=== PATIENT | male | born 1975 | race Caucasian/White ===

== ENCOUNTER → 2016-09-10 | Outpatient (CLI) | payer MEDICAID ==
[~2016-09-10] MED LIST: /PANT40TA PO; AMLO5TAB2 PO; BACL10TA PO; BUSP15TA47 PO; NORCOTAB PO; PAXI20TA3 PO; TRAZ10TA PO; VICOBULK PO; ativan PO
--- NOTE | 2016-09-21 00:32 | ECWPNPC ---
PATIENT NAME: LUL ORTIZ : 1975 GENDER: MALE VISIT DATE: 09/10/2016 DISCHARGE DATE: 09/10/16 1556 VISIT LOCKED DATE TIME: PHYSICIAN: BETAHNY HUTCHISON RESOURCE: BETHANY HUTCHISON REASON FOR APPOINTMENT 1. BACK HISTORY OF PRESENT ILLNESS HISTORY OF PRESENT ILLNESS: 41 YEAR OLD MALE PATIENT WITH HISTORY OF CHRONIC BACK PAIN. PATIENT DESCRIBES THE PAIN ACHING, STABBING, THROBBING, SORE, SHOOTING, AND HAVING IT ALL THE TIME WITH A PAIN SCORE OF 6/10 ON TODAY'S VISIT. PATIENT REPORTS THAT HE WAS HOSPITALIZED ON 2016 DUE TO UTI AND PRESSURE WOUNDS. PATIENT REPORTS THAT TAKING TRAMADOL HELPS HIM SLEEP AT NIGHT. MELOXICAM GIVES UPSETS HIS STOMACH. PATIENT REPORTS THAT LIDOCAINE CREAM WORKS PRETTY GOOD FOR THE APPLIED AREA. PATIENT STATES THAT FIORICET WORKS GOOD AT KEEPING HIS MIGRAINES DOWN. PATIENT REPORTS THAT HE IS STILL RECOVERING FROM PRESSURE ULCERS AND THAT HE HAS TO WAIT BEFORE GETTING ANY MORE INJECTIONS AT THIS TIME. PATIENT INQUIRED WHAT HE CAN TAKE FOR THE PAIN SINCE HE CAN NOT HAVE INJECTIONS AT THIS TIME. PATIENT DENIES UNEXPLAINABLE WEIGHT LOSS, FEVER, CHILLS, NEW CHANGES ON HIS URINARY OR BOWEL CONTROL. FALL RISK SCREENING: SCREENING :NO FALLS IN THE PAST YEAR CURRENT MEDICATIONS TAKING AMLODIPINE BESYLATE 10 MG TABLET ORALLY ONCE DAILY, NOTES: 03/05/16 AT 0415 TAKING LISINOPRIL 10 MG TABLET ORALLY ONCE DAILY, NOTES: 03/05/16414 TAKING PROTONIX 40 MG TABLET DELAYED RELEASE ORALLY TWICE DAILY, NOTES: 03/05/16414 TAKING SPIRIVA HANDIHALER 18 MCG CAPSULE INHALATION ONCE DAILY, NOTES: 03/05/16414 TAKING LIDOCAINE 5 % OINTMENT 1 APPLICATION TO AFFECTED AREA NEEDED EXTERNALLY THREE TIMES A DAY TO PAINFUL AREAS OF BACK AND SHOULDERS USE SMALL AMOUNT, NOTES: 03/04/162229 TAKING VENTOLIN HFA 108 (90 BASE) MCG/ACT AEROSOL SOLUTION 2 PUFFS NEEDED INHALATION EVERY 4 HRS TAKING FIORICET APAP 325-50-40 CAPSULE 1 CAPSULE NEEDED ORALLY AT ONSET OF MIGRAINE MDD=1 TAKING TRAZODONE HCL 100 MG TABLET 1 TABLET AT BEDTIME ORALLY ONCE A DAY TAKING FOLIC ACID 1 MG TABLET 1 TABLET ORALLY ONCE A DAY NOT-TAKING MELOXICAM 15 MG TABLET ORALLY ONCE DAILY, NOTES: 03/05/165 NOT-TAKING METHOCARBAMOL 500 MG TABLET ORALLY ONCE DAILY, NOTES: 03/05/16414 NOT-TAKING LIDOCAINE 4 % CREAM DIRECTED EXTERNALLY APPLY TO NECK, THORACIC SCAR AND LOW BACK PAINFUL AREAS Q 6 HRS PRN PAIN DISCONTINUED ZOLPIDEM TARTRATE 10 MG TABLET 1 TABLET AT BEDTIME NEEDED ORALLY ONCE A DAY, NOTES: 03/03/16 MEDICATION LIST REVIEWED AND RECONCILED WITH THE PATIENT PAST MEDICAL HISTORY HYPERTENSION ASTHMA GERD KIDNEY INFECTIONS BACK PAIN ARTHRITIS NECK PAIN DEPRESSION SPINABIFIDA NEUROGENIC BLADDER ALLERGIES ASPIRIN EC: RASH: ALLERGY LATEX: RASH: ALLERGY BANANAS: NAUSEA/VOMITING: SIDE EFFECTS CIPRO: NAUSEA/VOMITING: SIDE EFFECTS SURGICAL HISTORY RIGHT KNEE SURGERY RIGHT AND LEFT ANKLE SURGERY BACK SURGERY-METAL RODS PLACED RIGHT AND LEFT HIP SURGERY-METAL IMPLANT IN LEFT TOE SURGERY BILATERAL FEET EPIC SPECIALIST SHUNT PLACEMENT COLOSTOMY 2011 FAMILY HISTORY NO FAMILY HISTORY DOCUMENTED. SOCIAL HISTORY GENERAL: TOBACCO USE ARE YOU A:NONSMOKER LEARNING BARRIERS / SPECIAL NEEDS ORIENTED TO PLAN OF CARE: PATIENT, PAIN MANAGEMENT PATIENT, ORIENTED TO PLAN OF CARE: PATIENT, PAIN MANAGEMENT PATIENT. NEW PATIENT PAIN DIARY TODAY'S VISITNOTES FROM 0-10, WHAT LEVEL IS YOUR PAIN TODAY?0 PAIN CLINIC PFS, CLERGY, PUBLIC HEALTH REFERRALS PFS REFERRAL NEEDED?NO CLERGY REFERRAL NEEDED?NO PUBLIC HEALTH REFERRAL NEEDED?NO WAS THE PROVIDER NOTIFIED OF ANY PERTINENT INFO?NO PFS REFERRAL NEEDED?NO CLERGY REFERRAL NEEDED?NO PUBLIC HEALTH REFERRAL NEEDED?NO WAS THE PROVIDER NOTIFIED OF ANY PERTINENT INFO?NO HOSPITALIZATION/MAJOR DIAGNOSTIC PROCEDURE RELATED TO ORTHOPEDIC SURGERY URINARY TRACT INFECTION 2015 UTI 07/2016 REVIEW OF SYSTEMS CONSTITUTIONAL: ANY CHANGE IN YOUR MEDICAL CONDITION? YES HOSPITALIZED 07/[address] [facility]. PT STATES DEVELOPED SACRAL PRESSURE ULCERS. . CHILLS NO . FEVER NO . INFECTION: DO YOU HAVE NEW INFECTIONS? NO . DO YOU HAVE HISTORY OF MRSA? NO . MUSCULOSKELETAL: ANY NEW PATTERNS OF PAIN OR NUMBNESS? NO . GASTROENTEROLOGY: ANY NEW CHANGE IN BOWEL CONTROL? NO . GENITOURINARY: ANY NEW CHANGE IN BLADDER CONTROL? NO . IS THERE A CHANCE YOU COULD BE ? NO . HEMATOLOGY/LYMPH: DO YOU TAKE ANY BLOOD THINNERS? (FOR EXAMPLE- COUMADIN, PLAVIX, AGGRENOX, PLATEL, PRADAXA, OR XARELTO) NO . WHEN WAS YOUR LAST DOSE? DATE: TIME: . NEUROLOGY: HAVE YOU FALLEN IN THE PAST 6 MONTHS? NO . ANY NEW EXTREMITY NUMBNESS OR WEAKNESS? NO . CARDIOLOGY: DO YOU HAVE A PACEMAKER OR DEFIBRILLATOR? NO . RESPIRATORY: HAVE YOU BEEN SICK IN THE PAST WEEK? NO . FEVER NO . FLU LIKE SYMPTOMS? NO . COUGH NO . INTEGUMENTARY: DO YOU HAVE ANY RASHES OR OPEN SORES? YES &QUOT; PRESSURE WOUNDS&QUOT; . ALLERGIC/IMMUNO: ARE YOU ALLERGIC TO SHELLFISH OR IV DYE? NO . ANY NEW ALLERGIES? NO . PSYCHIATRIC: DO YOU HAVE THOUGHTS OF HURTING YOURSELF OR SOMEONE ELSE? NO . ARE YOU ABUSED, NEGLECTED, OR IN AN UNSAFE ENVIRONMENT? NO . ENDOCRINOLOGY: ARE YOU DIABETIC? NO . OTHER: DO YOU NEED ANY PRESCRIPTIONS? YES FIORICET/LIDOCAINE CREAM . IF YES, PLEASE LIST: ____ . ANY NEW PROBLEMS WITH YOUR MEDICATIONS? NO . WHEN DID YOU LAST EAT? ____ . WHEN DID YOU LAST DRINK? ____ . WHAT DID YOU LAST DRINK? ____ . NAME OF PERSON DRIVING YOU HOME? ____ . DO YOU HAVE ANY OTHER QUESTIONS OR CONCERNS NO . REVIEWED BY: PROVIDER: BETHANY HUTCHISON MD . VITAL SIGNS WT 105 LBS, HT 60 IN, BMI 20.50 INDEX, BP 135/95 MM HG, HR 84 /MIN, RR 16 /MIN, TEMP 96.9 F, OXYGEN SAT % 100, NA INITIALS TL 1455, REVIEWED BY: MLF. EXAMINATION : PATIENT IS ALERT O X 3 AND COOPERATIVE. THERE IS TENDERNESS IN THE RIGHT AND LEFT SHOULDER AND THORACIC PARASPINAL MUSCLE GROUP, WITH BANDS OF TISSUES, RESTRICTION OF MOVEMENT, AND PRESENCE OF TRIGGER POINTS. ASSESSMENTS MYALGIA - M79.1 (PRIMARY) POST LAMINECTOMY SYNDROME - M96.1 SPASTICITY - R25.2 PARAPLEGIA - G82.20 TREATMENT MYALGIA REFILL LIDOCAINE OINTMENT, 5 %, 1 APPLICATION TO AFFECTED AREA NEEDED, EXTERNALLY, THREE TIMES A DAY TO PAINFUL AREAS OF BACK AND SHOULDERS USE SMALL AMOUNT, 30 DAY(S), 3 TUBE, REFILLS 1, NOTES: 03/04/16 2230 REFILL FIORICET APAP CAPSULE, 325-50-40, 1 CAPSULE NEEDED, ORALLY, AT ONSET OF MIGRAINE MDD=1, 30 DAY(S), 15, REFILLS 1 NOTES: WE DISCUSSED SEVERAL ISSUES ABOUT MR. ORTIZ PAIN MANAGEMENT CASE. AT THIS TIME DUE TO THE PRESSURE ULCERS I DISCUSSED WITH THE PATIENT THAT WE WILL NEED TO HOLD OFF ANY PROCEDURES, PATIENT AGREES. TODAY I WILL REFILL PATIENTS LIDOCAINE CREAM AND FIORICET. PATIENT TO FOLLOW UP WITH ME IN 6 WEEKS. INSTRUCTIONS WERE GIVEN, QUESTIONS WERE ANSWERED, PATIENT REPORTS UNDERSTANDING AND AGREES WITH THE PLAN. I, KANDIS CAMPBELL, DOCUMENTED THE ABOVE INFORMATION ACTING A SCRIBE FOR DR. HUTCHISON. I HAVE REVIEWED THE ABOVE DOCUMENT, WRITTEN BY KANDIS CAMPBELL SCRIBE AND I VERIFY THAT IT IS ACCURATE. PROCEDURE CODES FA211 ESTABILISHED PATIENT [facility] FACILITY CHARGE G8730 PAIN ASSESS POS TOOL F/U PLAN DOC G8427 DOC MEDS VERIFIED W/PT OR RE DISPOSITION & COMMUNICATION ELECTRONICALLY SIGNED BY BETHANY HUTCHISON MD ON 09/20/2016 AT 07:32 PM EDT DISCLAIMER : THIS IS A VISIT SUMMARY EXTRACTED FROM THE [email or web address] CHART. IT IS NOT A COPY OF THE [employer] PROGRESS NOTE. MTDD
== END ==
LOC: M PAIN 15:00
PROVIDERS: ATTEND Anesthesiology
DX: Z09 Encounter for follow-up examination after completed treatment for conditions other than malignant neoplasm (principal); G89.29 Other chronic pain; M79.1 Myalgia; M96.1 Postlaminectomy syndrome, not elsewhere classified; R25.2 Cramp and spasm; G82.20 Paraplegia, unspecified; I10 Essential (primary) hypertension; J45.909 Unspecified asthma, uncomplicated; K21.9 Gastro-esophageal reflux disease without esophagitis; M19.90 Unspecified osteoarthritis, unspecified site; F32.9 Major depressive disorder, single episode, unspecified; Q05.9 Spina bifida, unspecified; N31.9 Neuromuscular dysfunction of bladder, unspecified; Z88.6 Allergy status to analgesic agent; Z91.040 Latex allergy status; Z91.018 Allergy to other foods; Z88.8 Allergy status to other drugs, medicaments and biological substances; Z79.899 Other long term (current) drug therapy

== ENCOUNTER → 2017-05-06 | Outpatient (CLI) | payer MEDICAID ==
--- NOTE | 2017-05-23 | ECWPNPC ---
PATIENT NAME: ULL ORTIZ : 1975 GENDER: MALE VISIT DATE: 05/06/2017 DISCHARGE DATE: 05/06/17 1507 VISIT LOCKED DATE TIME: PHYSICIAN: BETHANY HUTCHISON RESOURCE: BETHANY HUTCHISON REASON FOR APPOINTMENT 1. LEFT SHOULDER PAIN HISTORY OF PRESENT ILLNESS NEW PATIENT CONSULT: WHEN DID YOUR PAIN FIRST START? . BRIEFLY DESCRIBE HOW YOUR PAIN STARTED? . HOW DOES YOUR PAIN CHANGE WITH TIME? . DOES YOUR PAIN AWAKEN YOU FROM SLEEP? . HOW MANY HOURS OF SLEEP DO YOU NORMALLY GET? . ANY DIAGNOSTIC TESTING? . FACILITY WHERE TESTS WERE DONE? ____. PAIN TREATMENT TREATMENT YES CANCER HAVE YOU EVER HAD ANY TYPE OF CANCER?NO NO. 41 YEAR OLD MALE PATIENT WITH HISTORY OF CHRONIC LEFT SHOULDER PAIN. PATIENT DESCRIBES THE PAIN ACHING, THROBBING, AND TENDER WITH A PAIN SCORE OF 7/10. PATIENT REPORTS THE PAIN STARTED ROUGHLY 6 MONTHS AGO WITH NO TRAUMA. PATIENT STATES THAT IT IS DIFFICULT TO MOVE HIS LEFT ARM DUE TO THE PAIN. PATIENT IS RECEIVING VICODIN FROM HIS PRIMARY CARE PHYSICIAN FOR THIS PAIN. PATIENT DENIES UNEXPLAINABLE WEIGHT LOSS, FEVER, CHILLS, NEW CHANGES ON HIS URINARY OR BOWEL CONTROL. PAIN SCREENING: PATIENT HAS A COMPLAINT OF ACUTE OR CHRONIC PAIN :YES FALL RISK SCREENING: SCREENING :NO FALLS IN THE PAST YEAR POOLE INVENTORY: QUESTIONNAIRE ASSESSEDTBD SCORE VALUE CALCULATED TBD CURRENT MEDICATIONS TAKING LIDOCAINE 5 % OINTMENT 1 APPLICATION TO AFFECTED AREA NEEDED EXTERNALLY THREE TIMES A DAY TO PAINFUL AREAS OF BACK AND SHOULDERS USE SMALL AMOUNT TAKING FIORICET APAP 325-50-40 CAPSULE 1 CAPSULE NEEDED ORALLY AT ONSET OF MIGRAINE MDD=1 TAKING AMLODIPINE BESYLATE 10 MG TABLET ORALLY ONCE DAILY, NOTES: 03/05/16 AT 0415 TAKING LISINOPRIL 10 MG TABLET ORALLY ONCE DAILY, NOTES: 03/05/16414 TAKING PROTONIX 40 MG TABLET DELAYED RELEASE ORALLY TWICE DAILY, NOTES: 03/05/16414 TAKING SPIRIVA HANDIHALER 18 MCG CAPSULE INHALATION ONCE DAILY, NOTES: 03/05/16414 TAKING VENTOLIN HFA 108 (90 BASE) MCG/ACT AEROSOL SOLUTION 2 PUFFS NEEDED INHALATION EVERY 4 HRS TAKING TRAZODONE HCL 100 MG TABLET 1 TABLET AT BEDTIME ORALLY ONCE A DAY TAKING FOLIC ACID 1 MG TABLET 1 TABLET ORALLY ONCE A DAY TAKING VICODIN 5-300 MG TABLET 1 TABLET NEEDED ORALLY EVERY NOT-TAKING MELOXICAM 15 MG TABLET ORALLY ONCE DAILY, NOTES: 03/05/16414 NOT-TAKING METHOCARBAMOL 500 MG TABLET ORALLY ONCE DAILY, NOTES: 03/05/16414 NOT-TAKING LIDOCAINE 4 % CREAM DIRECTED EXTERNALLY APPLY TO NECK, THORACIC SCAR AND LOW BACK PAINFUL AREAS Q 6 HRS PRN PAIN MEDICATION LIST REVIEWED AND RECONCILED WITH THE PATIENT PAST MEDICAL HISTORY HYPERTENSION ASTHMA GERD KIDNEY INFECTIONS BACK PAIN ARTHRITIS NECK PAIN DEPRESSION SPINABIFIDA NEUROGENIC BLADDER ALLERGIES ASPIRIN EC: RASH: ALLERGY LATEX: RASH: ALLERGY BANANAS: NAUSEA/VOMITING: SIDE EFFECTS CIPRO: NAUSEA/VOMITING: SIDE EFFECTS SURGICAL HISTORY RIGHT KNEE SURGERY RIGHT AND LEFT ANKLE SURGERY BACK SURGERY-METAL RODS PLACED RIGHT AND LEFT HIP SURGERY-METAL IMPLANT IN LEFT TOE SURGERY BILATERAL FEET FULL STACK ENGINEER SHUNT PLACEMENT COLOSTOMY 2011 FAMILY HISTORY FATHER: ALIVE MOTHER: ALIVE, DIAGNOSED WITH HYPERTENSION SIBLINGS: ALIVE NO CHILDREN. 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 DIET: REGULAR DIET. EXERCISE: NO REGULAR EXERCISE. MARITAL STATUS: . OTHERS AT HOME: CAT AT HOME. PETS: YES CAT. YAZIDI [id number] SABIANIST PENTECOSTALISM LANGUAGE LANGUAGES SPOKEN:[place] EDUCATION LEVEL OF EDUCATION:[employer] LEARNING BARRIERS / SPECIAL NEEDS BARRIERS TO LEARNING?YES LEARNING PREFERENCES?YES :DEMONSTRATION/VERBAL INSTRUCTION SPECIAL DEVICES?YES :WHEELCHAIR PARKING METER INSTALLER NEEDED?YES FOR READING AND WRITING ANY PAPERWORK IMMUNIZATION PROGRAM YES CAT. MEDICATION ABUSE YES PT STATES SEVERAL YEARS AGO (6) HE ABUSED PAIN MEDICAIONS PAIN CLINIC PFS, CLERGY, PUBLIC HEALTH REFERRALS PFS REFERRAL NEEDED?NO CLERGY REFERRAL NEEDED?NO PUBLIC HEALTH REFERRAL NEEDED?NO WAS THE PROVIDER NOTIFIED OF ANY PERTINENT INFO?NO HAS THE PATIENT BEEN EDUCATED REGARDING HIS/HER PLAN OF CARE?YES HAS THE PATIENT BEEN EDUCATED REGARDING PAIN, THE RISK FOR PAIN, THE IMPORTANCE OF EFFECTIVE PAIN MANAGEMENT, AND THE PAIN ASSESSMENT PROCESS?YES PATIENT: ____. ADVANCE DIRECTIVES HEALTH CARE PROXY?NO WOULD YOU LIKE MORE INFORMATION?YES GAVE PT PAPERWORK DO YOU HAVE A DNR?NO WOULD YOU LIKE MORE INFORMATION?NO RETIRED: NO, PT DISABLED. HOSPITALIZATION/MAJOR DIAGNOSTIC PROCEDURE RELATED TO ORTHOPEDIC SURGERY URINARY TRACT INFECTION 2015 UTI 07/2016 REVIEW OF SYSTEMS REVIEWED BY: PROVIDER: BETHANY HUTCHISON MD . CONSTITUTIONAL: ANY CHANGE IN YOUR MEDICAL CONDITION? NO . CHILLS NO . FEVER NO . INFECTION: DO YOU HAVE NEW INFECTIONS? NO . DO YOU HAVE HISTORY OF MRSA? NO . MUSCULOSKELETAL: ANY NEW PATTERNS OF PAIN OR NUMBNESS? YES LEFT SHOULDER . SYTEMIC LUPUS NO . GASTROENTEROLOGY: ANY NEW CHANGE IN BOWEL CONTROL? NO . BARRETTS ESOPHAGUS NO . CIRRHOSIS NO . HEPATITIS NO . LIVER FAILURE NO . ACID REFLUX NO . UNEXPLAINED WEIGHT LOSS NO . GENITOURINARY: ANY NEW CHANGE IN BLADDER CONTROL? PT SELF CATHS AND HAS BEEN FOR ALONG TIME . IS THERE A CHANCE YOU COULD BE ? NO . HEMATOLOGY/LYMPH: DO YOU TAKE ANY BLOOD THINNERS? (FOR EXAMPLE- COUMADIN, PLAVIX, AGGRENOX, PLATEL, PRADAXA, OR XARELTO) NO . WHEN WAS YOUR LAST DOSE? DATE: TIME: . LOW PLATELET COUNT NO . SICKLE CELL DISEASE NO . VON WILLIEBRANDS NO . FACTOR V LEIDEN NO . THALLASEMIA NO . ANEMIA NO . EASY BRUISING NO . NEUROLOGY: HAVE YOU FALLEN IN THE PAST 6 MONTHS? NO . ANY NEW EXTREMITY NUMBNESS OR WEAKNESS? NO . HEAD INJURY NO . DEMENTIA NO . CEREBRAL PALSY NO . MULTIPLE SCLEROSIS NO . DIZZINESS NO . HEADACHE NO . STROKES NO . VERTIGO NO . CARDIOLOGY: DO YOU HAVE A PACEMAKER OR DEFIBRILLATOR? NO . ANGINA NO . HEART ATTACK NO . HEART SURGERY NO . CONGESTIVE HEART FAILURE/FLUID OVERLOAD NO . CHEST PAIN NO . HIGH BLOOD PRESSURE NO . IRREGULAR HEART BEAT NO . RESPIRATORY: HAVE YOU BEEN SICK IN THE PAST WEEK? NO . FEVER NO . FLU LIKE SYMPTOMS? NO . CPAP NO . BYPAP NO . ASTHMA NO . EMPHYSEMA NO . CHRONIC LUNG DISEASES ASTHMA AND IS ON RESPIRATORY MEDS, YES . SHORTNESS OF BREATH ON EXERTION NO . DO YOU USE ANY TYPE OF TOBACCO (SMOKE, SMOKELESS, CHEW)? NO . COUGH NO . SNORING NO . INTEGUMENTARY: DO YOU HAVE ANY RASHES OR OPEN SORES? NO . ALLERGIC/IMMUNO: ARE YOU ALLERGIC TO SHELLFISH OR IV DYE? NO . ANY NEW ALLERGIES? NO . PSYCHIATRIC: DO YOU HAVE THOUGHTS OF HURTING YOURSELF OR SOMEONE ELSE? NO . ARE YOU ABUSED, NEGLECTED, OR IN AN UNSAFE ENVIRONMENT? NO . ENDOCRINOLOGY: ARE YOU DIABETIC? NO . THYROID DISORDER NO . OTHER: DO YOU NEED ANY PRESCRIPTIONS? NO . IF YES, PLEASE LIST: ____ . ANY NEW PROBLEMS WITH YOUR MEDICATIONS? NO . WHEN DID YOU LAST EAT? ____ . WHEN DID YOU LAST DRINK? ____ . WHAT DID YOU LAST DRINK? ____ . NAME OF PERSON DRIVING YOU HOME? ____ . DO YOU HAVE ANY OTHER QUESTIONS OR CONCERNS NO . VITAL SIGNS WT 111.9 LBS, HT 60 IN, BMI 21.85 INDEX, BP 163/97 MM HG, HR 94 /MIN, RR 18 /MIN, TEMP 97.0 F, OXYGEN SAT % 100%, NA INITIALS TL 1310, REVIEWED BY: KG. EXAMINATION : PATIENT IS ALERT O X 3 AND COOPERATIVE. TENDERNESS IN THE LEFT SHOULDER AREA. MRI OF THE LEFT SHOULDER AREA ON THE 02/18/17 SHOWS MINOR TENDINOSIS OF THE DISTAL SUPRASPINATUS TENDON. ASSESSMENTS MYALGIA - M79.1 (PRIMARY) PAIN IN LEFT SHOULDER - M25.512 OTHER CHRONIC PAIN - G89.29 TREATMENT MYALGIA NOTES: WE DISCUSSED SEVERAL ISSUES WITH MR. ORTIZ'S PAIN MANAGEMENT CASE. AT THIS TIME I WOULD LIKE THE PATIENT TO START VOLATREN GEL ON THE LEFT SHOULDER TO SEE IF IT WILL AID IN RELIEF FROM PAIN AND INFLAMMATION. PATIENT WAS ADVISED TO STOP THE MEDICATION IF HE HAS ANY ADVERSE SIDE EFFECTS FROM THE MEDICATION. DUE TO THE BANDS OF TISSUE AND RESTRICTION OF MOVEMENT WE DISCUSSED MOVING FORWARD WITH TRIGGER POINT INJECTIONS. WE DISCUSSED THE RISKS, BENENFITS, AND ALTNERATIVES OF THE INJECTION AND THE PATIENT WOULD LIKE TO PROCEED. INSTRUCTIONS WERE GIVEN, QUESTIONS WERE ANSWERED, PATIENT REPORTS UNDERSTANDING AND AGREES WITH THE PLAN. I, LAURENCE SANDOVAL, DOCUMENTED THE ABOVE INFORMATION ACTING A SCRIBE FOR DR. HUTCHISON. I HAVE REVIEWED THE ABOVE DOCUMENT, WRITTEN BY LAURENCE MENJIVAR AND I VERIFY THAT IT IS ACCURATE. OTHERS START VOLTAREN GEL, 1 %, DIRECTED, TRANSDERMAL AT LEFT SHOULDER, THREE TIMES DAILY NEEDED, 30 DAY(S), 1, REFILLS 2 PROCEDURE CODES FA211 ESTABILISHED PATIENT [facility] FACILITY CHARGE G8427 DOC MEDS VERIFIED W/PT OR RE G8730 PAIN ASSESS POS TOOL F/U PLAN DOC DISPOSITION & COMMUNICATION FOLLOW UP TPI AFTER APPROVAL ELECTRONICALLY SIGNED BY BETHANY HUTCHISON MD ON 05/22/2017 AT 10:07 PM EST DISCLAIMER : THIS IS A VISIT SUMMARY EXTRACTED FROM THE [employer] CHART. IT IS NOT A COPY OF THE [employer] PROGRESS NOTE. MTDD
== END ==
LOC: M PAIN 13:30
PROVIDERS: ATTEND Anesthesiology
DX: M79.1 Myalgia (principal); M25.512 Pain in left shoulder; G89.29 Other chronic pain; I10 Essential (primary) hypertension; F17.210 Nicotine dependence, cigarettes, uncomplicated; Z79.891 Long term (current) use of opiate analgesic; Z79.899 Other long term (current) drug therapy; Z88.6 Allergy status to analgesic agent; Z88.1 Allergy status to other antibiotic agents; Z91.040 Latex allergy status; Z91.018 Allergy to other foods

== ENCOUNTER → 2017-05-17 | Outpatient (CLI) | payer MEDICAID ==
[~2017-05-17] MED LIST changes: +BUPIVACAINE HCL 0.25% 10 ML VIAL As Ordered ONE; +BUPIVACAINE HCL 0.25% 30 ML VIAL As Ordered ONE; +TRIAMCINOLONE ACETONIDE SUSP 40 MG/ML VIAL (J3301) As Ordered ONE
--- NOTE | 2017-05-22 23:41 | ECWPNPC ---
PATIENT NAME: LUL ORTIZ : 1975 GENDER: MALE VISIT DATE: 05/17/2017 DISCHARGE DATE: 05/17/17 1606 VISIT LOCKED DATE TIME: PHYSICIAN: BETHANY HUTCHISON RESOURCE: BETHANY HUTCHISON REASON FOR APPOINTMENT 1. TPI-PATIENT NEEDS ASSISTANCE WITH READING AND WRITING PLEASE HISTORY OF PRESENT ILLNESS HISTORY OF PRESENT ILLNESS: PAIN THE PATIENT DESCRIBES THE PAIN... FALL RISK SCREENING: SCREENING :NO FALLS IN THE PAST YEAR CURRENT MEDICATIONS TAKING LIDOCAINE 5 % OINTMENT 1 APPLICATION TO AFFECTED AREA NEEDED EXTERNALLY THREE TIMES A DAY TO PAINFUL AREAS OF BACK AND SHOULDERS USE SMALL AMOUNT, NOTES: 05/16 1900 TAKING FIORICET APAP 325-50-40 CAPSULE 1 CAPSULE NEEDED ORALLY AT ONSET OF MIGRAINE MDD=1, NOTES: 05/15 TAKING AMLODIPINE BESYLATE 10 MG TABLET ORALLY ONCE DAILY, NOTES: 05/17 800 TAKING LISINOPRIL 10 MG TABLET ORALLY ONCE DAILY, NOTES: 05/17 800 TAKING PROTONIX 40 MG TABLET DELAYED RELEASE ORALLY TWICE DAILY, NOTES: 05/17 800 TAKING SPIRIVA HANDIHALER 18 MCG CAPSULE INHALATION ONCE DAILY, NOTES: 05/17 800 TAKING FOLIC ACID 1 MG TABLET 1 TABLET ORALLY ONCE A DAY, NOTES: 05/17 800 TAKING VENTOLIN HFA 108 (90 BASE) MCG/ACT AEROSOL SOLUTION 2 PUFFS NEEDED INHALATION EVERY 4 HRS, NOTES: NONE RECENT TAKING TRAZODONE HCL 100 MG TABLET 1 TABLET AT BEDTIME ORALLY ONCE A DAY, NOTES: 05/16 2200 TAKING VOLTAREN 1 % GEL DIRECTED TRANSDERMAL AT LEFT SHOULDER THREE TIMES DAILY NEEDED, NOTES: HASN'T GOTTEN FILLED YET DUE TO PRE-APPROVAL DISCONTINUED VICODIN 5-300 MG TABLET 1 TABLET NEEDED ORALLY EVERY DISCONTINUED MELOXICAM 15 MG TABLET ORALLY ONCE DAILY, NOTES: 03/05/16414 DISCONTINUED METHOCARBAMOL 500 MG TABLET ORALLY ONCE DAILY, NOTES: 03/05/16414 DISCONTINUED LIDOCAINE 4 % CREAM DIRECTED EXTERNALLY APPLY TO NECK, THORACIC SCAR AND LOW BACK PAINFUL AREAS Q 6 HRS PRN PAIN MEDICATION LIST REVIEWED AND RECONCILED WITH THE PATIENT PAST MEDICAL HISTORY HYPERTENSION ASTHMA GERD KIDNEY INFECTIONS BACK PAIN ARTHRITIS NECK PAIN DEPRESSION SPINABIFIDA NEUROGENIC BLADDER ALLERGIES ASPIRIN EC: RASH: ALLERGY LATEX: RASH: ALLERGY BANANAS: NAUSEA/VOMITING: SIDE EFFECTS CIPRO: NAUSEA/VOMITING: SIDE EFFECTS SOCIAL HISTORY GENERAL: TOBACCO USE ARE YOU A:CURRENT SMOKER ARE YOU INTERESTED IN QUITTING?NOT READY TO QUIT COUNSELED THE PATIENT ON SMOKING EFFECTS, EDUCATION [id number]/07/2017 HOW MANY CIGARETTES A DAY DO YOU SMOKE?11-20 HOW SOON AFTER YOU WAKE UP DO YOU SMOKE YOUR FIRST CIGARETTE?WITHIN 5 MIN HOW OFTEN DO YOU SMOKE CIGARETTES?EVERY DAY PATIENT COUNSELED ON THE DANGERS OF TOBACCO USE AND URGED TO QUIT:05/17/2017 ALCOHOL SCREENING POINTS0 INTERPRETATIONNEGATIVE RECREATIONAL DRUG USE DRUG USE?NO CAFFEINE CAFFEINE USE?YES 3 CUPS A DAY AND CAFFEINE SODA OCCUPATION: SABLED DOES NOT WORK. DIET: REGULAR DIET. EXERCISE: NO REGULAR EXERCISE. MARITAL STATUS: . OTHERS AT HOME: CAT AT HOME. PETS: YES CAT. TAOISM [id number] SABIANISM CHRISTIANITY LANGUAGE LANGUAGES SPOKEN:SWEDISH EDUCATION LEVEL OF EDUCATION:[employer] LEARNING BARRIERS / SPECIAL NEEDS BARRIERS TO LEARNING?YES COMMENTSDOCUMENTED IN NOTES SECTION> PT. CAN NOT READ HEARING IMPAIRED?NO VISION IMPAIRED?YES :CORRECTIVE LENSES READINESS TO LEARN?YES LEARNING PREFERENCES?YES :DEMONSTRATION/VERBAL INSTRUCTION LEARNING CAPABILITIES PRESENT?YES EMOTIONAL BARRIERS?NO SPECIAL DEVICES?YES :WHEELCHAIR GOLF BALL MOLDER NEEDED?YES FOR READING AND WRITING ANY PAPERWORK IMMUNIZATION PROGRAM YES CAT. MEDICATION ABUSE YES PT STATES SEVERAL YEARS AGO (6) HE ABUSED PAIN MEDICAIONS PAIN CLINIC PFS, CLERGY, PUBLIC HEALTH REFERRALS PFS REFERRAL NEEDED?NO CLERGY REFERRAL NEEDED?NO PUBLIC HEALTH REFERRAL NEEDED?NO WAS THE PROVIDER NOTIFIED OF ANY PERTINENT INFO?NO HAS THE PATIENT BEEN EDUCATED REGARDING HIS/HER PLAN OF CARE?YES HAS THE PATIENT BEEN EDUCATED REGARDING PAIN, THE RISK FOR PAIN, THE IMPORTANCE OF EFFECTIVE PAIN MANAGEMENT, AND THE PAIN ASSESSMENT PROCESS?YES REVIEWED BY: 05/17/17 6545 AD. PATIENT: ____. ADVANCE DIRECTIVES HEALTH CARE PROXY?NO WOULD YOU LIKE MORE INFORMATION?YES GAVE PT PAPERWORK DO YOU HAVE A DNR?NO WOULD YOU LIKE MORE INFORMATION?NO LIVING WILL?NO WOULD YOU LIKE MORE INFORMATION?NO POWER OF COLD PRESS OPERATOR?NO WOULD YOU LIKE MORE INFORMATION?NO RETIRED: NO, PT DISABLED. DOMESTIC VIOLENCE DO YOU FEEL SAFE IN YOUR ENVIRONMENT?YES REVIEW OF SYSTEMS REVIEWED BY: PROVIDER: . CONSTITUTIONAL: ANY CHANGE IN YOUR MEDICAL CONDITION? NO . CHILLS NO . FEVER NO . INFECTION: DO YOU HAVE NEW INFECTIONS? NO . DO YOU HAVE HISTORY OF MRSA? YES, 8 YEARS AGO IN RIGHT HIP . MUSCULOSKELETAL: ANY NEW PATTERNS OF PAIN OR NUMBNESS? NO . GASTROENTEROLOGY: ANY NEW CHANGE IN BOWEL CONTROL? NO . GENITOURINARY: ANY NEW CHANGE IN BLADDER CONTROL? NO . IS THERE A CHANCE YOU COULD BE ? NO . HEMATOLOGY/LYMPH: DO YOU TAKE ANY BLOOD THINNERS? (FOR EXAMPLE- COUMADIN, PLAVIX, AGGRENOX, PLATEL, PRADAXA, OR XARELTO) NO . WHEN WAS YOUR LAST DOSE? DATE: TIME: . NEUROLOGY: HAVE YOU FALLEN IN THE PAST 6 MONTHS? YES, 4 MONTHS AGO FELL OUT OF HIS WHEELCHAIR--INJURYING HIS LEFT SHOULDER . ANY NEW EXTREMITY NUMBNESS OR WEAKNESS? NO . CARDIOLOGY: DO YOU HAVE A PACEMAKER OR DEFIBRILLATOR? NO . RESPIRATORY: HAVE YOU BEEN SICK IN THE PAST WEEK? NO . FEVER NO . FLU LIKE SYMPTOMS? NO . COUGH NO . INTEGUMENTARY: DO YOU HAVE ANY RASHES OR OPEN SORES? NO . ALLERGIC/IMMUNO: ARE YOU ALLERGIC TO SHELLFISH OR IV DYE? NO . ANY NEW ALLERGIES? NO . PSYCHIATRIC: DO YOU HAVE THOUGHTS OF HURTING YOURSELF OR SOMEONE ELSE? NO . ARE YOU ABUSED, NEGLECTED, OR IN AN UNSAFE ENVIRONMENT? NO . ENDOCRINOLOGY: ARE YOU DIABETIC? NO . OTHER: DO YOU NEED ANY PRESCRIPTIONS? NO . IF YES, PLEASE LIST: ____ . ANY NEW PROBLEMS WITH YOUR MEDICATIONS? NO . WHEN DID YOU LAST EAT? 05/16 1700 . WHEN DID YOU LAST DRINK? 05/17 1000 . WHAT DID YOU LAST DRINK? PEPSI . NAME OF PERSON DRIVING YOU HOME? [employer] . DO YOU HAVE ANY OTHER QUESTIONS OR CONCERNS NO . VITAL SIGNS WT 111.9 LBS, HT 60 IN, BMI 21.85 INDEX, BP 167/102 L ARM, REPEAT BP 163/96 R ARM, HR 86 /MIN, RR 16 /MIN, TEMP 97.5 F, OXYGEN SAT % 100%, NA INITIALS TL 1427. ASSESSMENTS MYALGIA - M79.1 (PRIMARY) PROCEDURES PN TRIGGER POINT INJECTION WITH STEROIDS PRE PROCEDURE DIAGNOSIS 1. MYALGIA 2. PAIN AT LEFT SHOULDER AREA POST PROCEDURE DIAGNOSIS 1. MYALGIA 2. PAIN AT LEFT SHOULDER AREA PROCEDURE TRIGGER POINT INJECTION AT LEFT SHOULDER AREA SURGEON DR. BETHANY HUTCHISON FUELS SALES REPRESENTATIVE NONE ANESTHESIA LOCAL PRE PROCEDURE NOTE THE PATIENT HAS A HISTORY OF CHRONIC PAIN AT THE LEFT SHOULDER AREA. I EVALUATE THE PATIENT AND REVIEWED THE CHART. THERE IS EVIDENCE OF BANDS OF TISSUE WITH RESTRICTION OF MOVEMENT AND PRESENCE OF TRIGGER POINT AT THE AFFECTED AREA. I WENT OVER THE RISKS, ALTERNATIVES, AND BENEFITS ASSOCIATED WITH THIS PROCEDURE. THE PATIENT WOULD LIKE TO PROCEED AND GIVE CONSENT TO PERFORMED THE PROCEDURE. THE PATIENT DENIES UNEXPLAINABLE WEIGHT LOSS, FEVER, CHILLS, OR NEW CHANGES IN URINARY OR BOWEL CONTROL DESCRIPTION OF PROCEDURE THE PATIENT WAS BROUGHT TO THE PROCEDURE ROOM AND PLACED IN THE SITTING POSITION. THE AREA WAS CLEANED WITH ALCOHOL. THE PROCEDURE WAS DONE USING ASEPTIC STERILE TECHNIQUE. I CHECKED LATERALITY AND THE LEVEL WHERE THE PROCEDURE WAS GOING TO BE PERFORMED WITH THE PATIENT AND THE SUPPORTING STAFF AT THE MOMENT OF THE TIME OUT IN THE PROCEDURE ROOM. USING A 25-GAUGE NEEDLE, TRIGGER POINTS WERE INJECTED AT THE LEFT SHOULDER AREA WITH A TOTAL OF 40 ML OF BUPIVACAINE 0.25% AND KENALOG 40 MG. THERE WAS NO EVIDENCE OF BLOOD, PARESTHESIA OR CEREBROSPINAL FLUID DURING THE PROCEDURE. THE PATIENT WAS SENT TO THE RECOVERY ROOM. THE PATIENT WAS MOVING THE EXTREMITIES AND DOING WELL. THERE WAS NO COMPLICATION DURING THE PROCEDURE POST PROCEDURE NOTE THE PATIENT WILL BE SEEN IN A FOLLOW UP IN THE NEXT FEW WEEKS. INSTRUCTIONS WERE GIVEN, QUESTIONS WERE ANSWERED, AND THE PATIENT EXPRESSED UNDERSTANDING AND AGREES WITH THE PLAN. I, LAURENCE SANDOVAL, DOCUMENTED THE ABOVE INFORMATION ACTING A SCRIBE FOR DR. HUTCHISON. I HAVE REVIEWED THE ABOVE DOCUMENT, WRITTEN BY LAURENCE MENJIVAR AND I VERIFY THAT IT IS ACCURATE PROCEDURE CODES 11117 INJ TRIGGER POINT / MUSC DISPOSITION & COMMUNICATION ELECTRONICALLY SIGNED BY BETHANY HUTCHISON MD ON 05/22/2017 AT 08:43 PM EST DISCLAIMER : THIS IS A VISIT SUMMARY EXTRACTED FROM THE [employer] CHART. IT IS NOT A COPY OF THE [employer] PROGRESS NOTE. NAFISA
== END ==
LOC: M PAIN 14:15
PROVIDERS: ATTEND Anesthesiology
DX: G89.29 Other chronic pain (principal); M25.512 Pain in left shoulder; M79.1 Myalgia; G82.20 Paraplegia, unspecified; I10 Essential (primary) hypertension; K21.9 Gastro-esophageal reflux disease without esophagitis; F32.9 Major depressive disorder, single episode, unspecified; F17.210 Nicotine dependence, cigarettes, uncomplicated; Z88.6 Allergy status to analgesic agent; Z91.040 Latex allergy status; Z91.018 Allergy to other foods; Z88.8 Allergy status to other drugs, medicaments and biological substances; Z79.899 Other long term (current) drug therapy; Z87.39 Personal history of other diseases of the musculoskeletal system and connective tissue
CPT/HCPCS: 20552; J3301

== ENCOUNTER → 2017-06-07 | Outpatient (CLI) | payer MEDICAID ==
[~2017-06-07] MED LIST changes: -BUPIVACAINE HCL 0.25% 10 ML VIAL As Ordered ONE; -BUPIVACAINE HCL 0.25% 30 ML VIAL As Ordered ONE; -TRIAMCINOLONE ACETONIDE SUSP 40 MG/ML VIAL (J3301) As Ordered ONE
--- NOTE | 2017-06-22 01:29 | ECWPNPC ---
PATIENT NAME: LUL ORTIZ : 1975 GENDER: MALE VISIT DATE: 06/07/2017 DISCHARGE DATE: 06/07/17 1641 VISIT LOCKED DATE TIME: PHYSICIAN: BETHANY HUTCHISON RESOURCE: BETHANY HUTCHISON REASON FOR APPOINTMENT 1. SHOULDER PAIN HISTORY OF PRESENT ILLNESS HISTORY OF PRESENT ILLNESS: PAIN THE PATIENT DESCRIBES THE PAIN... 41 YEAR OLD MALE PATIENT WITH HISTORY OF CHRONIC LEFT SHOULDER PAIN. PATIENT DESCRIBES THE PAIN ACHING, THROBBING, STABBING, SHOOTING WITH A PAIN SCORE OF 3 TO 10/10. PATIENT REPORTS THE PAIN STARTED ROUGHLY 6 MONTHS AGO WITH NO TRAUMA. PATIENT STATES THAT IT IS DIFFICULT TO MOVE HIS LEFT ARM DUE TO THE PAIN. PATIENT IS RECEIVING VICODIN FROM HIS PRIMARY CARE PHYSICIAN FOR THIS PAIN. TPI DONE SEVERAL WEEKS AGO OVER THE SHOULDER IS STILL WORKING WELL FOR HIM. PATIENT DENIES UNEXPLAINABLE WEIGHT LOSS, FEVER, CHILLS, NEW CHANGES ON HIS URINARY OR BOWEL CONTROL. FALL RISK SCREENING: SCREENING :NO FALLS IN THE PAST YEAR CURRENT MEDICATIONS TAKING LIDOCAINE 5 % OINTMENT 1 APPLICATION TO AFFECTED AREA NEEDED EXTERNALLY THREE TIMES A DAY TO PAINFUL AREAS OF BACK AND SHOULDERS USE SMALL AMOUNT, NOTES: 05/16 1900 TAKING FIORICET APAP 325-50-40 CAPSULE 1 CAPSULE NEEDED ORALLY AT ONSET OF MIGRAINE MDD=1, NOTES: 05/15 TAKING AMLODIPINE BESYLATE 10 MG TABLET ORALLY ONCE DAILY, NOTES: 05/17 800 TAKING LISINOPRIL 10 MG TABLET ORALLY ONCE DAILY, NOTES: 05/17 800 TAKING PROTONIX 40 MG TABLET DELAYED RELEASE ORALLY TWICE DAILY, NOTES: 05/17 800 TAKING SPIRIVA HANDIHALER 18 MCG CAPSULE INHALATION ONCE DAILY, NOTES: 05/17 800 TAKING FOLIC ACID 1 MG TABLET 1 TABLET ORALLY ONCE A DAY, NOTES: 05/17 800 TAKING VENTOLIN HFA 108 (90 BASE) MCG/ACT AEROSOL SOLUTION 2 PUFFS NEEDED INHALATION EVERY 4 HRS, NOTES: NONE RECENT TAKING TRAZODONE HCL 100 MG TABLET 1 TABLET AT BEDTIME ORALLY ONCE A DAY, NOTES: 05/16 2200 TAKING VOLTAREN 1 % GEL DIRECTED TRANSDERMAL AT LEFT SHOULDER THREE TIMES DAILY NEEDED, NOTES: HASN'T GOTTEN FILLED YET DUE TO PRE-APPROVAL MEDICATION LIST REVIEWED AND RECONCILED WITH THE PATIENT PAST MEDICAL HISTORY HYPERTENSION ASTHMA GERD KIDNEY INFECTIONS BACK PAIN ARTHRITIS NECK PAIN DEPRESSION SPINABIFIDA NEUROGENIC BLADDER ALLERGIES ASPIRIN EC: RASH: ALLERGY LATEX: RASH: ALLERGY BANANAS: NAUSEA/VOMITING: SIDE EFFECTS CIPRO: NAUSEA/VOMITING: SIDE EFFECTS REVIEW OF SYSTEMS REVIEWED BY: PROVIDER: , BETHANY HUTCHISON MD . CONSTITUTIONAL: ANY CHANGE IN YOUR MEDICAL CONDITION? NO . CHILLS NO . FEVER NO . INFECTION: DO YOU HAVE NEW INFECTIONS? YES PT REPORTS KIDNEY INFECTION TWO WEEKS AGO, STARTED ON ANTIBIOTICS. . DO YOU HAVE HISTORY OF MRSA? NO . MUSCULOSKELETAL: ANY NEW PATTERNS OF PAIN OR NUMBNESS? NO . GASTROENTEROLOGY: ANY NEW CHANGE IN BOWEL CONTROL? NO . GENITOURINARY: ANY NEW CHANGE IN BLADDER CONTROL? NO . IS THERE A CHANCE YOU COULD BE ? NO . HEMATOLOGY/LYMPH: DO YOU TAKE ANY BLOOD THINNERS? (FOR EXAMPLE- COUMADIN, PLAVIX, AGGRENOX, PLATEL, PRADAXA, OR XARELTO) NO . WHEN WAS YOUR LAST DOSE? DATE: TIME: . NEUROLOGY: HAVE YOU FALLEN IN THE PAST 6 MONTHS? NO . ANY NEW EXTREMITY NUMBNESS OR WEAKNESS? NO . CARDIOLOGY: DO YOU HAVE A PACEMAKER OR DEFIBRILLATOR? NO . RESPIRATORY: HAVE YOU BEEN SICK IN THE PAST WEEK? YES - KIDNEY INFECTION . FEVER NO . FLU LIKE SYMPTOMS? NO . COUGH NO . INTEGUMENTARY: DO YOU HAVE ANY RASHES OR OPEN SORES? NO . ALLERGIC/IMMUNO: ARE YOU ALLERGIC TO SHELLFISH OR IV DYE? NO . ANY NEW ALLERGIES? NO . PSYCHIATRIC: DO YOU HAVE THOUGHTS OF HURTING YOURSELF OR SOMEONE ELSE? NO . ARE YOU ABUSED, NEGLECTED, OR IN AN UNSAFE ENVIRONMENT? NO . ENDOCRINOLOGY: ARE YOU DIABETIC? NO . OTHER: DO YOU NEED ANY PRESCRIPTIONS? NO . IF YES, PLEASE LIST: ____ . ANY NEW PROBLEMS WITH YOUR MEDICATIONS? NO . WHEN DID YOU LAST DRINK? __ . WHAT DID YOU LAST DRINK? ____ . NAME OF PERSON DRIVING YOU HOME? ____ . DO YOU HAVE ANY OTHER QUESTIONS OR CONCERNS NO . VITAL SIGNS WT 111.0 LBS, HT 60 IN, BMI 21.68 INDEX, BP 128/82 MM HG, HR 77 /MIN, RR 16 /MIN, TEMP 97.9 F, OXYGEN SAT % 100%, SAFE IN ENV? (Y/N) YES, NA INITIALS TL 1538, REVIEWED BY: LAS. EXAMINATION : PATIENT IS ALERT O X 3 AND COOPERATIVE. TENDERNESS IN THE LEFT SHOULDER AREA. MRI OF THE LEFT SHOULDER AREA ON THE 02/18/17 SHOWS MINOR TENDINOSIS OF THE DISTAL SUPRASPINATUS TENDON. ASSESSMENTS MYALGIA - M79.1 (PRIMARY) TREATMENT MYALGIA CLINICAL NOTES: WE DISCUSSED SEVERAL ISSUES WITH MR. ORTIZ'S PAIN MANAGEMENT CASE. AT THIS TIME I WOULD LIKE THE PATIENT TO START VOLATREN GEL ON THE LEFT SHOULDER TO SEE IF IT WILL AID IN RELIEF FROM PAIN AND INFLAMMATION. PATIENT HAD A TRIGGER POINT INJECTION ON 05/17/17 WITH A PAIN LEVEL OF 3 TO 4/10 AFTER THE INJECTION. PATIENT WILL FOLLOW UP IN 6 WEEKS. . I, JORDIN SAMUEL, DOCUMENTED THE ABOVE INFORMATION ACTING A SCRIBE FOR DR. HUTCHISON. I HAVE REVIEWED THE ABOVE DOCUMENT, WRITTEN BY JORDIN GOODMANIBNavid AND I VERIFY THAT IT IS ACCURATE. PROCEDURE CODES FA211 ESTABILISHED PATIENT [facility] FACILITY CHARGE G8427 DOC MEDS VERIFIED W/PT OR RE G8930 PAIN ASSESS POS TOOL F/U PLAN DOC DISPOSITION & COMMUNICATION FOLLOW UP 6 WEEKS ELECTRONICALLY SIGNED BY BETHANY HUTCHISON MD ON 06/21/2017 AT 09:15 PM EST DISCLAIMER : THIS IS A VISIT SUMMARY EXTRACTED FROM THE [employer] CHART. IT IS NOT A COPY OF THE [employer] PROGRESS NOTE. MTDD
== END ==
LOC: M PAIN 15:00
PROVIDERS: ATTEND Anesthesiology
DX: G89.29 Other chronic pain (principal); M79.1 Myalgia; M25.512 Pain in left shoulder; I10 Essential (primary) hypertension; J45.909 Unspecified asthma, uncomplicated; K21.9 Gastro-esophageal reflux disease without esophagitis; F32.9 Major depressive disorder, single episode, unspecified; N31.9 Neuromuscular dysfunction of bladder, unspecified; Q05.9 Spina bifida, unspecified; Z79.899 Other long term (current) drug therapy; Z88.6 Allergy status to analgesic agent; Z91.040 Latex allergy status; Z91.018 Allergy to other foods; Z88.1 Allergy status to other antibiotic agents

== ENCOUNTER → 2017-10-21 | Outpatient (CLI) | payer MEDICAID | LOC: M PAIN 15:15 | DX: G89.29 Other chronic pain (principal); M79.1 Myalgia; G43.709 Chronic migraine without aura, not intractable, without status migrainosus; I10 Essential (primary) hypertension; J45.909 Unspecified asthma, uncomplicated; K21.9 Gastro-esophageal reflux disease without esophagitis; N31.9 Neuromuscular dysfunction of bladder, unspecified; F17.210 Nicotine dependence, cigarettes, uncomplicated; F32.9 Major depressive disorder, single episode, unspecified; Q05.9 Spina bifida, unspecified; Z98.2 Presence of cerebrospinal fluid drainage device; Z99.3 Dependence on wheelchair; Z93.3 Colostomy status; Z79.899 Other long term (current) drug therapy; Z88.6 Allergy status to analgesic agent; Z88.1 Allergy status to other antibiotic agents; Z91.040 Latex allergy status; Z91.018 Allergy to other foods | CPT/HCPCS: G0463 ==

== ENCOUNTER → 2017-11-25 | Outpatient (CLI) | payer MEDICAID | LOC: M PAIN 14:30 | DX: G89.29 Other chronic pain (principal); M79.1 Myalgia; M54.2 Cervicalgia; I10 Essential (primary) hypertension; J45.909 Unspecified asthma, uncomplicated; K21.9 Gastro-esophageal reflux disease without esophagitis; F32.9 Major depressive disorder, single episode, unspecified; N31.9 Neuromuscular dysfunction of bladder, unspecified; Q05.9 Spina bifida, unspecified; Z98.2 Presence of cerebrospinal fluid drainage device; F17.210 Nicotine dependence, cigarettes, uncomplicated; Z79.899 Other long term (current) drug therapy; Z88.6 Allergy status to analgesic agent; Z91.040 Latex allergy status; Z91.018 Allergy to other foods; Z88.1 Allergy status to other antibiotic agents | CPT/HCPCS: G0463 ==

== ENCOUNTER → 2018-11-27 | Outpatient (REF) | payer MEDICAID ==
[~2018-11-27] MED LIST changes: -/PANT40TA PO; +PROT1TAB2 PO; +TRAZ-164 PO; -TRAZ10TA PO
== END ==
LOC: M LAB REF 17:29
PROVIDERS: ATTEND Surgery
DX: T14.8XXA Other injury of unspecified body region, initial encounter (principal)

== ENCOUNTER → 2019-05-31 | Outpatient (REF) | payer MEDICARE, MEDICAID | LOC: M LAB REF 16:11 | PROVIDERS: ATTEND Surgery | DX: L89.614 Pressure ulcer of right heel, stage 4 (principal); M86.9 Osteomyelitis, unspecified ==

== ENCOUNTER → 2019-06-25 | Outpatient (REF) | payer MEDICARE, MEDICAID | LOC: M SFHCWAGY 17:49 | PROVIDERS: ATTEND Surgery | DX: L89.614 Pressure ulcer of right heel, stage 4 (principal) ==

== ENCOUNTER 2023-11-07 17:15 | Emergency (ER) | payer MEDICARE, MEDICAID ==
[~2023-11-07 17:15] MED LIST changes: +AMIT50TA PO; +D3-5CAP PO; +FOLI1TAB11 PO; +IPRA0.00 INH; +LISI5TAB11 PO; +PANT-23 PO
[2023-11-07] MEDS: NS 1,000 ML IV ONE (17:50)
[2023-11-07 18:30] LABS: BASO # 0.1 10^3/uL (0.0-0.2); BASO % 0.3 % (0.0-1.0); EOS # 0.1 10^3/uL (0.0-0.5); EOS % 0.4 % (0.0-3.0); HEMATOCRIT 43.6 % (42.0-52.0); HEMOGLOBIN 13.6 g/dl (13.5-17.5); LYMPH # 1.8 10^3/uL (1.5-5.0); LYMPH % 7.6 % (24.0-44.0); MEAN CORPUSCULAR HEMOGLOBIN 29.6 pg (27.0-33.0); MEAN CORPUSCULAR HGB CONC 31.2 g/dl (32.0-36.5); NEUTROPHILS # 20.5 10^3/uL (1.5-8.5); NEUTROPHILS % 86.9 % (36.0-66.0); PLATELET COUNT, AUTOMATED 413 10^3/uL (150-450); RED BLOOD COUNT 4.59 10^6/uL (4.30-6.10); WHITE BLOOD COUNT 23.6 10^3/uL (4.0-10.0)
[2023-11-07] MEDS: MORPHINE 2 MG/ML 1ML VIAL IV ONE ×2 (18:35→20:53)
[2023-11-07 19:51] LABS: ALBUMIN 2.8 G/DL (3.2-5.2); ALKALINE PHOSPHATASE 88 U/L (46-116); ALT/SGPT 12 U/L (7.0-40); AST/SGOT 12 U/L (<34); BILIRUBIN,TOTAL 0.2 MG/DL (0.3-1.2); BLOOD UREA NITROGEN 12 MG/DL (9-23); CALCIUM LEVEL 8.8 MG/DL (8.5-10.1); CARBON DIOXIDE LEVEL 25 MMOL/L (20-31); CHLORIDE LEVEL 108 MMOL/L (98-107); CREATININE FOR GFR 0.37 MG/DL (0.70-1.30); GLOMERULAR FILTRATION RATE > 60.0 (>60); GLUCOSE, FASTING 98 MG/DL (60-100); LIPASE 41 U/L (12-53); MAGNESIUM LEVEL 1.6 MG/DL (1.8-2.4); POTASSIUM SERUM 3.7 MMOL/L (3.5-5.1); SODIUM LEVEL 143 MMOL/L (136-145); TOTAL PROTEIN 6.6 G/DL (5.7-8.2)
[2023-11-07] MEDS: ceFAZolin SOD 2 GM in IV 1 EA IV ONE (20:38)
[2023-11-07] MEDS ORDERED: ONDANSETRON 4MG 2ML VIAL As Ordered ONE (20:48)
[2023-11-07] MEDS: ONDANSETRON 4MG 2ML VIAL IV ONE (20:58)
[2023-11-07] MEDS: NS 1,000 ML IV SCH (20:59)
[2023-11-08] MEDS: MORPHINE 4 MG/ML 1ML VIAL IV PRN (03:06)
[2023-11-08 07:15] VITALS: BP 103/70; TEMP 98.2; O2SAT 96
== END 2023-11-08 07:20 | disposition short-term general hospital (02) ==
LOC: M ED 17:15
DX: K94.09 Other complications of colostomy (principal); K50.00 Crohn's disease of small intestine without complications; K21.9 Gastro-esophageal reflux disease without esophagitis; I10 Essential (primary) hypertension; E78.5 Hyperlipidemia, unspecified; J45.909 Unspecified asthma, uncomplicated; Q05.9 Spina bifida, unspecified; Z79.899 Other long term (current) drug therapy; Z88.1 Allergy status to other antibiotic agents; Z88.8 Allergy status to other drugs, medicaments and biological substances; Z91.040 Latex allergy status
CPT/HCPCS: 51702; 74176; 80053; 81001; 83605; 83690; 83735; 85025; 87088; 87186; 96360; 96361; 96374; 96375; 96376; 99285; J0690; J2405

== ENCOUNTER → 2023-12-09 | Outpatient (CLI) | payer MEDICARE, MEDICAID | LOC: M IRPRO 15:53 | PROVIDERS: ATTEND Internal Medicine Infectious Disease | DX: Z93.3 Colostomy status (principal) ==

== ENCOUNTER → 2023-12-12 | Outpatient (REF) | payer MEDICARE, MEDICAID ==
[2023-12-12 13:06] LABS: BASO # 0.1 10^3/uL (0.0-0.2); BASO % 0.9 % (0.0-1.0); EOS # 0.9 10^3/uL (0.0-0.5); EOS % 7.2 % (0.0-3.0); HEMATOCRIT 34.2 % (42.0-52.0); HEMOGLOBIN 10.5 g/dl (13.5-17.5); LYMPH # 2.2 10^3/uL (1.5-5.0); LYMPH % 16.5 % (24.0-44.0); MEAN CORPUSCULAR HEMOGLOBIN 29.5 pg (27.0-33.0); MEAN CORPUSCULAR HGB CONC 30.7 g/dl (32.0-36.5); MEAN CORPUSCULAR VOLUME 96.1 fl (80.0-96.0); MONO # 0.9 10^3/uL (0.0-0.8); NEUTROPHILS # 8.7 10^3/uL (1.5-8.5); NEUTROPHILS % 66.9 % (36.0-66.0); PLATELET COUNT, AUTOMATED 420 10^3/uL (150-450); RED BLOOD COUNT 3.56 10^6/uL (4.30-6.10); WHITE BLOOD COUNT 13.1 10^3/uL (4.0-10.0)
[2023-12-12 13:13] LABS: ERYTHROCYTE SEDIMENTATION RATE 119 mm/hr (0-15)
[2023-12-12 13:31] LABS: ALBUMIN 2.8 G/DL (3.2-5.2); ALKALINE PHOSPHATASE 71 U/L (46-116); ALT/SGPT 17 U/L (7.0-40); AST/SGOT 17 U/L (<34); BILIRUBIN,TOTAL 0.2 MG/DL (0.3-1.2); BLOOD UREA NITROGEN 11 MG/DL (9-23); CALCIUM LEVEL 9.8 MG/DL (8.5-10.1); CARBON DIOXIDE LEVEL 29 MMOL/L (20-31); CHLORIDE LEVEL 104 MMOL/L (98-107); CREATININE FOR GFR 0.42 MG/DL (0.70-1.30); GLOMERULAR FILTRATION RATE > 60.0 (>60); GLUCOSE, FASTING 61 MG/DL (60-100); POTASSIUM SERUM 4.1 MMOL/L (3.5-5.1); SODIUM LEVEL 138 MMOL/L (136-145); TOTAL PROTEIN 6.9 G/DL (5.7-8.2)
== END ==
LOC: M LAB REF 12:36
PROVIDERS: ATTEND Internal Medicine Infectious Disease
DX: M86.18 Other acute osteomyelitis, other site (principal)

== ENCOUNTER → 2024-01-02 | Outpatient (REF) | payer MEDICARE, MEDICAID ==
[2024-01-02 13:17] LABS: BASO # 0.1 10^3/uL (0.0-0.2); BASO % 0.9 % (0.0-1.0); EOS # 1.1 10^3/uL (0.0-0.5); EOS % 9.2 % (0.0-3.0); HEMOGLOBIN 11.9 g/dl (13.5-17.5); LYMPH # 1.7 10^3/uL (1.5-5.0); LYMPH % 14.6 % (24.0-44.0); MEAN CORPUSCULAR HEMOGLOBIN 29.3 pg (27.0-33.0); MEAN CORPUSCULAR HGB CONC 30.5 g/dl (32.0-36.5); MEAN CORPUSCULAR VOLUME 96.1 fl (80.0-96.0); MONO # 0.8 10^3/uL (0.0-0.8); MONO % 6.7 % (2.0-8.0); NEUTROPHILS # 7.8 10^3/uL (1.5-8.5); NEUTROPHILS % 67.7 % (36.0-66.0); PLATELET COUNT, AUTOMATED 421 10^3/uL (150-450); RED BLOOD COUNT 4.06 10^6/uL (4.30-6.10); WHITE BLOOD COUNT 11.5 10^3/uL (4.0-10.0)
[2024-01-02 13:25] LABS: ERYTHROCYTE SEDIMENTATION RATE > 130 mm/hr (0-15)
[2024-01-02 13:44] LABS: ALBUMIN 3.3 G/DL (3.2-5.2); ALKALINE PHOSPHATASE 96 U/L (46-116); ALT/SGPT 28 U/L (7.0-40); AST/SGOT 24 U/L (<34); BILIRUBIN,TOTAL 0.3 MG/DL (0.3-1.2); BLOOD UREA NITROGEN 16 MG/DL (9-23); CALCIUM LEVEL 9.6 MG/DL (8.5-10.1); CARBON DIOXIDE LEVEL 27 MMOL/L (20-31); CHLORIDE LEVEL 104 MMOL/L (98-107); CREATININE FOR GFR 0.44 MG/DL (0.70-1.30); GLOMERULAR FILTRATION RATE > 60.0 (>60); GLUCOSE, FASTING 70 MG/DL (60-100); POTASSIUM SERUM 4.4 MMOL/L (3.5-5.1); SODIUM LEVEL 138 MMOL/L (136-145); TOTAL PROTEIN 7.4 G/DL (5.7-8.2)
== END ==
LOC: M LAB REF 12:46
PROVIDERS: ATTEND Internal Medicine Infectious Disease
DX: M86.18 Other acute osteomyelitis, other site (principal)

== ENCOUNTER 2024-02-10 23:25 | Inpatient (IN) | payer MEDICARE, MEDICAID ==
[~2024-02-10] VITALS: Ht 152.4 cm; Wt 37.5 kg
[2024-02-11] MEDS: NS 500 ML IV ONE (00:15)
[2024-02-11] MEDS: ONDANSETRON 4MG 2ML VIAL IV ONE (00:50)
[2024-02-11] MEDS: MORPHINE 2 MG/ML 1ML VIAL IV ONE ×2 (00:54→03:54)
[2024-02-11 01:17] LABS: BASO % 0.2 % (0.0-1.0); EOS # 0.2 10^3/uL (0.0-0.5); EOS % 1.6 % (0.0-3.0); HEMATOCRIT 34.4 % (42.0-52.0); HEMOGLOBIN 11.3 g/dl (13.5-17.5); LYMPH # 1.3 10^3/uL (1.5-5.0); LYMPH % 13.3 % (24.0-44.0); MEAN CORPUSCULAR HEMOGLOBIN 29.3 pg (27.0-33.0); MEAN CORPUSCULAR HGB CONC 32.8 g/dl (32.0-36.5); MEAN CORPUSCULAR VOLUME 89.1 fl (80.0-96.0); MONO % 10.4 % (2.0-8.0); NEUTROPHILS # 7.3 10^3/uL (1.5-8.5); NEUTROPHILS % 74.2 % (36.0-66.0); PLATELET COUNT, AUTOMATED 126 10^3/uL (150-450); RED BLOOD COUNT 3.86 10^6/uL (4.30-6.10); WHITE BLOOD COUNT 9.8 10^3/uL (4.0-10.0)
[2024-02-11 01:36] LABS: ALBUMIN 3.3 G/DL (3.2-5.2); ALKALINE PHOSPHATASE 121 U/L (46-116); ALT/SGPT 21 U/L (7.0-40); AST/SGOT 11 U/L (<34); BILIRUBIN,TOTAL 0.3 MG/DL (0.3-1.2); BLOOD UREA NITROGEN 7 MG/DL (9-23); CALCIUM LEVEL 9.1 MG/DL (8.5-10.1); CARBON DIOXIDE LEVEL 23 MMOL/L (20-31); CHLORIDE LEVEL 98 MMOL/L (98-107); CREATININE FOR GFR 0.39 MG/DL (0.70-1.30); GLOMERULAR FILTRATION RATE > 60.0 (>60); GLUCOSE, FASTING 99 MG/DL (60-100); MAGNESIUM LEVEL 1.7 MG/DL (1.8-2.4); POTASSIUM SERUM 3.9 MMOL/L (3.5-5.1); SODIUM LEVEL 132 MMOL/L (136-145)
[2024-02-11] MEDS ORDERED: LORA-1041 PO (01:54)
[2024-02-11] MEDS ORDERED: NITR100C2 PO (01:54)
[2024-02-11] MEDS ORDERED: GABA-1171 PO (01:54)
[2024-02-11] MEDS ORDERED: CEFD1CAP9 PO (01:54)
[2024-02-11] MEDS ORDERED: HOME MED LIST COMPLETE! XX SCH (01:55)
[2024-02-11] MEDS ORDERED: MOM 30ML SUSPENSION UDC PO PRN (02:55)
[2024-02-11] MEDS ORDERED: MAALOX 30 ML SUSP *UDC PO PRN (02:55)
[2024-02-11] MEDS: LR 1,000 ML IV SCH (03:15)
[2024-02-11] MEDS: IPRATROPIUM 0.5MG/ALBUTEROL 2.5MG INH SOL UD 3ML (DUONEB) INH SCH (04:12)
[2024-02-11 04:38] LABS: INR 1.11; PARTIAL THROMBOPLASTIN TIME 44.1 SECONDS (24.8-34.2)
[2024-02-11] MEDS: MORPHINE 2 MG/ML 1ML VIAL IV PRN (07:37)
[2024-02-11] MEDS: DOCUSATE SODIUM 100MG CAPSULE PO SCH (07:43)
[2024-02-11] MEDS: FOLIC ACID 1MG TAB PO SCH (07:57)
[2024-02-11] MEDS: CEFDINIR 300 MG CAP (OMNICEF) PO SCH (07:57)
[2024-02-11] MEDS: LORATADINE 10 MG TAB PO SCH (07:57)
[2024-02-11] MEDS: NITROFURANTOIN (MACROBID) 100 MG CAP PO SCH (07:57)
[2024-02-11] MEDS: HEPARIN SOD (PORCINE) 5000UNITS/ML 1ML VIAL/SYRINGE SC SCH (07:58)
[2024-02-11] MEDS: ACETAMINOPHEN TAB 650MG DOSE (2X325MG) PO PRN (07:58)
[2024-02-11] MEDS: GABAPENTIN 100 MG CAP PO SCH (07:59)
[2024-02-11] MEDS: lisinopriL 5 MG TAB PO SCH (08:00)
[2024-02-11 14:35] VITALS: BP 115/82; TEMP 97.9; O2SAT 94
[2024-02-11] MEDS: ONDANSETRON 4MG 2ML VIAL IV PRN (17:10)
[2024-02-11 19:52] VITALS: BP 100/55; TEMP 97.9; O2SAT 95
[2024-02-11] MEDS: GABAPENTIN 100 MG CAP NG SCH (20:51)
[2024-02-11 23:15] VITALS: O2SAT 82
[2024-02-11] MEDS: AMITRIPTYLINE 50 MG TAB NG SCH (23:15)
[2024-02-11 23:18] VITALS: O2SAT 86
[2024-02-11 23:20] VITALS: O2SAT 94
[2024-02-12 04:10] VITALS: BP 110/69; TEMP 98.1; O2SAT 94
[2024-02-12 07:06] LABS: MEAN CORPUSCULAR HEMOGLOBIN 29.1 pg (27.0-33.0); MEAN CORPUSCULAR VOLUME 93.9 fl (80.0-96.0); RED BLOOD COUNT 3.09 10^6/uL (4.30-6.10); WHITE BLOOD COUNT 9.5 10^3/uL (4.0-10.0)
[2024-02-12 07:37] LABS: PLATELET COUNT, AUTOMATED 88 10^3/uL (150-450)
[2024-02-12 07:40] LABS: PROCALCITONIN 0.17 ng/ml
[2024-02-12 07:43] LABS: ALBUMIN 2.6 G/DL (3.2-5.2); ALKALINE PHOSPHATASE 94 U/L (46-116); ALT/SGPT 16 U/L (7.0-40); AST/SGOT 13 U/L (<34); BILIRUBIN,TOTAL 0.2 MG/DL (0.3-1.2); BLOOD UREA NITROGEN 7 MG/DL (9-23); CALCIUM LEVEL 8.5 MG/DL (8.5-10.1); CARBON DIOXIDE LEVEL 21 MMOL/L (20-31); CHLORIDE LEVEL 105 MMOL/L (98-107); CREATININE FOR GFR 0.43 MG/DL (0.70-1.30); GLOMERULAR FILTRATION RATE > 60.0 (>60); GLUCOSE, FASTING 52 MG/DL (60-100); MAGNESIUM LEVEL 1.6 MG/DL (1.8-2.4); POTASSIUM SERUM 4.2 MMOL/L (3.5-5.1); SODIUM LEVEL 139 MMOL/L (136-145); TOTAL PROTEIN 5.5 G/DL (5.7-8.2)
[2024-02-12 12:00] VITALS: BP 134/82; TEMP 99; O2SAT 99
[2024-02-12] MEDS: cefTRIAXone SOD 1 GM in D5W MINI-BAG PLUS 50 ML IV SCH (12:18)
[2024-02-12] MEDS: MAG SULF 1GM/100ML (MAG RUN) 1 GM in IV 1 EA IV SCH (13:13)
[2024-02-12 19:33] VITALS: BP 129/80; TEMP 98.1; O2SAT 99
[2024-02-13 03:32] VITALS: BP 126/84; TEMP 98.6; O2SAT 95
[2024-02-13 11:48] LABS: BASO % 0.2 % (0.0-1.0); EOS # 0.3 10^3/uL (0.0-0.5); EOS % 2.5 % (0.0-3.0); HEMATOCRIT 31.3 % (42.0-52.0); HEMOGLOBIN 9.8 g/dl (13.5-17.5); LYMPH # 1.1 10^3/uL (1.5-5.0); LYMPH % 8.7 % (24.0-44.0); MEAN CORPUSCULAR HEMOGLOBIN 29.6 pg (27.0-33.0); MEAN CORPUSCULAR HGB CONC 31.3 g/dl (32.0-36.5); MEAN CORPUSCULAR VOLUME 94.6 fl (80.0-96.0); MONO # 1.5 10^3/uL (0.0-0.8); NEUTROPHILS # 9.2 10^3/uL (1.5-8.5); NEUTROPHILS % 75.9 % (36.0-66.0); PLATELET COUNT, AUTOMATED 108 10^3/uL (150-450); RED BLOOD COUNT 3.31 10^6/uL (4.30-6.10); WHITE BLOOD COUNT 12.1 10^3/uL (4.0-10.0)
[2024-02-13 12:00] VITALS: BP 129/80; TEMP 98.6; O2SAT 92
[2024-02-13 12:09] LABS: BLOOD UREA NITROGEN < 5 MG/DL (9-23); CALCIUM LEVEL 8.2 MG/DL (8.5-10.1); CARBON DIOXIDE LEVEL 20 MMOL/L (20-31); CHLORIDE LEVEL 103 MMOL/L (98-107); CREATININE FOR GFR 0.37 MG/DL (0.70-1.30); GLOMERULAR FILTRATION RATE > 60.0 (>60); GLUCOSE, FASTING 35 MG/DL (60-100); MAGNESIUM LEVEL 1.9 MG/DL (1.8-2.4); POTASSIUM SERUM 3.9 MMOL/L (3.5-5.1); SODIUM LEVEL 137 MMOL/L (136-145)
[2024-02-13] MEDS ORDERED: DEXTROSE 50% 50ML SYRINGE As Ordered ONE (12:13)
[2024-02-13] MEDS ORDERED: GLUCOSE 4 GM CHEW PO PRN (12:15)
[2024-02-13] MEDS ORDERED: GLUCAGON INJ 1MG VIAL SC PRN (12:15)
[2024-02-13] MEDS: DEXTROSE 50% 50ML SYRINGE IV PRN (12:21)
[2024-02-13] MEDS: D5W/0.9% SODIUM CHLORIDE 1,000 ML IV SCH (12:39)
[2024-02-13] MEDS: KETOROLAC 30 MG/ML 1ML VIAL IV ONE (14:29)
[2024-02-13] MEDS: PANTOPRAZOLE 40MG VIAL IV ONE (14:29)
[2024-02-13 19:19] LABS: BLOOD UREA NITROGEN < 5 MG/DL (9-23); CALCIUM LEVEL 8.4 MG/DL (8.5-10.1); CARBON DIOXIDE LEVEL 20 MMOL/L (20-31); CHLORIDE LEVEL 107 MMOL/L (98-107); CREATININE FOR GFR 0.36 MG/DL (0.70-1.30); GLOMERULAR FILTRATION RATE > 60.0 (>60); GLUCOSE, FASTING 100 MG/DL (60-100); POTASSIUM SERUM 3.6 MMOL/L (3.5-5.1); SODIUM LEVEL 137 MMOL/L (136-145)
[2024-02-13 19:50] VITALS: BP 162/90; TEMP 98.1; O2SAT 96
[2024-02-13] MEDS: MORPHINE 4 MG/ML 1ML VIAL IV PRN (20:59)
[2024-02-14 03:36] VITALS: BP 158/90; TEMP 98.1; O2SAT 95
[2024-02-14 09:13] LABS: BASO % 0.2 % (0.0-1.0); EOS # 0.4 10^3/uL (0.0-0.5); EOS % 4.1 % (0.0-3.0); HEMATOCRIT 28.2 % (42.0-52.0); HEMOGLOBIN 9.2 g/dl (13.5-17.5); LYMPH # 1.5 10^3/uL (1.5-5.0); LYMPH % 15.4 % (24.0-44.0); MEAN CORPUSCULAR HEMOGLOBIN 29.6 pg (27.0-33.0); MEAN CORPUSCULAR HGB CONC 32.6 g/dl (32.0-36.5); MEAN CORPUSCULAR VOLUME 90.7 fl (80.0-96.0); MONO # 1.3 10^3/uL (0.0-0.8); MONO % 13.7 % (2.0-8.0); NEUTROPHILS # 6.3 10^3/uL (1.5-8.5); NEUTROPHILS % 65.8 % (36.0-66.0); PLATELET COUNT, AUTOMATED 133 10^3/uL (150-450); RED BLOOD COUNT 3.11 10^6/uL (4.30-6.10); WHITE BLOOD COUNT 9.5 10^3/uL (4.0-10.0)
[2024-02-14] MEDS: PANTOPRAZOLE 40MG VIAL IV SCH (09:36)
[2024-02-14 09:47] LABS: BLOOD UREA NITROGEN < 5 MG/DL (9-23); CARBON DIOXIDE LEVEL 24 MMOL/L (20-31); CHLORIDE LEVEL 111 MMOL/L (98-107); CREATININE FOR GFR 0.33 MG/DL (0.70-1.30); GLOMERULAR FILTRATION RATE > 60.0 (>60); GLUCOSE, FASTING 124 MG/DL (60-100); MAGNESIUM LEVEL 1.6 MG/DL (1.8-2.4); POTASSIUM SERUM 3.4 MMOL/L (3.5-5.1); SODIUM LEVEL 142 MMOL/L (136-145)
[2024-02-14] MEDS ORDERED: E-Z-PAQUE 96% w/w SUSP 176GM BTL As Ordered ONE (11:03)
[2024-02-14 12:34] VITALS: BP 156/90; TEMP 98.1; O2SAT 97
[2024-02-14] MEDS: KCL 40MEQ IN D5/0.45NS 1000ML 1,000 ML IV SCH (13:18)
[2024-02-14] MEDS: MAG SULF 1GM/100ML (MAG RUN) 1 GM in IV 1 EA IV SCH (13:18)
[2024-02-14 13:21] LABS: FREE T4 1.35 NG/DL (0.89-1.76)
[2024-02-14 13:22] LABS: THYROID STIMULATING HORMONE 1.935 uIU/ML (0.55-4.78)
[2024-02-14 20:00] VITALS: BP 119/71; TEMP 99; O2SAT 97
[2024-02-15 04:00] VITALS: BP 112/70; TEMP 98.2; O2SAT 95
[2024-02-15 06:41] LABS: BASO % 0.3 % (0.0-1.0); EOS # 0.4 10^3/uL (0.0-0.5); EOS % 4.7 % (0.0-3.0); HEMATOCRIT 29.8 % (42.0-52.0); HEMOGLOBIN 9.1 g/dl (13.5-17.5); LYMPH # 1.5 10^3/uL (1.5-5.0); MEAN CORPUSCULAR HEMOGLOBIN 28.7 pg (27.0-33.0); MEAN CORPUSCULAR HGB CONC 30.5 g/dl (32.0-36.5); MONO # 1.3 10^3/uL (0.0-0.8); MONO % 14.4 % (2.0-8.0); NEUTROPHILS # 5.6 10^3/uL (1.5-8.5); NEUTROPHILS % 62.9 % (36.0-66.0); PLATELET COUNT, AUTOMATED 149 10^3/uL (150-450); RED BLOOD COUNT 3.17 10^6/uL (4.30-6.10); WHITE BLOOD COUNT 8.9 10^3/uL (4.0-10.0)
[2024-02-15 07:08] LABS: BLOOD UREA NITROGEN < 5 MG/DL (9-23); CALCIUM LEVEL 8.5 MG/DL (8.5-10.1); CARBON DIOXIDE LEVEL 23 MMOL/L (20-31); CHLORIDE LEVEL 109 MMOL/L (98-107); CREATININE FOR GFR 0.34 MG/DL (0.70-1.30); GLOMERULAR FILTRATION RATE > 60.0 (>60); GLUCOSE, FASTING 118 MG/DL (60-100); POTASSIUM SERUM 4.7 MMOL/L (3.5-5.1); SODIUM LEVEL 140 MMOL/L (136-145)
[2024-02-15 12:17] VITALS: BP 111/71; TEMP 98.8; O2SAT 92
[2024-02-15 13:38] LABS: PHOSPHORUS LEVEL 2.3 MG/DL (2.5-4.9)
[2024-02-15] MEDS: IPRATROPIUM 0.5MG/ALBUTEROL 2.5MG INH SOL UD 3ML (DUONEB) NEB SCH (15:34)
[2024-02-15] MEDS: FAT EMULSION IV 250 ML IV ONE (17:27)
[2024-02-15] MEDS: AMINO AC/ELECTROLYTE/DEX/CALC 1,000 ML IV SCH (17:27)
[2024-02-15] MEDS: GABAPENTIN 100 MG CAP PO SCH (21:13)
[2024-02-15] MEDS: AMITRIPTYLINE 50 MG TAB PO SCH (21:13)
[2024-02-15 22:18] VITALS: BP 132/91; TEMP 98.6; O2SAT 91
[2024-02-16 05:00] VITALS: BP 129/89; TEMP 98.1; O2SAT 95
[2024-02-16 07:06] LABS: BLOOD UREA NITROGEN < 5 MG/DL (9-23); CALCIUM LEVEL 9.2 MG/DL (8.5-10.1); CARBON DIOXIDE LEVEL 24 MMOL/L (20-31); CHLORIDE LEVEL 104 MMOL/L (98-107); CREATININE FOR GFR 0.42 MG/DL (0.70-1.30); GLOMERULAR FILTRATION RATE > 60.0 (>60); GLUCOSE, FASTING 132 MG/DL (60-100); MAGNESIUM LEVEL 1.8 MG/DL (1.8-2.4); PHOSPHORUS LEVEL 4.4 MG/DL (2.5-4.9); POTASSIUM SERUM 4.5 MMOL/L (3.5-5.1); SODIUM LEVEL 136 MMOL/L (136-145)
[2024-02-16 13:04] VITALS: BP 143/96; TEMP 97.9; O2SAT 90
[2024-02-16] MEDS: MAG SULF 1GM/100ML (MAG RUN) 1 GM in IV 1 EA IV SCH (13:40)
[2024-02-16] MEDS: FAT EMULSION IV 250 ML IV ONE (18:52)
[2024-02-16 19:49] VITALS: TEMP 98.1; O2SAT 96
[2024-02-17 04:06] VITALS: BP 144/90; TEMP 98.2; O2SAT 98
[2024-02-17 05:49] LABS: BASO % 0.3 % (0.0-1.0); EOS # 0.4 10^3/uL (0.0-0.5); EOS % 3.2 % (0.0-3.0); HEMATOCRIT 29.3 % (42.0-52.0); HEMOGLOBIN 9.4 g/dl (13.5-17.5); LYMPH # 2.3 10^3/uL (1.5-5.0); LYMPH % 19.4 % (24.0-44.0); MEAN CORPUSCULAR HEMOGLOBIN 29.5 pg (27.0-33.0); MEAN CORPUSCULAR HGB CONC 32.1 g/dl (32.0-36.5); MEAN CORPUSCULAR VOLUME 91.8 fl (80.0-96.0); MONO # 1.1 10^3/uL (0.0-0.8); MONO % 9.2 % (2.0-8.0); NEUTROPHILS # 7.7 10^3/uL (1.5-8.5); NEUTROPHILS % 64.5 % (36.0-66.0); PLATELET COUNT, AUTOMATED 354 10^3/uL (150-450); RED BLOOD COUNT 3.19 10^6/uL (4.30-6.10); WHITE BLOOD COUNT 11.9 10^3/uL (4.0-10.0)
[2024-02-17 06:18] LABS: BLOOD UREA NITROGEN < 5 MG/DL (9-23); CALCIUM LEVEL 8.1 MG/DL (8.5-10.1); CARBON DIOXIDE LEVEL 28 MMOL/L (20-31); CHLORIDE LEVEL 107 MMOL/L (98-107); CREATININE FOR GFR 0.39 MG/DL (0.70-1.30); GLOMERULAR FILTRATION RATE > 60.0 (>60); GLUCOSE, FASTING 113 MG/DL (60-100); PHOSPHORUS LEVEL 4.4 MG/DL (2.5-4.9); POTASSIUM SERUM 4.5 MMOL/L (3.5-5.1); SODIUM LEVEL 139 MMOL/L (136-145)
[2024-02-17 12:37] VITALS: BP 134/89; TEMP 98.1; O2SAT 98
[2024-02-17] MEDS: FAT EMULSION IV 250 ML IV ONE (17:35)
[2024-02-17 20:00] VITALS: BP 142/84; TEMP 98.8; O2SAT 90
[2024-02-18 04:00] VITALS: BP 134/83; TEMP 98.2; O2SAT 97
[2024-02-18 10:38] LABS: ALBUMIN 2.6 G/DL (3.2-5.2); ALKALINE PHOSPHATASE 91 U/L (46-116); ALT/SGPT 13 U/L (7.0-40); AST/SGOT 10 U/L (<34); BILIRUBIN,TOTAL < 0.2 MG/DL (0.3-1.2); BLOOD UREA NITROGEN 7 MG/DL (9-23); CALCIUM LEVEL 8.9 MG/DL (8.5-10.1); CARBON DIOXIDE LEVEL 30 MMOL/L (20-31); CHLORIDE LEVEL 102 MMOL/L (98-107); CREATININE FOR GFR 0.39 MG/DL (0.70-1.30); GLOMERULAR FILTRATION RATE > 60.0 (>60); GLUCOSE, FASTING 119 MG/DL (60-100); MAGNESIUM LEVEL 1.9 MG/DL (1.8-2.4); PHOSPHORUS LEVEL 5.2 MG/DL (2.5-4.9); POTASSIUM SERUM 4.4 MMOL/L (3.5-5.1); SODIUM LEVEL 137 MMOL/L (136-145); TOTAL PROTEIN 6.4 G/DL (5.7-8.2)
[2024-02-18 12:34] VITALS: BP 125/82; TEMP 98.2; O2SAT 92
[2024-02-18] MEDS: FAT EMULSION IV 250 ML IV ONE (18:29)
[2024-02-18 20:30] VITALS: O2SAT 92
[2024-02-18 20:33] VITALS: BP 147/92; TEMP 99; O2SAT 95
[2024-02-18] MEDS: METOCLOPRAMIDE INJ 10MG/2ML VIAL IV SCH (20:46)
[2024-02-19 03:51] VITALS: BP 133/85; TEMP 97.9; O2SAT 94
[2024-02-19 06:22] VITALS: BP 133/85; TEMP 97.9; O2SAT 96
[2024-02-19 07:01] LABS: BASO # 0.1 10^3/uL (0.0-0.2); BASO % 0.6 % (0.0-1.0); EOS # 0.4 10^3/uL (0.0-0.5); EOS % 2.7 % (0.0-3.0); HEMATOCRIT 32.6 % (42.0-52.0); HEMOGLOBIN 10.1 g/dl (13.5-17.5); LYMPH # 1.7 10^3/uL (1.5-5.0); LYMPH % 11.6 % (24.0-44.0); MEAN CORPUSCULAR HEMOGLOBIN 28.9 pg (27.0-33.0); MEAN CORPUSCULAR VOLUME 93.1 fl (80.0-96.0); MONO # 1.1 10^3/uL (0.0-0.8); MONO % 7.9 % (2.0-8.0); NEUTROPHILS # 10.3 10^3/uL (1.5-8.5); NEUTROPHILS % 72.8 % (36.0-66.0); PLATELET COUNT, AUTOMATED 535 10^3/uL (150-450); WHITE BLOOD COUNT 14.2 10^3/uL (4.0-10.0)
[2024-02-19 07:21] LABS: ALBUMIN 2.6 G/DL (3.2-5.2); ALKALINE PHOSPHATASE 91 U/L (46-116); ALT/SGPT 13 U/L (7.0-40); AST/SGOT 10 U/L (<34); BILIRUBIN,TOTAL < 0.2 MG/DL (0.3-1.2); BLOOD UREA NITROGEN 8 MG/DL (9-23); CALCIUM LEVEL 9.1 MG/DL (8.5-10.1); CARBON DIOXIDE LEVEL 29 MMOL/L (20-31); CHLORIDE LEVEL 102 MMOL/L (98-107); CREATININE FOR GFR 0.41 MG/DL (0.70-1.30); GLOMERULAR FILTRATION RATE > 60.0 (>60); GLUCOSE, FASTING 106 MG/DL (60-100); MAGNESIUM LEVEL 2.1 MG/DL (1.8-2.4); PHOSPHORUS LEVEL 5.6 MG/DL (2.5-4.9); POTASSIUM SERUM 4.9 MMOL/L (3.5-5.1); SODIUM LEVEL 137 MMOL/L (136-145); TOTAL PROTEIN 6.6 G/DL (5.7-8.2)
[2024-02-19 12:02] VITALS: BP 130/82; TEMP 98.6; O2SAT 97
[2024-02-19] MEDS: LR 1,000 ML IV SCH (17:11)
[2024-02-19] MEDS: FAT EMULSION IV 250 ML IV ONE (18:00)
[2024-02-19 20:27] VITALS: BP 141/91; TEMP 98.8; O2SAT 96
[2024-02-19 20:30] VITALS: O2SAT 96
[2024-02-20] MEDS: MORPHINE 2 MG/ML 1ML VIAL IV PRN (04:13)
[2024-02-20 04:28] VITALS: BP 105/64; TEMP 98.1; O2SAT 95
[2024-02-20 06:26] LABS: BLOOD UREA NITROGEN 10 MG/DL (9-23); CALCIUM LEVEL 9.2 MG/DL (8.5-10.1); CARBON DIOXIDE LEVEL 29 MMOL/L (20-31); CHLORIDE LEVEL 104 MMOL/L (98-107); CREATININE FOR GFR 0.44 MG/DL (0.70-1.30); GLOMERULAR FILTRATION RATE > 60.0 (>60); GLUCOSE, FASTING 102 MG/DL (60-100); PHOSPHORUS LEVEL 5.2 MG/DL (2.5-4.9); POTASSIUM SERUM 5.1 MMOL/L (3.5-5.1); SODIUM LEVEL 137 MMOL/L (136-145)
[2024-02-20 06:32] LABS: BASO # 0.1 10^3/uL (0.0-0.2); BASO % 0.9 % (0.0-1.0); EOS # 0.5 10^3/uL (0.0-0.5); EOS % 4.2 % (0.0-3.0); HEMATOCRIT 32.4 % (42.0-52.0); LYMPH # 2.5 10^3/uL (1.5-5.0); LYMPH % 20.8 % (24.0-44.0); MEAN CORPUSCULAR HEMOGLOBIN 28.8 pg (27.0-33.0); MEAN CORPUSCULAR HGB CONC 30.9 g/dl (32.0-36.5); MEAN CORPUSCULAR VOLUME 93.4 fl (80.0-96.0); MONO % 8.3 % (2.0-8.0); NEUTROPHILS # 7.2 10^3/uL (1.5-8.5); NEUTROPHILS % 60.9 % (36.0-66.0); PLATELET COUNT, AUTOMATED 591 10^3/uL (150-450); RED BLOOD COUNT 3.47 10^6/uL (4.30-6.10); WHITE BLOOD COUNT 11.8 10^3/uL (4.0-10.0)
[2024-02-20] MEDS: VANICREAM MOISTURIZING SKIN CREAM 113GM TUBE TOP SCH (09:00)
[2024-02-20 12:00] VITALS: BP 109/81; TEMP 97.9; O2SAT 93
[2024-02-20] MEDS: LR 1,000 ML IV SCH (17:01)
[2024-02-20] MEDS ORDERED: FAT EMULSION IV 250 ML IV ONE (18:00)
[2024-02-20 20:11] VITALS: BP 125/85; TEMP 98.8
[2024-02-21 01:27] VITALS: O2SAT 93
[2024-02-21 04:08] VITALS: BP 105/75; TEMP 98.2; O2SAT 93
[2024-02-21 06:14] LABS: BASO # 0.1 10^3/uL (0.0-0.2); EOS # 0.6 10^3/uL (0.0-0.5); EOS % 4.5 % (0.0-3.0); HEMATOCRIT 33.5 % (42.0-52.0); HEMOGLOBIN 10.4 g/dl (13.5-17.5); LYMPH # 2.4 10^3/uL (1.5-5.0); LYMPH % 19.1 % (24.0-44.0); MEAN CORPUSCULAR HEMOGLOBIN 28.7 pg (27.0-33.0); MEAN CORPUSCULAR VOLUME 92.3 fl (80.0-96.0); MONO % 7.7 % (2.0-8.0); NEUTROPHILS # 7.8 10^3/uL (1.5-8.5); NEUTROPHILS % 63.5 % (36.0-66.0); RED BLOOD COUNT 3.63 10^6/uL (4.30-6.10); WHITE BLOOD COUNT 12.3 10^3/uL (4.0-10.0)
[2024-02-21 06:29] LABS: BLOOD UREA NITROGEN 10 MG/DL (9-23); CALCIUM LEVEL 9.5 MG/DL (8.5-10.1); CARBON DIOXIDE LEVEL 27 MMOL/L (20-31); CHLORIDE LEVEL 103 MMOL/L (98-107); CREATININE FOR GFR 0.49 MG/DL (0.70-1.30); GLOMERULAR FILTRATION RATE > 60.0 (>60); GLUCOSE, FASTING 91 MG/DL (60-100); MAGNESIUM LEVEL 1.9 MG/DL (1.8-2.4); PHOSPHORUS LEVEL 4.9 MG/DL (2.5-4.9); POTASSIUM SERUM 4.9 MMOL/L (3.5-5.1); SODIUM LEVEL 138 MMOL/L (136-145)
[2024-02-21 06:33] LABS: PLATELET COUNT, AUTOMATED 694 10^3/uL (150-450)
[2024-02-21 12:00] VITALS: BP 111/77; TEMP 98.1; O2SAT 97
[2024-02-21 20:37] VITALS: BP 102/62; TEMP 98.6; O2SAT 95
[2024-02-22 04:05] VITALS: BP 101/62; TEMP 97.9; O2SAT 92
[2024-02-22 06:06] LABS: BASO # 0.1 10^3/uL (0.0-0.2); BASO % 0.8 % (0.0-1.0); EOS # 0.4 10^3/uL (0.0-0.5); EOS % 3.5 % (0.0-3.0); HEMOGLOBIN 10.2 g/dl (13.5-17.5); LYMPH # 2.7 10^3/uL (1.5-5.0); LYMPH % 22.3 % (24.0-44.0); MEAN CORPUSCULAR HEMOGLOBIN 28.9 pg (27.0-33.0); MEAN CORPUSCULAR HGB CONC 31.9 g/dl (32.0-36.5); MEAN CORPUSCULAR VOLUME 90.7 fl (80.0-96.0); MONO # 1.2 10^3/uL (0.0-0.8); MONO % 10.3 % (2.0-8.0); NEUTROPHILS # 7.1 10^3/uL (1.5-8.5); PLATELET COUNT, AUTOMATED 642 10^3/uL (150-450); RED BLOOD COUNT 3.53 10^6/uL (4.30-6.10)
[2024-02-22 06:57] LABS: BLOOD UREA NITROGEN 10 MG/DL (9-23); CARBON DIOXIDE LEVEL 26 MMOL/L (20-31); CHLORIDE LEVEL 100 MMOL/L (98-107); CREATININE FOR GFR 0.53 MG/DL (0.70-1.30); GLOMERULAR FILTRATION RATE > 60.0 (>60); GLUCOSE, FASTING 112 MG/DL (60-100); MAGNESIUM LEVEL 1.8 MG/DL (1.8-2.4); PHOSPHORUS LEVEL 6.3 MG/DL (2.5-4.9); POTASSIUM SERUM 4.7 MMOL/L (3.5-5.1); SODIUM LEVEL 133 MMOL/L (136-145)
[2024-02-22 09:01] VITALS: BP 105/64
[2024-02-22] MEDS ORDERED: PERCOCET 5MG/325MG TAB PO PRN (11:15)
[2024-02-22] MEDS: NS 500 ML IV ONE (11:43)
[2024-02-22 12:00] VITALS: BP 104/81; TEMP 98.1; O2SAT 95
== END 2024-02-22 16:50 | disposition home health service (06) | DRG 393 ==
LOC: M ED 23:25 → EDBD 23:25 → M ED INP 02-11 02:52 → M MS5PR 02-11 14:35
PROVIDERS: ADMIT Family Medicine; ATTEND Student in an Organized Health Care Education/Training Program
DX: K43.3 Parastomal hernia with obstruction, without gangrene (principal); L89.153 Pressure ulcer of sacral region, stage 3; G82.20 Paraplegia, unspecified; I10 Essential (primary) hypertension; E78.5 Hyperlipidemia, unspecified; J45.909 Unspecified asthma, uncomplicated; Z91.040 Latex allergy status; K21.9 Gastro-esophageal reflux disease without esophagitis; N31.9 Neuromuscular dysfunction of bladder, unspecified; E83.39 Other disorders of phosphorus metabolism; E16.2 Hypoglycemia, unspecified; Q05.9 Spina bifida, unspecified; E83.42 Hypomagnesemia; F41.9 Anxiety disorder, unspecified; F32.A Depression, unspecified; F41.0 Panic disorder [episodic paroxysmal anxiety]; R00.0 Tachycardia, unspecified; G47.00 Insomnia, unspecified; Z86.718 Personal history of other venous thrombosis and embolism; Z86.14 Personal history of Methicillin resistant Staphylococcus aureus infection; Z79.899 Other long term (current) drug therapy; Z88.6 Allergy status to analgesic agent; Z88.1 Allergy status to other antibiotic agents; Z98.2 Presence of cerebrospinal fluid drainage device

== ENCOUNTER 2024-02-24 17:04 | Observation (INO) | payer MEDICARE, MEDICAID ==
[~2024-02-24] VITALS: Ht 152.4 cm; Wt 37.5 kg
[~2024-02-24 17:04] MED LIST changes: +CEFD1CAP9 PO; +GABA-1171 PO; +LORA-1041 PO; +NITR100C2 PO
[2024-02-24] MEDS: MORPHINE 4 MG/ML 1ML VIAL IV ONE ×2 (18:15→23:06)
[2024-02-24] MEDS: NS 1,000 ML IV SCH (18:15)
[2024-02-24 19:01] LABS: BASO # 0.1 10^3/uL (0.0-0.2); BASO % 0.7 % (0.0-1.0); EOS # 0.3 10^3/uL (0.0-0.5); HEMOGLOBIN 12.3 g/dl (13.5-17.5); LYMPH # 2.2 10^3/uL (1.5-5.0); LYMPH % 14.5 % (24.0-44.0); MEAN CORPUSCULAR HEMOGLOBIN 28.6 pg (27.0-33.0); MEAN CORPUSCULAR HGB CONC 31.5 g/dl (32.0-36.5); MEAN CORPUSCULAR VOLUME 90.7 fl (80.0-96.0); MONO # 0.9 10^3/uL (0.0-0.8); MONO % 5.9 % (2.0-8.0); NEUTROPHILS # 11.5 10^3/uL (1.5-8.5); NEUTROPHILS % 75.1 % (36.0-66.0); PLATELET COUNT, AUTOMATED 762 10^3/uL (150-450); WHITE BLOOD COUNT 15.3 10^3/uL (4.0-10.0)
[2024-02-24 19:17] LABS: ALBUMIN 3.3 G/DL (3.2-5.2); ALKALINE PHOSPHATASE 134 U/L (46-116); ALT/SGPT 16 U/L (7.0-40); AST/SGOT 14 U/L (<34); BILIRUBIN,DIRECT < 0.1 MG/DL (<0.4); BILIRUBIN,TOTAL < 0.2 MG/DL (0.3-1.2); BLOOD UREA NITROGEN 14 MG/DL (9-23); CALCIUM LEVEL 9.9 MG/DL (8.5-10.1); CARBON DIOXIDE LEVEL 22 MMOL/L (20-31); CHLORIDE LEVEL 105 MMOL/L (98-107); CREATININE FOR GFR 0.46 MG/DL (0.70-1.30); GLOMERULAR FILTRATION RATE > 60.0 (>60); GLUCOSE, FASTING 106 MG/DL (60-100); POTASSIUM SERUM 5.1 MMOL/L (3.5-5.1); SODIUM LEVEL 134 MMOL/L (136-145); TOTAL PROTEIN 8.2 G/DL (5.7-8.2)
[2024-02-24] MEDS ORDERED: MOM 30ML SUSPENSION UDC PO PRN (23:05)
[2024-02-24] MEDS ORDERED: ACETAMINOPHEN 500 MG TAB PO PRN (23:05)
[2024-02-24] MEDS ORDERED: MAALOX 30 ML SUSP *UDC PO PRN (23:05)
[2024-02-24] MEDS ORDERED: PANT40TA29 PO (23:11)
[2024-02-24] MEDS ORDERED: VITA1CAP25 PO (23:11)
[2024-02-24] MEDS ORDERED: VENTAER INH (23:11)
[2024-02-24] MEDS ORDERED: HOME MED LIST COMPLETE! XX SCH (23:15)
[2024-02-25] MEDS: KETOROLAC TROMETHAMINE 10 MG TAB PO SCH (06:00)
[2024-02-25] MEDS: ONDANSETRON 4MG ORAL DISINTEGRATING TAB PO PRN (06:10)
[2024-02-25 07:25] LABS: HEMATOCRIT 35.8 % (42.0-52.0); HEMOGLOBIN 11.2 g/dl (13.5-17.5); MEAN CORPUSCULAR HEMOGLOBIN 28.9 pg (27.0-33.0); MEAN CORPUSCULAR HGB CONC 31.3 g/dl (32.0-36.5); MEAN CORPUSCULAR VOLUME 92.5 fl (80.0-96.0); RED BLOOD COUNT 3.87 10^6/uL (4.30-6.10); WHITE BLOOD COUNT 12.7 10^3/uL (4.0-10.0)
[2024-02-25 07:35] LABS: PLATELET COUNT, AUTOMATED 637 10^3/uL (150-450)
[2024-02-25] MEDS: DOCUSATE SODIUM 100MG CAPSULE PO SCH (07:39)
[2024-02-25 07:42] LABS: ALBUMIN 2.9 G/DL (3.2-5.2); ALKALINE PHOSPHATASE 118 U/L (46-116); ALT/SGPT 11 U/L (7.0-40); AST/SGOT 9 U/L (<34); BILIRUBIN,TOTAL < 0.2 MG/DL (0.3-1.2); BLOOD UREA NITROGEN 17 MG/DL (9-23); CALCIUM LEVEL 9.4 MG/DL (8.5-10.1); CARBON DIOXIDE LEVEL 21 MMOL/L (20-31); CHLORIDE LEVEL 109 MMOL/L (98-107); CREATININE FOR GFR 0.55 MG/DL (0.70-1.30); GLOMERULAR FILTRATION RATE > 60.0 (>60); GLUCOSE, FASTING 96 MG/DL (60-100); MAGNESIUM LEVEL 1.8 MG/DL (1.8-2.4); POTASSIUM SERUM 4.4 MMOL/L (3.5-5.1); SODIUM LEVEL 138 MMOL/L (136-145); TOTAL PROTEIN 7.1 G/DL (5.7-8.2)
[2024-02-25] MEDS: ENOXAPARIN 30MG/0.3ML SYRINGE (J1650 PER 10MG) SC SCH (08:35)
[2024-02-25] MEDS: ACETAMINOPHEN TAB 650MG DOSE (2X325MG) PO PRN (09:16)
[2024-02-25 14:25] VITALS: BP 111/77; TEMP 97.5; O2SAT 95
[2024-02-25] MEDS: PERCOCET 5MG/325MG TAB PO PRN (15:45)
[2024-02-25] MEDS: MORPHINE 2 MG/ML 1ML VIAL IV PRN (18:11)
[2024-02-25 20:00] VITALS: BP 131/84; TEMP 97.9; O2SAT 97
[2024-02-26 04:10] VITALS: BP 105/76; TEMP 97.7; O2SAT 95
[2024-02-26 06:49] LABS: BLOOD UREA NITROGEN 8 MG/DL (9-23); CALCIUM LEVEL 8.6 MG/DL (8.5-10.1); CARBON DIOXIDE LEVEL 18 MMOL/L (20-31); CHLORIDE LEVEL 112 MMOL/L (98-107); GLOMERULAR FILTRATION RATE > 60.0 (>60); GLUCOSE, FASTING 92 MG/DL (60-100); POTASSIUM SERUM 4.5 MMOL/L (3.5-5.1); SODIUM LEVEL 138 MMOL/L (136-145)
[2024-02-26 07:48] LABS: HEMATOCRIT 30.8 % (42.0-52.0); HEMOGLOBIN 9.7 g/dl (13.5-17.5); MEAN CORPUSCULAR HGB CONC 31.5 g/dl (32.0-36.5); MEAN CORPUSCULAR VOLUME 92.2 fl (80.0-96.0); PLATELET COUNT, AUTOMATED 576 10^3/uL (150-450); RED BLOOD COUNT 3.34 10^6/uL (4.30-6.10)
[2024-02-26 12:00] VITALS: BP 175/112; TEMP 97.9; O2SAT 96
[2024-02-26 13:47] VITALS: BP 172/100
[2024-02-26 15:35] VITALS: BP 160/108
[2024-02-26 18:07] VITALS: BP 172/98
[2024-02-26 19:30] VITALS: BP 172/98; TEMP 97.9; O2SAT 95
[2024-02-26] MEDS: ACETAMINOPHEN 500 MG TAB PO PRN (20:07)
[2024-02-26] MEDS: lisinopriL 5 MG TAB PO SCH (23:21)
[2024-02-27] VITALS (7 sets, daily range): BP systolic 148–168; BP diastolic 96–106; TEMP 97.4–97.9; O2SAT 95–98
[2024-02-27] MEDS: lisinopriL 5 MG TAB PO ONE (06:00)
[2024-02-27 06:06] LABS: HEMATOCRIT 30.1 % (42.0-52.0); HEMOGLOBIN 9.3 g/dl (13.5-17.5); MEAN CORPUSCULAR HEMOGLOBIN 28.4 pg (27.0-33.0); MEAN CORPUSCULAR HGB CONC 30.9 g/dl (32.0-36.5); MEAN CORPUSCULAR VOLUME 91.8 fl (80.0-96.0); PLATELET COUNT, AUTOMATED 545 10^3/uL (150-450); RED BLOOD COUNT 3.28 10^6/uL (4.30-6.10); WHITE BLOOD COUNT 7.7 10^3/uL (4.0-10.0)
[2024-02-27 06:33] LABS: BLOOD UREA NITROGEN < 5 MG/DL (9-23); CALCIUM LEVEL 8.7 MG/DL (8.5-10.1); CARBON DIOXIDE LEVEL 23 MMOL/L (20-31); CHLORIDE LEVEL 112 MMOL/L (98-107); CREATININE FOR GFR 0.45 MG/DL (0.70-1.30); GLOMERULAR FILTRATION RATE > 60.0 (>60); GLUCOSE, FASTING 80 MG/DL (60-100); SODIUM LEVEL 139 MMOL/L (136-145)
[2024-02-28] VITALS (7 sets, daily range): BP systolic 111–162; BP diastolic 82–98; TEMP 97.2–98.2; O2SAT 94–98
[2024-02-28 06:35] LABS: HEMATOCRIT 32.5 % (42.0-52.0); HEMOGLOBIN 10.3 g/dl (13.5-17.5); MEAN CORPUSCULAR HEMOGLOBIN 28.8 pg (27.0-33.0); MEAN CORPUSCULAR HGB CONC 31.7 g/dl (32.0-36.5); MEAN CORPUSCULAR VOLUME 90.8 fl (80.0-96.0); PLATELET COUNT, AUTOMATED 580 10^3/uL (150-450); RED BLOOD COUNT 3.58 10^6/uL (4.30-6.10); WHITE BLOOD COUNT 9.2 10^3/uL (4.0-10.0)
[2024-02-28 07:28] LABS: BLOOD UREA NITROGEN < 5 MG/DL (9-23); CALCIUM LEVEL 9.1 MG/DL (8.5-10.1); CARBON DIOXIDE LEVEL 26 MMOL/L (20-31); CHLORIDE LEVEL 108 MMOL/L (98-107); CREATININE FOR GFR 0.45 MG/DL (0.70-1.30); GLOMERULAR FILTRATION RATE > 60.0 (>60); GLUCOSE, FASTING 92 MG/DL (60-100); SODIUM LEVEL 141 MMOL/L (136-145)
[2024-02-28] MEDS: ACETAMINOPHEN 325 MG TAB PO SCH (09:00)
[2024-02-28] MEDS: MELOXICAM (MOBIC) 7.5 MG TAB PO SCH (12:49)
[2024-02-28] MEDS: DULoxetine 30MG CAPSULE (CYMBALTA) PO SCH (12:49)
[2024-02-29 04:00] VITALS: BP 127/88; TEMP 97.7; O2SAT 96
[2024-02-29 06:27] LABS: HEMATOCRIT 33.8 % (42.0-52.0); HEMOGLOBIN 10.9 g/dl (13.5-17.5); MEAN CORPUSCULAR HEMOGLOBIN 28.9 pg (27.0-33.0); MEAN CORPUSCULAR HGB CONC 32.2 g/dl (32.0-36.5); MEAN CORPUSCULAR VOLUME 89.7 fl (80.0-96.0); PLATELET COUNT, AUTOMATED 564 10^3/uL (150-450); RED BLOOD COUNT 3.77 10^6/uL (4.30-6.10); WHITE BLOOD COUNT 10.8 10^3/uL (4.0-10.0)
[2024-02-29 07:00] LABS: BLOOD UREA NITROGEN 8 MG/DL (9-23); CALCIUM LEVEL 9.5 MG/DL (8.5-10.1); CARBON DIOXIDE LEVEL 26 MMOL/L (20-31); CHLORIDE LEVEL 107 MMOL/L (98-107); CREATININE FOR GFR 0.54 MG/DL (0.70-1.30); GLOMERULAR FILTRATION RATE > 60.0 (>60); GLUCOSE, FASTING 101 MG/DL (60-100); POTASSIUM SERUM 4.3 MMOL/L (3.5-5.1); SODIUM LEVEL 138 MMOL/L (136-145)
[2024-02-29] MEDS ORDERED: CYMB1CAP5 PO (11:41)
[2024-02-29] MEDS ORDERED: MELO15TA28 PO (11:41)
[2024-02-29 12:22] VITALS: BP 130/86; TEMP 97.9; O2SAT 96
[2024-02-29 13:32] VITALS: O2SAT 95
== END 2024-02-29 14:45 | disposition home or self-care (01) ==
LOC: M ED 17:04 → M ED INP 23:05 → M MSPAV 02-25 14:49
PROVIDERS: ADMIT Preventive Medicine Undersea and Hyperbaric Medicine; ATTEND Family Medicine
DX: R10.9 Unspecified abdominal pain (principal); G89.29 Other chronic pain; Z87.19 Personal history of other diseases of the digestive system; Z93.3 Colostomy status; K43.5 Parastomal hernia without obstruction or gangrene; R11.0 Nausea; I10 Essential (primary) hypertension; E78.5 Hyperlipidemia, unspecified; J45.909 Unspecified asthma, uncomplicated; K21.9 Gastro-esophageal reflux disease without esophagitis; N31.9 Neuromuscular dysfunction of bladder, unspecified; Q05.9 Spina bifida, unspecified; F32.A Depression, unspecified; F41.0 Panic disorder [episodic paroxysmal anxiety]; L89.90 Pressure ulcer of unspecified site, unspecified stage; Z86.14 Personal history of Methicillin resistant Staphylococcus aureus infection; M19.90 Unspecified osteoarthritis, unspecified site; G47.00 Insomnia, unspecified; K56.609 Unspecified intestinal obstruction, unspecified as to partial versus complete obstruction; G82.20 Paraplegia, unspecified; Z98.890 Other specified postprocedural states; Z98.2 Presence of cerebrospinal fluid drainage device; Z88.1 Allergy status to other antibiotic agents; Z91.040 Latex allergy status; Z88.6 Allergy status to analgesic agent; Z79.899 Other long term (current) drug therapy; Z79.2 Long term (current) use of antibiotics
CPT/HCPCS: 36415; 51701; 74018; 74176; 76775; 80048; 80053; 80076; 81001; 83735; 85025; 85027; 87088; 87186; 93005; 96361; 96372; 96374; 96376; 99285; G0378; J1650

== ENCOUNTER → 2024-03-15 | Outpatient (CLI) | payer MEDICARE, MEDICAID ==
[~2024-03-15] MED LIST changes: +CYMB1CAP5 PO; +MELO15TA28 PO; +PANT40TA29 PO; +VENTAER INH; +VITA1CAP25 PO
[2024-03-15 12:24] LABS: BASO # 0.1 10^3/uL (0.0-0.2); BASO % 0.6 % (0.0-1.0); EOS # 0.7 10^3/uL (0.0-0.5); EOS % 5.5 % (0.0-3.0); HEMATOCRIT 36.1 % (42.0-52.0); HEMOGLOBIN 10.8 g/dl (13.5-17.5); LYMPH # 2.6 10^3/uL (1.5-5.0); LYMPH % 19.9 % (24.0-44.0); MEAN CORPUSCULAR HEMOGLOBIN 28.4 pg (27.0-33.0); MEAN CORPUSCULAR HGB CONC 29.9 g/dl (32.0-36.5); MONO # 0.8 10^3/uL (0.0-0.8); MONO % 6.3 % (2.0-8.0); NEUTROPHILS # 8.7 10^3/uL (1.5-8.5); NEUTROPHILS % 66.9 % (36.0-66.0); PLATELET COUNT, AUTOMATED 410 10^3/uL (150-450)
[2024-03-15 12:39] LABS: ERYTHROCYTE SEDIMENTATION RATE 104 mm/hr (0-15)
[2024-03-15 12:45] LABS: ALBUMIN 3.3 G/DL (3.2-5.2); ALKALINE PHOSPHATASE 131 U/L (46-116); ALT/SGPT 27 U/L (7.0-40); AST/SGOT 14 U/L (<34); BILIRUBIN,TOTAL 0.2 MG/DL (0.3-1.2); BLOOD UREA NITROGEN 19 MG/DL (9-23); CALCIUM LEVEL 9.5 MG/DL (8.5-10.1); CARBON DIOXIDE LEVEL 28 MMOL/L (20-31); CHLORIDE LEVEL 104 MMOL/L (98-107); CREATININE FOR GFR 0.41 MG/DL (0.70-1.30); GLOMERULAR FILTRATION RATE > 60.0 (>60); GLUCOSE, FASTING 72 MG/DL (60-100); POTASSIUM SERUM 4.6 MMOL/L (3.5-5.1); SODIUM LEVEL 138 MMOL/L (136-145); TOTAL PROTEIN 7.8 G/DL (5.7-8.2)
== END ==
LOC: M PLALAB 08:37
PROVIDERS: ATTEND Internal Medicine Infectious Disease
DX: M46.45 Discitis, unspecified, thoracolumbar region (principal)

== ENCOUNTER 2024-04-15 21:01 | Inpatient (IN) | payer MEDICARE, MEDICAID ==
[~2024-04-15] VITALS: Ht 149.9 cm; Wt 47.4 kg
[2024-04-15 23:11] LABS: BASO # 0.1 10^3/uL (0.0-0.2); BASO % 0.4 % (0.0-1.0); EOS % 0.2 % (0.0-3.0); HEMATOCRIT 33.5 % (42.0-52.0); HEMOGLOBIN 10.4 g/dl (13.5-17.5); LYMPH # 1.2 10^3/uL (1.5-5.0); LYMPH % 5.3 % (24.0-44.0); MEAN CORPUSCULAR HEMOGLOBIN 29.1 pg (27.0-33.0); MEAN CORPUSCULAR VOLUME 93.6 fl (80.0-96.0); MONO # 1.2 10^3/uL (0.0-0.8); MONO % 5.3 % (2.0-8.0); NEUTROPHILS # 19.6 10^3/uL (1.5-8.5); NEUTROPHILS % 88.3 % (36.0-66.0); PLATELET COUNT, AUTOMATED 381 10^3/uL (150-450); RED BLOOD COUNT 3.58 10^6/uL (4.30-6.10); WHITE BLOOD COUNT 22.2 10^3/uL (4.0-10.0)
[2024-04-15 23:13] VITALS: BP 123/74
[2024-04-15] MEDS: NITROGLYCERIN 0.4MG SUBL TABLET SL PRN (23:13)
[2024-04-15 23:19] LABS: BLOOD UREA NITROGEN 18 MG/DL (9-23); CALCIUM LEVEL 9.6 MG/DL (8.5-10.1); CARBON DIOXIDE LEVEL 27 MMOL/L (20-31); CHLORIDE LEVEL 105 MMOL/L (98-107); CK-MB VALUE MASS < 1.0 NG/ML (<3.6); CPK CREATINE PHOSPHOKINASE 45 U/L (46-171); CREATININE FOR GFR 0.59 MG/DL (0.70-1.30); GLOMERULAR FILTRATION RATE > 60.0 (>60); GLUCOSE, FASTING 108 MG/DL (60-100); MB/CK RELATIVE INDEX 2.22 (< OR =4); POTASSIUM SERUM 3.7 MMOL/L (3.5-5.1); SODIUM LEVEL 138 MMOL/L (136-145)
[2024-04-15] MEDS: MORPHINE 2 MG/ML 1ML VIAL IV PRN (23:45)
[2024-04-15] MEDS: NS 1,000 ML IV ONE (23:50)
[2024-04-15] MEDS ORDERED: ISOVUE-370 76% 100ML VIAL As Ordered ONE (23:50)
[2024-04-16] VITALS (9 sets, daily range): BP systolic 96–145; BP diastolic 55–93; TEMP 98–98.6; O2SAT 96–100
[2024-04-16 02:11] LABS: CK-MB VALUE MASS < 1.0 NG/ML (<3.6)
[2024-04-16 02:12] LABS: CPK CREATINE PHOSPHOKINASE 34 U/L (46-171); MB/CK RELATIVE INDEX 2.94 (< OR =4)
[2024-04-16] MEDS: KETOROLAC 30 MG/ML 1ML VIAL IV ONE (04:07)
[2024-04-16] MEDS: NS 500 ML IV ONE (04:07)
[2024-04-16] MEDS: CEFEPIME HCL 1 GM in D5W MINI-BAG PLUS 50 ML IV ONE (04:55)
[2024-04-16] MEDS: NS 1,000 ML IV ONE ×2 (05:53→06:49)
[2024-04-16] MEDS: NOREPINEPHRINE 4MG IN D5 250ML 4 MG in IV 1 EA IV SCH (07:49)
[2024-04-16] MEDS ORDERED: IBUPROFEN 400MG TAB PO PRN (08:15)
[2024-04-16] MEDS ORDERED: ACETAMINOPHEN 325 MG TAB PO PRN (08:15)
[2024-04-16] MEDS ORDERED: DULO1CAP5 PO (08:53)
[2024-04-16] MEDS ORDERED: ACET-683 PO (08:55)
[2024-04-16] MEDS ORDERED: HOME MED LIST COMPLETE! XX SCH ×2 (09:00→15:55)
[2024-04-16] MEDS ORDERED: VANCOMYCIN/WATER FOR INJ 1,000 MG in IV 1 EA IV ONE (11:00)
[2024-04-16] MEDS: VANCOMYCIN/WATER FOR INJ 1,000 MG in IV 1 EA IV ONE (11:01)
[2024-04-16] MEDS: HEPARIN SOD (PORCINE) 5000UNITS/ML 1ML VIAL/SYRINGE SC SCH (11:02)
[2024-04-16] MEDS: ACETAMINOPHEN *IV* 1,000 MG in IV 1 EA IV PRN (11:15)
[2024-04-16] MEDS: CEFEPIME HCL 2 GM in D5W MINI-BAG PLUS 50 ML IV SCH (12:10)
[2024-04-16 15:41] LABS: BASO # 0.1 10^3/uL (0.0-0.2); BASO % 0.5 % (0.0-1.0); EOS # 0.2 10^3/uL (0.0-0.5); EOS % 1.7 % (0.0-3.0); HEMATOCRIT 31.2 % (42.0-52.0); HEMOGLOBIN 9.4 g/dl (13.5-17.5); LYMPH # 2.1 10^3/uL (1.5-5.0); LYMPH % 16.7 % (24.0-44.0); MEAN CORPUSCULAR HEMOGLOBIN 28.5 pg (27.0-33.0); MEAN CORPUSCULAR HGB CONC 30.1 g/dl (32.0-36.5); MEAN CORPUSCULAR VOLUME 94.5 fl (80.0-96.0); MONO # 1.3 10^3/uL (0.0-0.8); MONO % 10.3 % (2.0-8.0); NEUTROPHILS # 8.9 10^3/uL (1.5-8.5); NEUTROPHILS % 70.2 % (36.0-66.0); PLATELET COUNT, AUTOMATED 279 10^3/uL (150-450); WHITE BLOOD COUNT 12.7 10^3/uL (4.0-10.0)
[2024-04-16 16:01] LABS: ALBUMIN 2.6 G/DL (3.2-5.2); ALKALINE PHOSPHATASE 92 U/L (46-116); ALT/SGPT 12 U/L (7.0-40); AST/SGOT 10 U/L (<34); BILIRUBIN,TOTAL 0.3 MG/DL (0.3-1.2); BLOOD UREA NITROGEN 18 MG/DL (9-23); CALCIUM LEVEL 8.4 MG/DL (8.5-10.1); CARBON DIOXIDE LEVEL 22 MMOL/L (20-31); CHLORIDE LEVEL 109 MMOL/L (98-107); CREATININE FOR GFR 0.56 MG/DL (0.70-1.30); GLOMERULAR FILTRATION RATE > 60.0 (>60); GLUCOSE, FASTING 102 MG/DL (60-100); MAGNESIUM LEVEL 1.6 MG/DL (1.8-2.4); POTASSIUM SERUM 3.7 MMOL/L (3.5-5.1); SODIUM LEVEL 137 MMOL/L (136-145); TOTAL PROTEIN 6.3 G/DL (5.7-8.2)
[2024-04-16] MEDS: ACETAMINOPHEN 325 MG TAB PO PRN (16:31)
[2024-04-16] MEDS: VANCOMYCIN 750MG/150 ML IV BAG IV SCH (16:41)
[2024-04-16] MEDS ORDERED: VANCOMYCIN HCL 750 MG, VIAL MATE ADAPTER 1 EACH in D5W 250 ML IV SCH (17:00)
[2024-04-16] MEDS: MAG SULF 1GM/100ML (MAG RUN) 1 GM in IV 1 EA IV SCH (17:49)
[2024-04-16] MEDS: DULoxetine 30MG CAPSULE (CYMBALTA) PO SCH (20:24)
[2024-04-16] MEDS: PANTOPRAZOLE 40MG TAB (PROTONIX) PO SCH (20:24)
[2024-04-16] MEDS: AMITRIPTYLINE 50 MG TAB PO SCH (20:59)
[2024-04-17] VITALS: BP 137/81; TEMP 98.9; O2SAT 97
[2024-04-17 04:00] VITALS: BP 137/78; TEMP 98.2; O2SAT 96
[2024-04-17 05:37] LABS: HEMATOCRIT 29.8 % (42.0-52.0); HEMOGLOBIN 9.2 g/dl (13.5-17.5); MEAN CORPUSCULAR HEMOGLOBIN 28.7 pg (27.0-33.0); MEAN CORPUSCULAR HGB CONC 30.9 g/dl (32.0-36.5); MEAN CORPUSCULAR VOLUME 92.8 fl (80.0-96.0); PLATELET COUNT, AUTOMATED 259 10^3/uL (150-450); RED BLOOD COUNT 3.21 10^6/uL (4.30-6.10); WHITE BLOOD COUNT 10.5 10^3/uL (4.0-10.0)
[2024-04-17 05:59] LABS: ALBUMIN 2.4 G/DL (3.2-5.2); ALKALINE PHOSPHATASE 104 U/L (46-116); ALT/SGPT 17 U/L (7.0-40); AST/SGOT 13 U/L (<34); BILIRUBIN,TOTAL 0.2 MG/DL (0.3-1.2); BLOOD UREA NITROGEN 14 MG/DL (9-23); CALCIUM LEVEL 8.5 MG/DL (8.5-10.1); CARBON DIOXIDE LEVEL 21 MMOL/L (20-31); CHLORIDE LEVEL 113 MMOL/L (98-107); CREATININE FOR GFR 0.45 MG/DL (0.70-1.30); GLOMERULAR FILTRATION RATE > 60.0 (>60); GLUCOSE, FASTING 108 MG/DL (60-100); POTASSIUM SERUM 3.9 MMOL/L (3.5-5.1); SODIUM LEVEL 141 MMOL/L (136-145); TOTAL PROTEIN 6.4 G/DL (5.7-8.2)
[2024-04-17 09:07] VITALS: BP 143/79; TEMP 97.9; O2SAT 97
[2024-04-17] MEDS: LORATADINE 10 MG TAB PO SCH (09:22)
[2024-04-17] MEDS: FOLIC ACID 1MG TAB PO SCH (09:22)
[2024-04-17 12:49] VITALS: BP 140/89; TEMP 98.2; O2SAT 99
[2024-04-17 16:36] VITALS: BP 138/89; TEMP 98.2; O2SAT 99
[2024-04-17] MEDS: LINEZOLID 600MG TABLET (ZYVOX) PO SCH (20:21)
[2024-04-17 20:26] VITALS: BP 170/94; TEMP 98.5; O2SAT 97
[2024-04-18] VITALS (7 sets, daily range): BP systolic 129–157; BP diastolic 76–87; TEMP 98–98.9; O2SAT 96–98
[2024-04-18 05:02] LABS: HEMATOCRIT 30.5 % (42.0-52.0); HEMOGLOBIN 9.3 g/dl (13.5-17.5); MEAN CORPUSCULAR HEMOGLOBIN 28.3 pg (27.0-33.0); MEAN CORPUSCULAR HGB CONC 30.5 g/dl (32.0-36.5); MEAN CORPUSCULAR VOLUME 92.7 fl (80.0-96.0); PLATELET COUNT, AUTOMATED 305 10^3/uL (150-450); RED BLOOD COUNT 3.29 10^6/uL (4.30-6.10); WHITE BLOOD COUNT 10.7 10^3/uL (4.0-10.0)
[2024-04-18 05:25] LABS: ALBUMIN 2.4 G/DL (3.2-5.2); ALKALINE PHOSPHATASE 111 U/L (46-116); ALT/SGPT 16 U/L (7.0-40); AST/SGOT 11 U/L (<34); BILIRUBIN,TOTAL 0.3 MG/DL (0.3-1.2); BLOOD UREA NITROGEN 10 MG/DL (9-23); CALCIUM LEVEL 8.7 MG/DL (8.5-10.1); CARBON DIOXIDE LEVEL 21 MMOL/L (20-31); CHLORIDE LEVEL 111 MMOL/L (98-107); CREATININE FOR GFR 0.46 MG/DL (0.70-1.30); GLOMERULAR FILTRATION RATE > 60.0 (>60); GLUCOSE, FASTING 112 MG/DL (60-100); SODIUM LEVEL 139 MMOL/L (136-145); TOTAL PROTEIN 6.5 G/DL (5.7-8.2)
[2024-04-18] MEDS: ALBUTEROL SULFATE 2.5MG/0.5ML INH NEB SOLN NEB PRN (08:21)
[2024-04-18] MEDS: ONDANSETRON 4MG ORAL DISINTEGRATING TAB PO PRN (16:37)
[2024-04-19] VITALS (8 sets, daily range): BP systolic 114–139; BP diastolic 61–80; TEMP 97.6–99.9; O2SAT 94–100
[2024-04-19 04:52] LABS: HEMATOCRIT 30.7 % (42.0-52.0); HEMOGLOBIN 9.2 g/dl (13.5-17.5); MEAN CORPUSCULAR HEMOGLOBIN 27.6 pg (27.0-33.0); MEAN CORPUSCULAR VOLUME 92.2 fl (80.0-96.0); PLATELET COUNT, AUTOMATED 279 10^3/uL (150-450); RED BLOOD COUNT 3.33 10^6/uL (4.30-6.10); WHITE BLOOD COUNT 7.8 10^3/uL (4.0-10.0)
[2024-04-19 05:12] LABS: ALBUMIN 2.4 G/DL (3.2-5.2); ALKALINE PHOSPHATASE 107 U/L (46-116); ALT/SGPT 12 U/L (7.0-40); AST/SGOT 8 U/L (<34); BILIRUBIN,TOTAL 0.3 MG/DL (0.3-1.2); BLOOD UREA NITROGEN 7 MG/DL (9-23); CALCIUM LEVEL 9.1 MG/DL (8.5-10.1); CARBON DIOXIDE LEVEL 23 MMOL/L (20-31); CHLORIDE LEVEL 109 MMOL/L (98-107); CREATININE FOR GFR 0.49 MG/DL (0.70-1.30); GLOMERULAR FILTRATION RATE > 60.0 (>60); GLUCOSE, FASTING 87 MG/DL (60-100); POTASSIUM SERUM 3.9 MMOL/L (3.5-5.1); SODIUM LEVEL 140 MMOL/L (136-145); TOTAL PROTEIN 6.3 G/DL (5.7-8.2)
[2024-04-19] MEDS: FLUZONE VACCINE TRIVALENT PF(2024-25) 0.5ML SYRINGE IM.IMMUN ONE (15:41)
[2024-04-19] MEDS: HYDROCORTISONE 2.5% 20GM OINTMENT TOP SCH (20:58)
[2024-04-19] MEDS: KETOCONAZOLE 2% CREAM TOP SCH (20:58)
[2024-04-20 03:55] VITALS: BP 127/79; TEMP 97.4; O2SAT 97
[2024-04-20 06:26] LABS: HEMATOCRIT 30.7 % (42.0-52.0); HEMOGLOBIN 9.4 g/dl (13.5-17.5); MEAN CORPUSCULAR HEMOGLOBIN 28.2 pg (27.0-33.0); MEAN CORPUSCULAR HGB CONC 30.6 g/dl (32.0-36.5); MEAN CORPUSCULAR VOLUME 92.2 fl (80.0-96.0); PLATELET COUNT, AUTOMATED 308 10^3/uL (150-450); RED BLOOD COUNT 3.33 10^6/uL (4.30-6.10); WHITE BLOOD COUNT 7.5 10^3/uL (4.0-10.0)
[2024-04-20 06:37] LABS: ALBUMIN 2.5 G/DL (3.2-5.2); ALKALINE PHOSPHATASE 102 U/L (46-116); ALT/SGPT 13 U/L (7.0-40); AST/SGOT < 8 U/L (<34); BILIRUBIN,TOTAL 0.2 MG/DL (0.3-1.2); BLOOD UREA NITROGEN 10 MG/DL (9-23); CALCIUM LEVEL 9.1 MG/DL (8.5-10.1); CARBON DIOXIDE LEVEL 25 MMOL/L (20-31); CHLORIDE LEVEL 109 MMOL/L (98-107); CREATININE FOR GFR 0.53 MG/DL (0.70-1.30); GLOMERULAR FILTRATION RATE > 60.0 (>60); GLUCOSE, FASTING 90 MG/DL (60-100); POTASSIUM SERUM 3.9 MMOL/L (3.5-5.1); SODIUM LEVEL 140 MMOL/L (136-145); TOTAL PROTEIN 6.7 G/DL (5.7-8.2)
[2024-04-20 08:16] VITALS: BP 146/85; TEMP 98.1; O2SAT 95
[2024-04-20] MEDS ORDERED: LINE1TAB6 PO (08:28)
[2024-04-20] MEDS ORDERED: HYDR25OIN TOP (08:28)
[2024-04-20] MEDS ORDERED: KETO2CR TOP (08:28)
[2024-04-20 11:18] VITALS: BP 148/86; TEMP 98.1; O2SAT 93
[2024-04-20] MEDS: LINEZOLID 600MG TABLET (ZYVOX) PO ONE (14:35)
== END 2024-04-20 15:00 | disposition home health service (06) | DRG 871 ==
LOC: M ED 21:01 → M ED INP 04-16 07:38 → M ICU 04-16 09:21 → M PCU 04-19 12:17
PROVIDERS: ADMIT Internal Medicine Pulmonary Disease; ATTEND Internal Medicine
DX: A41.9 Sepsis, unspecified organism (principal); R65.21 Severe sepsis with septic shock; L89.134 Pressure ulcer of right lower back, stage 4; G82.20 Paraplegia, unspecified; S22.31XA Fracture of one rib, right side, initial encounter for closed fracture; M46.24 Osteomyelitis of vertebra, thoracic region; I10 Essential (primary) hypertension; E78.5 Hyperlipidemia, unspecified; Q05.9 Spina bifida, unspecified; L89.152 Pressure ulcer of sacral region, stage 2; L89.522 Pressure ulcer of left ankle, stage 2; J45.909 Unspecified asthma, uncomplicated; F41.0 Panic disorder [episodic paroxysmal anxiety]; K21.9 Gastro-esophageal reflux disease without esophagitis; N31.9 Neuromuscular dysfunction of bladder, unspecified; F32.A Depression, unspecified; Z86.718 Personal history of other venous thrombosis and embolism; G47.00 Insomnia, unspecified; X58.XXXA Exposure to other specified factors, initial encounter; Y92.9 Unspecified place or not applicable; Z79.899 Other long term (current) drug therapy; Z88.6 Allergy status to analgesic agent; Z88.1 Allergy status to other antibiotic agents; Z91.040 Latex allergy status; Z87.891 Personal history of nicotine dependence; K80.20 Calculus of gallbladder without cholecystitis without obstruction; Z99.3 Dependence on wheelchair; G89.29 Other chronic pain

== ENCOUNTER 2024-05-06 19:51 | Inpatient (IN) | payer MEDICARE, MEDICAID ==
[~2024-05-06] VITALS: Ht 149.9 cm; Wt 52.3 kg
[~2024-05-06 19:51] MED LIST changes: +ACET-683 PO; +DULO1CAP5 PO; +HYDR25OIN TOP; +KETO2CR TOP; +LINE1TAB6 PO
[2024-05-06] MEDS: ONDANSETRON 4MG 2ML VIAL IV ONE (20:34)
[2024-05-06] MEDS: MORPHINE 4 MG/ML 1ML VIAL IV ONE (20:35)
[2024-05-06] MEDS: NS 1,000 ML IV ONE (20:45)
[2024-05-06 20:52] LABS: BASO # 0.1 10^3/uL (0.0-0.2); BASO % 0.4 % (0.0-1.0); EOS % 0.2 % (0.0-3.0); HEMATOCRIT 36.1 % (42.0-52.0); HEMOGLOBIN 11.3 g/dl (13.5-17.5); LYMPH % 4.4 % (24.0-44.0); MEAN CORPUSCULAR HEMOGLOBIN 29.5 pg (27.0-33.0); MEAN CORPUSCULAR HGB CONC 31.3 g/dl (32.0-36.5); MEAN CORPUSCULAR VOLUME 94.3 fl (80.0-96.0); MONO # 1.2 10^3/uL (0.0-0.8); MONO % 5.3 % (2.0-8.0); NEUTROPHILS # 20.4 10^3/uL (1.5-8.5); PLATELET COUNT, AUTOMATED 417 10^3/uL (150-450); RED BLOOD COUNT 3.83 10^6/uL (4.30-6.10)
[2024-05-06 21:22] LABS: LIPASE 37 U/L (12-53)
[2024-05-06 21:24] LABS: ALKALINE PHOSPHATASE 125 U/L (40-129); ALT/SGPT 16 U/L (7.0-40); AST/SGOT 11 U/L (<34); BILIRUBIN,TOTAL 0.2 MG/DL (0.3-1.2); BLOOD UREA NITROGEN 19 MG/DL (9-23); CALCIUM LEVEL 10.7 MG/DL (8.5-10.1); CARBON DIOXIDE LEVEL 27 MMOL/L (20-31); CHLORIDE LEVEL 101 MMOL/L (98-107); CREATININE FOR GFR 0.65 MG/DL (0.70-1.30); GLOMERULAR FILTRATION RATE > 60.0 (>60); GLUCOSE, FASTING 136 MG/DL (60-100); POTASSIUM SERUM 4.8 MMOL/L (3.5-5.1); SODIUM LEVEL 136 MMOL/L (136-145)
[2024-05-06] MEDS: NS 500 ML IV ONE (21:40)
[2024-05-06] MEDS: NS 1,000 ML IV SCH (22:03)
[2024-05-06] MEDS: MORPHINE 2 MG/ML 1ML VIAL IV ONE (22:51)
[2024-05-06] MEDS: BISACODYL 10MG SUPP PR ONE (23:10)
[2024-05-06] MEDS: METOCLOPRAMIDE INJ 10MG/2ML VIAL IV ONE (23:30)
[2024-05-07] VITALS (57 sets, daily range): BP systolic 80–125; BP diastolic 51–81; TEMP 97.2–98.4; O2SAT 83–100
[2024-05-07 00:11] LABS: PROCALCITONIN 0.26 ng/ml
[2024-05-07] MEDS: CEFEPIME HCL 1 GM in DEXTROSE 5% (D5W) ADV/MINI-BAG 50 ML IV ONE (00:23)
[2024-05-07] MEDS ORDERED: GLUCOSE 4 GM CHEW PO PRN (00:35)
[2024-05-07] MEDS ORDERED: DEXTROSE 50% 50ML SYRINGE IV PRN (00:35)
[2024-05-07] MEDS ORDERED: KETOROLAC 30 MG/ML 1ML VIAL IV ONE (00:35)
[2024-05-07] MEDS ORDERED: GLUCAGON INJ 1MG VIAL SC PRN (00:35)
[2024-05-07] MEDS: NOREPINEPHRINE 4MG IN D5 250ML 4 MG in IV 1 EA IV SCH (01:24)
[2024-05-07] MEDS ORDERED: HOME MED LIST COMPLETE! XX SCH (01:25)
[2024-05-07] MEDS: NS 1,000 ML IV ONE (01:42)
[2024-05-07] MEDS: ACETAMINOPHEN *IV* 500 MG in IV 1 EA IV ONE (01:42)
[2024-05-07] MEDS: MORPHINE 2 MG/ML 1ML VIAL IV ONE (03:14)
[2024-05-07] MEDS ORDERED: IPRATROPIUM 0.5MG/ALBUTEROL 2.5MG INH SOL UD 3ML (DUONEB) As Ordered ONE (03:21)
[2024-05-07] MEDS: IPRATROPIUM 0.5MG/ALBUTEROL 2.5MG INH SOL UD 3ML (DUONEB) NEB ONE (03:25)
[2024-05-07] MEDS ORDERED: IPRATROPIUM 0.5MG/ALBUTEROL 2.5MG INH SOL UD 3ML (DUONEB) NEB PRN (03:25)
[2024-05-07] MEDS ORDERED: MORPHINE 2 MG/ML 1ML VIAL IV PRN ×3 (05:25→09:00)
[2024-05-07] MEDS ORDERED: NOREPINEPHRINE 4MG IN D5 250ML 4 MG in IV 1 EA IV SCH (05:40)
[2024-05-07] MEDS: VANCOMYCIN 1,000 MG/200 ML IV BAG *LOAD IV ONE (05:51)
[2024-05-07] MEDS: ONDANSETRON 4MG 2ML VIAL IV PRN (05:51)
[2024-05-07] MEDS: NS 1,000 ML IV SCH (05:52)
[2024-05-07] MEDS: MORPHINE 2 MG/ML 1ML VIAL IV PRN (06:20)
[2024-05-07 06:43] LABS: BASO # 0.1 10^3/uL (0.0-0.2); BASO % 0.6 % (0.0-1.0); EOS # 0.2 10^3/uL (0.0-0.5); EOS % 1.5 % (0.0-3.0); HEMATOCRIT 30.3 % (42.0-52.0); LYMPH # 1.1 10^3/uL (1.5-5.0); LYMPH % 7.3 % (24.0-44.0); MEAN CORPUSCULAR HEMOGLOBIN 29.2 pg (27.0-33.0); MEAN CORPUSCULAR HGB CONC 30.4 g/dl (32.0-36.5); MEAN CORPUSCULAR VOLUME 96.2 fl (80.0-96.0); MONO # 1.7 10^3/uL (0.0-0.8); NEUTROPHILS # 11.9 10^3/uL (1.5-8.5); NEUTROPHILS % 79.2 % (36.0-66.0); RED BLOOD COUNT 3.15 10^6/uL (4.30-6.10)
[2024-05-07 06:45] LABS: HEMOGLOBIN 9.2 g/dl (13.5-17.5)
[2024-05-07 06:46] LABS: PLATELET COUNT, AUTOMATED 269 10^3/uL (150-450)
[2024-05-07 07:08] LABS: BLOOD UREA NITROGEN 19 MG/DL (9-23); CALCIUM LEVEL 8.4 MG/DL (8.5-10.1); CARBON DIOXIDE LEVEL 25 MMOL/L (20-31); CHLORIDE LEVEL 111 MMOL/L (98-107); CREATININE FOR GFR 0.58 MG/DL (0.70-1.30); GLOMERULAR FILTRATION RATE > 60.0 (>60); GLUCOSE, FASTING 124 MG/DL (60-100); MAGNESIUM LEVEL 1.6 MG/DL (1.8-2.4); POTASSIUM SERUM 4.3 MMOL/L (3.5-5.1); SODIUM LEVEL 142 MMOL/L (136-145)
[2024-05-07] MEDS: fentaNYL 100 MCG/2 ML INJECTION IV ONE (07:39)
[2024-05-07] MEDS: IPRATROPIUM 0.5MG/ALBUTEROL 2.5MG INH SOL UD 3ML (DUONEB) INH SCH (07:46)
[2024-05-07] MEDS: ONDANSETRON 4MG 2ML VIAL IV STA (08:39)
[2024-05-07] MEDS: PANTOPRAZOLE 40MG VIAL IV SCH (08:39)
[2024-05-07] MEDS: CEFEPIME HCL 2 GM in DEXTROSE 5% (D5W) ADV/MINI-BAG 50 ML IV SCH (08:43)
[2024-05-07] MEDS: fentaNYL 100 MCG/2 ML INJECTION IV PRN (10:27)
[2024-05-07] MEDS ORDERED: fentaNYL 250 MCG/5 ML INJECTION As Ordered ONE (10:53)
[2024-05-07] MEDS ORDERED: ACETAMINOPHEN 1000MG/100ML IV BAG As Ordered ONE (10:53)
[2024-05-07] MEDS ORDERED: propofoL 200 MG/20 ML VIAL As Ordered ONE (10:53)
[2024-05-07] MEDS ORDERED: MIDAZOLAM INJ 2MG/2ML VIAL As Ordered ONE (10:53)
[2024-05-07] MEDS ORDERED: SUGAMMADEX SODIUM 500 MG/5 ML VIAL (BRIDION) As Ordered ONE (10:53)
[2024-05-07] MEDS ORDERED: ONDANSETRON 4MG 2ML VIAL As Ordered ONE (10:53)
[2024-05-07] MEDS ORDERED: ROCURONIUM BROMIDE 50MG/5ML VIAL As Ordered ONE (10:53)
[2024-05-07] MEDS ORDERED: KETOROLAC 60MG 2ML VIAL As Ordered ONE (10:53)
[2024-05-07] MEDS ORDERED: LIDOCAINE 2% 100MG/5ML SDV (FOR ANES.) As Ordered ONE (10:53)
[2024-05-07] MEDS: MAG SULF 1GM/100ML (MAG RUN) 1 GM in IV 1 EA IV ONE (10:59)
[2024-05-07] MEDS: ceFAZolin 2 GM/D5W 50 ML IV BAG As Ordered ONE (12:50)
[2024-05-07] MEDS ORDERED: VASOPRESSIN INJ 20UNITS/ML 1ML VIAL As Ordered ONE (12:51)
[2024-05-07] MEDS: metroNIDAZOLE/NACL 500MG(5MG/ML) 100ML BAG As Ordered ONE (12:54)
[2024-05-07] MEDS ORDERED: PHENYLephrine 500MCG 5ML (100MCG/ML) SYRINGE As Ordered ONE (13:16)
[2024-05-07] MEDS ORDERED: PHENYLEPHRINE 10MG/ML 1ML VIAL As Ordered ONE (14:21)
[2024-05-07] MEDS: BOTOX THERAPEUTIC 100 UNIT VIAL As Ordered ONE (16:15)
[2024-05-07] MEDS: LIDOCAINE 1% SDV 30ML VIAL As Ordered ONE (17:00)
[2024-05-07] MEDS ORDERED: PROPOFOL 1,000 MG/100 ML VIAL As Ordered ONE (17:14)
[2024-05-07] MEDS ORDERED: PHENYLephrine 500MCG 5ML (100MCG/ML) SYRINGE IV PRN (17:15)
[2024-05-07] MEDS ORDERED: ePHEDrine SULFATE 25 MG/5 ML(5MG/ML) SYRINGE IV PRN (17:20)
[2024-05-07] MEDS: PHENYLEPHRINE HCL INJ 10 MG in D5W 100 ML IV SCH (17:30)
[2024-05-07] MEDS ORDERED: FENTANYL DRIP LOCK BOX KEY 1 EACH XX PRN (18:20)
[2024-05-07] MEDS ORDERED: PHENYLEPHRINE HCL INJ 50 MG in D5W 500 ML IV SCH (18:30)
[2024-05-07] MEDS: VANCOMYCIN 750MG/150 ML IV BAG IV SCH (18:34)
[2024-05-07 21:43] LABS: VENOUS BASE EXCESS -12.3 (-2.0-2.0); VENOUS HCO3 15.7 MMOL/L (23.0-27.0); VENOUS O2 SATURATION 98.6 % (60.0-80.0); VENOUS PARTIAL PRESSURE CO2 44.6 mmHg (38.0-50.0); VENOUS PARTIAL PRESSURE O2 223.7 mmHg (30.0-50.0); VENOUS PH 7.164 UNITS (7.330-7.430); VENOUS STANDARD HCO3 14.7 MMOL/L; VENOUS TOTAL CO2 17.1 MMOL/L (24.0-28.0)
[2024-05-07] MEDS: PHENYLEPHRINE HCL INJ 50 MG in D5W 495 ML IV SCH (21:51)
[2024-05-07 21:54] LABS: HEMATOCRIT 30.7 % (42.0-52.0); HEMOGLOBIN 9.6 g/dl (13.5-17.5); MEAN CORPUSCULAR HEMOGLOBIN 29.8 pg (27.0-33.0); MEAN CORPUSCULAR HGB CONC 31.3 g/dl (32.0-36.5); MEAN CORPUSCULAR VOLUME 95.3 fl (80.0-96.0); PLATELET COUNT, AUTOMATED 226 10^3/uL (150-450); RED BLOOD COUNT 3.22 10^6/uL (4.30-6.10); WHITE BLOOD COUNT 11.6 10^3/uL (4.0-10.0)
[2024-05-07] MEDS: fentaNYL CITRATE/NaCl 1,000 MCG in IV 1 EA IV SCH (21:54)
[2024-05-07 22:31] LABS: LYMPHOCYTES 11 % (16-44); MONOCYTES 13 % (0-5); NEUTROPHILS 64 % (28-66); PLATELET ESTIMATE NORMAL (NORMAL)
[2024-05-07 22:32] LABS: ANISOCYTOSIS 1+
[2024-05-07] MEDS: SODIUM CHLORIDE 0.9% 1000 ML IV ONE (23:55)
[2024-05-08] VITALS (50 sets, daily range): BP systolic 69–135; BP diastolic 45–74; TEMP 97.1–99.6; O2SAT 92–100
[2024-05-08] MEDS: MIDAZOLAM INJ 2MG/2ML VIAL IV PRN (02:11)
[2024-05-08 04:25] LABS: HEMATOCRIT 28.2 % (42.0-52.0); HEMOGLOBIN 9.1 g/dl (13.5-17.5); MEAN CORPUSCULAR HEMOGLOBIN 30.3 pg (27.0-33.0); MEAN CORPUSCULAR HGB CONC 32.3 g/dl (32.0-36.5); PLATELET COUNT, AUTOMATED 260 10^3/uL (150-450); WHITE BLOOD COUNT 21.8 10^3/uL (4.0-10.0)
[2024-05-08 04:48] LABS: LYMPHOCYTES 5 % (16-44); MONOCYTES 20 % (0-5); NEUTROPHILS 61 % (28-66)
[2024-05-08 04:49] LABS: ANISOCYTOSIS 1+; PLATELET ESTIMATE NORMAL (NORMAL)
[2024-05-08 05:36] LABS: ALBUMIN 2.2 G/DL (3.2-5.2); ALKALINE PHOSPHATASE 61 U/L (40-129); ALT/SGPT 41 U/L (7.0-40); AST/SGOT 49 U/L (<34); BILIRUBIN,TOTAL 3.9 MG/DL (0.3-1.2); BLOOD UREA NITROGEN 13 MG/DL (9-23); CALCIUM LEVEL 7.2 MG/DL (8.5-10.1); CARBON DIOXIDE LEVEL 20 MMOL/L (20-31); CHLORIDE LEVEL 116 MMOL/L (98-107); CREATININE FOR GFR 0.48 MG/DL (0.70-1.30); GLOMERULAR FILTRATION RATE > 60.0 (>60); GLUCOSE, FASTING 137 MG/DL (60-100); MAGNESIUM LEVEL 1.5 MG/DL (1.8-2.4); PHOSPHORUS LEVEL 2.7 MG/DL (2.5-4.9); POTASSIUM SERUM 3.9 MMOL/L (3.5-5.1); SODIUM LEVEL 143 MMOL/L (136-145); TOTAL PROTEIN 4.5 G/DL (5.7-8.2)
[2024-05-08] MEDS: MAG SULF 1GM/100ML (MAG RUN) 1 GM in IV 1 EA IV SCH (06:35)
[2024-05-08 08:27] LABS: VENOUS BASE EXCESS -11.2 (-2.0-2.0); VENOUS HCO3 14.4 MMOL/L (23.0-27.0); VENOUS O2 SATURATION 98.5 % (60.0-80.0); VENOUS PARTIAL PRESSURE CO2 31.1 mmHg (38.0-50.0); VENOUS PH 7.283 UNITS (7.330-7.430); VENOUS STANDARD HCO3 15.5 MMOL/L; VENOUS TOTAL CO2 15.3 MMOL/L (24.0-28.0)
[2024-05-08] MEDS: metroNIDAZOLE 500 MG in IV 1 EA IV SCH (08:51)
[2024-05-08] MEDS ORDERED: fentaNYL 100 MCG/2 ML INJECTION IV PRN (09:25)
[2024-05-08] MEDS: cefTRIAXone SOD 1 GM in DEXTROSE 5% (D5W) ADV/MINI-BAG 50 ML IV SCH (10:03)
[2024-05-08] MEDS: ACETAMINOPHEN *IV* 1,000 MG in IV 1 EA IV SCH (10:03)
[2024-05-08] MEDS: D5W/LR 1,000 ML IV SCH (11:09)
[2024-05-08] MEDS: fentaNYL 100 MCG/2 ML INJECTION IV PRN (12:25)
[2024-05-08] MEDS: KETOROLAC 30 MG/ML 1ML VIAL IV SCH (14:11)
[2024-05-08] MEDS: SODIUM CHLORIDE 0.9% 1000 ML IV STA (16:47)
[2024-05-08 17:49] LABS: BASO % 0.1 % (0.0-1.0); LYMPH # 1.6 10^3/uL (1.5-5.0); LYMPH % 11.7 % (24.0-44.0); MEAN CORPUSCULAR HEMOGLOBIN 29.8 pg (27.0-33.0); MEAN CORPUSCULAR HGB CONC 31.4 g/dl (32.0-36.5); MONO # 2.5 10^3/uL (0.0-0.8); MONO % 18.4 % (2.0-8.0); NEUTROPHILS # 9.5 10^3/uL (1.5-8.5); NEUTROPHILS % 69.3 % (36.0-66.0); RED BLOOD COUNT 2.18 10^6/uL (4.30-6.10); WHITE BLOOD COUNT 13.7 10^3/uL (4.0-10.0)
[2024-05-08 17:50] LABS: HEMATOCRIT 20.7 % (42.0-52.0); HEMOGLOBIN 6.5 g/dl (13.5-17.5)
[2024-05-08 17:51] LABS: PLATELET COUNT, AUTOMATED 151 10^3/uL (150-450)
[2024-05-08 17:54] LABS: BLOOD UREA NITROGEN 13 MG/DL (9-23); CALCIUM LEVEL 7.9 MG/DL (8.5-10.1); CARBON DIOXIDE LEVEL 18 MMOL/L (20-31); CHLORIDE LEVEL 116 MMOL/L (98-107); CREATININE FOR GFR 0.51 MG/DL (0.70-1.30); GLOMERULAR FILTRATION RATE > 60.0 (>60); GLUCOSE, FASTING 149 MG/DL (60-100); MAGNESIUM LEVEL 2.2 MG/DL (1.8-2.4); PHOSPHORUS LEVEL 2.2 MG/DL (2.5-4.9); POTASSIUM SERUM 3.7 MMOL/L (3.5-5.1); SODIUM LEVEL 143 MMOL/L (136-145)
[2024-05-08 18:43] LABS: MEAN CORPUSCULAR HEMOGLOBIN 30.2 pg (27.0-33.0); MEAN CORPUSCULAR HGB CONC 32.4 g/dl (32.0-36.5); MEAN CORPUSCULAR VOLUME 93.2 fl (80.0-96.0); PLATELET COUNT, AUTOMATED 163 10^3/uL (150-450); RED BLOOD COUNT 2.22 10^6/uL (4.30-6.10); WHITE BLOOD COUNT 14.5 10^3/uL (4.0-10.0)
[2024-05-08 18:49] LABS: HEMATOCRIT 20.7 % (42.0-52.0); HEMOGLOBIN 6.7 g/dl (13.5-17.5)
[2024-05-08] MEDS: IPRATROPIUM 0.5MG/ALBUTEROL 2.5MG INH SOL UD 3ML (DUONEB) NEB ONE (20:20)
[2024-05-08] MEDS: diphenhydrAMINE 50MG/ML VIAL IV ONE (20:24)
[2024-05-08] MEDS: SODIUM PHOSPHATE INJ 30 MMOL in D5W 500 ML IV ONE (21:09)
[2024-05-08] MEDS: LORazepam 2 MG/ML 1ML VIAL IV ONE (21:09)
[2024-05-08] MEDS ORDERED: ISOVUE-370 76% 100ML VIAL As Ordered ONE (21:37)
[2024-05-08 21:41] LABS: HEMATOCRIT 22.8 % (42.0-52.0); HEMOGLOBIN 7.4 g/dl (13.5-17.5)
[2024-05-08] MEDS: dexAMETHasone 20MG/5ML VIAL IV ONE (22:11)
[2024-05-09] VITALS (12 sets, daily range): BP systolic 104–174; BP diastolic 61–99; TEMP 97–98.6; O2SAT 12–100
[2024-05-09 04:34] LABS: BASO % 0.1 % (0.0-1.0); LYMPH # 0.7 10^3/uL (1.5-5.0); LYMPH % 6.1 % (24.0-44.0); MEAN CORPUSCULAR HEMOGLOBIN 30.6 pg (27.0-33.0); MEAN CORPUSCULAR HGB CONC 33.5 g/dl (32.0-36.5); MEAN CORPUSCULAR VOLUME 91.3 fl (80.0-96.0); MONO # 0.8 10^3/uL (0.0-0.8); MONO % 6.6 % (2.0-8.0); NEUTROPHILS # 10.2 10^3/uL (1.5-8.5); NEUTROPHILS % 86.2 % (36.0-66.0); PLATELET COUNT, AUTOMATED 153 10^3/uL (150-450); RED BLOOD COUNT 2.19 10^6/uL (4.30-6.10); WHITE BLOOD COUNT 11.9 10^3/uL (4.0-10.0)
[2024-05-09 04:37] LABS: HEMOGLOBIN 6.7 g/dl (13.5-17.5)
[2024-05-09 05:30] LABS: ALBUMIN 2.2 G/DL (3.2-5.2); ALKALINE PHOSPHATASE 88 U/L (40-129); ALT/SGPT 32 U/L (7.0-40); AST/SGOT 32 U/L (<34); BILIRUBIN,TOTAL 0.8 MG/DL (0.3-1.2); BLOOD UREA NITROGEN 10 MG/DL (9-23); CALCIUM LEVEL 8.1 MG/DL (8.5-10.1); CARBON DIOXIDE LEVEL 22 MMOL/L (20-31); CHLORIDE LEVEL 115 MMOL/L (98-107); GLOMERULAR FILTRATION RATE > 60.0 (>60); GLUCOSE, FASTING 134 MG/DL (60-100); POTASSIUM SERUM 3.3 MMOL/L (3.5-5.1); SODIUM LEVEL 141 MMOL/L (136-145); TOTAL PROTEIN 5.3 G/DL (5.7-8.2)
[2024-05-09] MEDS ORDERED: CEFEPIME HCL 2 GM in DEXTROSE 5% (D5W) ADV/MINI-BAG 50 ML IV SCH (09:00)
[2024-05-09] MEDS: KCL 10MEQ/100ML SWI (KRUN) 10 MEQ in IV 1 EA IV SCH (10:09)
[2024-05-09 11:55] LABS: HEMATOCRIT 27.9 % (42.0-52.0); MEAN CORPUSCULAR HEMOGLOBIN 30.6 pg (27.0-33.0); MEAN CORPUSCULAR VOLUME 92.7 fl (80.0-96.0); PLATELET COUNT, AUTOMATED 170 10^3/uL (150-450); RED BLOOD COUNT 3.01 10^6/uL (4.30-6.10); WHITE BLOOD COUNT 14.6 10^3/uL (4.0-10.0)
[2024-05-09 11:59] LABS: HEMOGLOBIN 9.2 g/dl (13.5-17.5)
[2024-05-09] MEDS: D5W/0.45% SODIUM CHLORIDE 1,000 ML IV SCH (12:33)
[2024-05-10] VITALS (8 sets, daily range): BP systolic 138–177; BP diastolic 76–98; TEMP 97.6–99; O2SAT 97–100
[2024-05-10] MEDS: SIMETHICONE 80MG CHEW TAB PO ONE (01:28)
[2024-05-10] MEDS: IPRATROPIUM 0.5MG/ALBUTEROL 2.5MG INH SOL UD 3ML (DUONEB) NEB ONE (02:58)
[2024-05-10 07:04] LABS: BASO % 0.1 % (0.0-1.0); EOS % 0.1 % (0.0-3.0); HEMOGLOBIN 8.2 g/dl (13.5-17.5); LYMPH % 11.5 % (24.0-44.0); MEAN CORPUSCULAR HEMOGLOBIN 30.8 pg (27.0-33.0); MEAN CORPUSCULAR HGB CONC 32.8 g/dl (32.0-36.5); MONO # 1.7 10^3/uL (0.0-0.8); MONO % 9.3 % (2.0-8.0); NEUTROPHILS # 13.4 10^3/uL (1.5-8.5); PLATELET COUNT, AUTOMATED 220 10^3/uL (150-450); RED BLOOD COUNT 2.66 10^6/uL (4.30-6.10); WHITE BLOOD COUNT 17.8 10^3/uL (4.0-10.0)
[2024-05-10 07:46] LABS: ALBUMIN 2.3 G/DL (3.2-5.2); ALKALINE PHOSPHATASE 94 U/L (40-129); ALT/SGPT 29 U/L (7.0-40); AST/SGOT 18 U/L (<34); BILIRUBIN,TOTAL 0.5 MG/DL (0.3-1.2); BLOOD UREA NITROGEN 11 MG/DL (9-23); CALCIUM LEVEL 8.8 MG/DL (8.5-10.1); CARBON DIOXIDE LEVEL 20 MMOL/L (20-31); CHLORIDE LEVEL 115 MMOL/L (98-107); CREATININE FOR GFR 0.42 MG/DL (0.70-1.30); GLOMERULAR FILTRATION RATE > 60.0 (>60); GLUCOSE, FASTING 72 MG/DL (60-100); POTASSIUM SERUM 3.7 MMOL/L (3.5-5.1); SODIUM LEVEL 144 MMOL/L (136-145); TOTAL PROTEIN 5.6 G/DL (5.7-8.2)
[2024-05-10] MEDS: DULoxetine 30MG CAPSULE (CYMBALTA) PO SCH (09:00)
[2024-05-10] MEDS: lisinopriL 5 MG TAB PO SCH (09:37)
[2024-05-10] MEDS: PERCOCET 5MG/325MG TAB PO PRN ×2 (09:45→15:04)
[2024-05-10] MEDS ORDERED: ACETAMINOPHEN *IV* 1,000 MG in IV 1 EA IV PRN (10:50)
[2024-05-10] MEDS: D5W/0.45% SODIUM CHLORIDE 1,000 ML IV SCH (13:37)
[2024-05-10] MEDS: KETOROLAC 30 MG/ML 1ML VIAL IV SCH (13:37)
[2024-05-10 13:40] LABS: HEMATOCRIT 27.5 % (42.0-52.0); HEMOGLOBIN 8.7 g/dl (13.5-17.5)
[2024-05-10] MEDS: GABAPENTIN 100 MG CAP PO SCH (16:10)
[2024-05-10] MEDS: HYDROMORPHONE HCL 0.5 MG/ 0.5 ML SYRINGE IV PRN ×2 (18:04→22:51)
[2024-05-10] MEDS: AMITRIPTYLINE 50 MG TAB PO SCH (20:13)
[2024-05-11] VITALS (7 sets, daily range): BP systolic 112–145; BP diastolic 68–89; TEMP 97.8–98.5; O2SAT 93–100
[2024-05-11 05:44] LABS: HEMATOCRIT 24.9 % (42.0-52.0); MEAN CORPUSCULAR HEMOGLOBIN 30.7 pg (27.0-33.0); MEAN CORPUSCULAR HGB CONC 32.1 g/dl (32.0-36.5); MEAN CORPUSCULAR VOLUME 95.4 fl (80.0-96.0); PLATELET COUNT, AUTOMATED 224 10^3/uL (150-450); RED BLOOD COUNT 2.61 10^6/uL (4.30-6.10); WHITE BLOOD COUNT 12.6 10^3/uL (4.0-10.0)
[2024-05-11 06:11] LABS: ALBUMIN 2.1 G/DL (3.2-5.2); ALKALINE PHOSPHATASE 102 U/L (40-129); ALT/SGPT 22 U/L (7.0-40); AST/SGOT 15 U/L (<34); BILIRUBIN,TOTAL 0.3 MG/DL (0.3-1.2); BLOOD UREA NITROGEN 8 MG/DL (9-23); CALCIUM LEVEL 8.5 MG/DL (8.5-10.1); CARBON DIOXIDE LEVEL 23 MMOL/L (20-31); CHLORIDE LEVEL 111 MMOL/L (98-107); CREATININE FOR GFR 0.37 MG/DL (0.70-1.30); GLOMERULAR FILTRATION RATE > 60.0 (>60); GLUCOSE, FASTING 105 MG/DL (60-100); POTASSIUM SERUM 3.5 MMOL/L (3.5-5.1); SODIUM LEVEL 144 MMOL/L (136-145); TOTAL PROTEIN 5.2 G/DL (5.7-8.2)
[2024-05-11] MEDS: FUROSEMIDE 20MG/2ML VIAL IV ONE (09:42)
[2024-05-12 00:02] VITALS: BP 131/79; TEMP 97; O2SAT 98
[2024-05-12 04:36] VITALS: BP 118/83; TEMP 97.9; O2SAT 99
[2024-05-12 06:02] LABS: HEMATOCRIT 27.9 % (42.0-52.0); HEMOGLOBIN 8.8 g/dl (13.5-17.5); MEAN CORPUSCULAR HEMOGLOBIN 30.6 pg (27.0-33.0); MEAN CORPUSCULAR HGB CONC 31.5 g/dl (32.0-36.5); MEAN CORPUSCULAR VOLUME 96.9 fl (80.0-96.0); PLATELET COUNT, AUTOMATED 257 10^3/uL (150-450); RED BLOOD COUNT 2.88 10^6/uL (4.30-6.10); WHITE BLOOD COUNT 10.6 10^3/uL (4.0-10.0)
[2024-05-12 06:29] LABS: BLOOD UREA NITROGEN < 5 MG/DL (9-23); CALCIUM LEVEL 8.4 MG/DL (8.5-10.1); CARBON DIOXIDE LEVEL 26 MMOL/L (20-31); CHLORIDE LEVEL 111 MMOL/L (98-107); CREATININE FOR GFR 0.36 MG/DL (0.70-1.30); GLOMERULAR FILTRATION RATE > 60.0 (>60); GLUCOSE, FASTING 113 MG/DL (60-100); MAGNESIUM LEVEL 1.6 MG/DL (1.8-2.4); POTASSIUM SERUM 3.3 MMOL/L (3.5-5.1); SODIUM LEVEL 143 MMOL/L (136-145)
[2024-05-12] MEDS ORDERED: POTASSIUM CHLORIDE 10MEQ SR TABLET PO ONE (07:25)
[2024-05-12 08:00] VITALS: BP 116/83; TEMP 98.1; O2SAT 95
[2024-05-12] MEDS: MAG SULF 1GM/100ML (MAG RUN) 1 GM in IV 1 EA IV SCH (08:31)
[2024-05-12] MEDS: POTASSIUM CHLORIDE 10% LIQ 20MEQ/15ML UDC PO ONE (09:46)
[2024-05-12 12:00] VITALS: BP 150/84; TEMP 97.9; O2SAT 95
[2024-05-12] MEDS: FUROSEMIDE 20MG/2ML VIAL IV ONE (13:29)
[2024-05-12 16:00] VITALS: BP 140/78; TEMP 97.7; O2SAT 96
[2024-05-12 17:55] LABS: BLOOD UREA NITROGEN < 5 MG/DL (9-23); CALCIUM LEVEL 8.6 MG/DL (8.5-10.1); CARBON DIOXIDE LEVEL 25 MMOL/L (20-31); CHLORIDE LEVEL 110 MMOL/L (98-107); CREATININE FOR GFR 0.34 MG/DL (0.70-1.30); GLOMERULAR FILTRATION RATE > 60.0 (>60); GLUCOSE, FASTING 104 MG/DL (60-100); POTASSIUM SERUM 4.1 MMOL/L (3.5-5.1); SODIUM LEVEL 143 MMOL/L (136-145)
[2024-05-12 19:34] VITALS: BP 148/91; TEMP 97.9; O2SAT 95
[2024-05-12] MEDS: AUGMENTIN 875 MG TAB PO SCH (20:13)
[2024-05-13] VITALS (9 sets, daily range): BP systolic 120–173; BP diastolic 70–107; TEMP 97.2–98.6; O2SAT 94–98
[2024-05-13 04:56] LABS: HEMOGLOBIN 9.9 g/dl (13.5-17.5); MEAN CORPUSCULAR HEMOGLOBIN 30.7 pg (27.0-33.0); MEAN CORPUSCULAR HGB CONC 31.9 g/dl (32.0-36.5); MEAN CORPUSCULAR VOLUME 96.3 fl (80.0-96.0); PLATELET COUNT, AUTOMATED 349 10^3/uL (150-450); RED BLOOD COUNT 3.22 10^6/uL (4.30-6.10); WHITE BLOOD COUNT 12.9 10^3/uL (4.0-10.0)
[2024-05-13 05:23] LABS: BLOOD UREA NITROGEN < 5 MG/DL (9-23); CALCIUM LEVEL 8.6 MG/DL (8.5-10.1); CARBON DIOXIDE LEVEL 26 MMOL/L (20-31); CHLORIDE LEVEL 111 MMOL/L (98-107); CREATININE FOR GFR 0.39 MG/DL (0.70-1.30); GLOMERULAR FILTRATION RATE > 60.0 (>60); GLUCOSE, FASTING 86 MG/DL (60-100); POTASSIUM SERUM 3.9 MMOL/L (3.5-5.1); SODIUM LEVEL 144 MMOL/L (136-145)
[2024-05-13] MEDS: FUROSEMIDE 20MG/2ML VIAL IV ONE (08:40)
[2024-05-13] MEDS ORDERED: LABETALOL 100MG TAB PO SCH (16:00)
[2024-05-13] MEDS: LABETALOL 100MG TAB PO ONE (16:46)
[2024-05-13] MEDS: HYDROMORPHONE HCL 0.5 MG/ 0.5 ML SYRINGE IV PRN (20:39)
[2024-05-14 04:00] VITALS: BP 152/101; TEMP 98.4; O2SAT 96
[2024-05-14 06:46] LABS: HEMOGLOBIN 9.1 g/dl (13.5-17.5); MEAN CORPUSCULAR HEMOGLOBIN 30.6 pg (27.0-33.0); MEAN CORPUSCULAR HGB CONC 31.4 g/dl (32.0-36.5); MEAN CORPUSCULAR VOLUME 97.6 fl (80.0-96.0); PLATELET COUNT, AUTOMATED 382 10^3/uL (150-450); RED BLOOD COUNT 2.97 10^6/uL (4.30-6.10); WHITE BLOOD COUNT 14.7 10^3/uL (4.0-10.0)
[2024-05-14 07:23] LABS: BLOOD UREA NITROGEN < 5 MG/DL (9-23); CALCIUM LEVEL 8.6 MG/DL (8.5-10.1); CARBON DIOXIDE LEVEL 28 MMOL/L (20-31); CHLORIDE LEVEL 108 MMOL/L (98-107); CREATININE FOR GFR 0.38 MG/DL (0.70-1.30); GLOMERULAR FILTRATION RATE > 60.0 (>60); GLUCOSE, FASTING 85 MG/DL (60-100); POTASSIUM SERUM 3.7 MMOL/L (3.5-5.1); SODIUM LEVEL 146 MMOL/L (136-145)
[2024-05-14 08:00] VITALS: O2SAT 92
[2024-05-14] MEDS: LABETALOL 100MG TAB PO SCH (09:00)
[2024-05-14 11:22] LABS: PROCALCITONIN 0.36 ng/ml
[2024-05-14 11:30] VITALS: BP 131/101; TEMP 98.2; O2SAT 93
[2024-05-14] MEDS: FUROSEMIDE 20MG/2ML VIAL IV ONE (14:50)
[2024-05-14 20:00] VITALS: BP 131/86; TEMP 98.1; O2SAT 91
[2024-05-14] MEDS ORDERED: ACETAMINOPHEN 500 MG TAB PO PRN (21:05)
[2024-05-15] MEDS: oxyCODONE 5MG TAB PO PRN (02:06)
[2024-05-15 05:22] LABS: HEMATOCRIT 30.7 % (42.0-52.0); HEMOGLOBIN 9.4 g/dl (13.5-17.5); MEAN CORPUSCULAR HEMOGLOBIN 30.4 pg (27.0-33.0); MEAN CORPUSCULAR HGB CONC 30.6 g/dl (32.0-36.5); MEAN CORPUSCULAR VOLUME 99.4 fl (80.0-96.0); PLATELET COUNT, AUTOMATED 442 10^3/uL (150-450); RED BLOOD COUNT 3.09 10^6/uL (4.30-6.10); WHITE BLOOD COUNT 15.5 10^3/uL (4.0-10.0)
[2024-05-15 05:47] LABS: BLOOD UREA NITROGEN < 5 MG/DL (9-23); CALCIUM LEVEL 8.4 MG/DL (8.5-10.1); CARBON DIOXIDE LEVEL 31 MMOL/L (20-31); CHLORIDE LEVEL 104 MMOL/L (98-107); CREATININE FOR GFR 0.39 MG/DL (0.70-1.30); GLOMERULAR FILTRATION RATE > 60.0 (>60); GLUCOSE, FASTING 88 MG/DL (60-100); POTASSIUM SERUM 3.7 MMOL/L (3.5-5.1); SODIUM LEVEL 142 MMOL/L (136-145)
[2024-05-15 08:10] VITALS: BP 98/68
[2024-05-15 12:00] VITALS: BP 114/87; TEMP 98.4; O2SAT 90
[2024-05-15 20:00] VITALS: BP 120/93; TEMP 98.2; O2SAT 90
[2024-05-15] MEDS: CEFDINIR 300 MG CAP (OMNICEF) PO SCH (20:36)
[2024-05-15] MEDS: PERCOCET 5MG/325MG TAB PO PRN (20:38)
[2024-05-16] VITALS (8 sets, daily range): BP systolic 94–148; BP diastolic 73–98; TEMP 98.2–98.8; O2SAT 88–94
[2024-05-16 04:58] LABS: HEMATOCRIT 31.3 % (42.0-52.0); HEMOGLOBIN 9.5 g/dl (13.5-17.5); MEAN CORPUSCULAR HEMOGLOBIN 30.7 pg (27.0-33.0); MEAN CORPUSCULAR HGB CONC 30.4 g/dl (32.0-36.5); MEAN CORPUSCULAR VOLUME 101.3 fl (80.0-96.0); PLATELET COUNT, AUTOMATED 481 10^3/uL (150-450); RED BLOOD COUNT 3.09 10^6/uL (4.30-6.10); WHITE BLOOD COUNT 14.7 10^3/uL (4.0-10.0)
[2024-05-16 05:23] LABS: BLOOD UREA NITROGEN < 5 MG/DL (9-23); CALCIUM LEVEL 9.1 MG/DL (8.5-10.1); CARBON DIOXIDE LEVEL 33 MMOL/L (20-31); CHLORIDE LEVEL 104 MMOL/L (98-107); CREATININE FOR GFR 0.41 MG/DL (0.70-1.30); GLOMERULAR FILTRATION RATE > 60.0 (>60); GLUCOSE, FASTING 106 MG/DL (60-100); POTASSIUM SERUM 3.7 MMOL/L (3.5-5.1); SODIUM LEVEL 144 MMOL/L (136-145)
[2024-05-16 13:31] LABS: LDH LACTATE DEHYDROGENASE 173 U/L (120-246)
[2024-05-16 15:06] LABS: ALBUMIN 2.1 G/DL (3.2-5.2); TOTAL PROTEIN 5.9 G/DL (5.7-8.2)
[2024-05-16] MEDS: cefTRIAXone SOD 2 GM in DEXTROSE 5% (D5W) ADV/MINI-BAG 50 ML IV SCH (20:32)
[2024-05-17] VITALS (8 sets, daily range): BP systolic 125–141; BP diastolic 80–94; TEMP 98.1–98.2; O2SAT 86–95
[2024-05-17] MEDS: ALBUTEROL 90 MCG/ACT 8GM HFA INHALER INH PRN (00:44)
[2024-05-17 05:51] LABS: HEMATOCRIT 28.9 % (42.0-52.0); HEMOGLOBIN 8.8 g/dl (13.5-17.5); MEAN CORPUSCULAR HEMOGLOBIN 30.6 pg (27.0-33.0); MEAN CORPUSCULAR HGB CONC 30.4 g/dl (32.0-36.5); MEAN CORPUSCULAR VOLUME 100.3 fl (80.0-96.0); PLATELET COUNT, AUTOMATED 497 10^3/uL (150-450); RED BLOOD COUNT 2.88 10^6/uL (4.30-6.10); WHITE BLOOD COUNT 14.1 10^3/uL (4.0-10.0)
[2024-05-17 06:18] LABS: MAGNESIUM LEVEL 1.4 MG/DL (1.8-2.4)
[2024-05-17 06:23] LABS: ALKALINE PHOSPHATASE 121 U/L (40-129); ALT/SGPT 11 U/L (7.0-40); AST/SGOT 9 U/L (<34); BILIRUBIN,TOTAL 0.2 MG/DL (0.3-1.2); BLOOD UREA NITROGEN < 5 MG/DL (9-23); CALCIUM LEVEL 8.7 MG/DL (8.5-10.1); CARBON DIOXIDE LEVEL 35 MMOL/L (20-31); CHLORIDE LEVEL 105 MMOL/L (98-107); CREATININE FOR GFR 0.39 MG/DL (0.70-1.30); GLOMERULAR FILTRATION RATE > 60.0 (>60); GLUCOSE, FASTING 97 MG/DL (60-100); POTASSIUM SERUM 3.7 MMOL/L (3.5-5.1); SODIUM LEVEL 144 MMOL/L (136-145); TOTAL PROTEIN 5.6 G/DL (5.7-8.2)
[2024-05-17 06:27] LABS: PROCALCITONIN 0.26 ng/ml
[2024-05-17] MEDS: MOM 30ML SUSPENSION UDC PO ONE (08:54)
[2024-05-17] MEDS: metroNIDAZOLE 500 MG in IV 1 EA IV SCH (09:04)
[2024-05-17] MEDS: MAG SULF 1GM/100ML (MAG RUN) 1 GM in IV 1 EA IV SCH (10:19)
[2024-05-17 14:40] LABS: C REACTIVE PROTEIN QUANTITATIV 17.3 MG/DL (<1.0)
[2024-05-18] VITALS (20 sets, daily range): BP systolic 103–144; BP diastolic 69–91; TEMP 97.7–98.6; O2SAT 85–98
[2024-05-18 06:20] LABS: HEMATOCRIT 29.5 % (42.0-52.0); HEMOGLOBIN 8.9 g/dl (13.5-17.5); MEAN CORPUSCULAR HEMOGLOBIN 30.6 pg (27.0-33.0); MEAN CORPUSCULAR HGB CONC 30.2 g/dl (32.0-36.5); MEAN CORPUSCULAR VOLUME 101.4 fl (80.0-96.0); PLATELET COUNT, AUTOMATED 580 10^3/uL (150-450); RED BLOOD COUNT 2.91 10^6/uL (4.30-6.10); WHITE BLOOD COUNT 13.9 10^3/uL (4.0-10.0)
[2024-05-18 06:52] LABS: BLOOD UREA NITROGEN < 5 MG/DL (9-23); CALCIUM LEVEL 8.4 MG/DL (8.5-10.1); CARBON DIOXIDE LEVEL 33 MMOL/L (20-31); CHLORIDE LEVEL 105 MMOL/L (98-107); CREATININE FOR GFR 0.38 MG/DL (0.70-1.30); GLOMERULAR FILTRATION RATE > 60.0 (>60); GLUCOSE, FASTING 99 MG/DL (60-100); POTASSIUM SERUM 3.8 MMOL/L (3.5-5.1); SODIUM LEVEL 143 MMOL/L (136-145)
[2024-05-18] MEDS: MIRALAX *UNIT DOSE* 17GM PACKET PO SCH (08:08)
[2024-05-18 08:21] LABS: MAGNESIUM LEVEL 2.1 MG/DL (1.8-2.4)
[2024-05-18] MEDS: KETOCONAZOLE 2% CREAM TOP SCH (12:30)
[2024-05-18] MEDS: HYDROCORTISONE 1% CREAM 30GM TOP SCH (12:30)
[2024-05-18] MEDS: MEROPENEM INJ 1 GM in IV 1 EA IV SCH (12:39)
[2024-05-18] MEDS: LINEZOLID 600MG TABLET (ZYVOX) PO SCH (21:35)
[2024-05-19 03:57] VITALS: BP 107/72; TEMP 98.6; O2SAT 95
[2024-05-19 06:21] LABS: HEMATOCRIT 29.4 % (42.0-52.0); HEMOGLOBIN 8.7 g/dl (13.5-17.5); MEAN CORPUSCULAR HEMOGLOBIN 29.8 pg (27.0-33.0); MEAN CORPUSCULAR HGB CONC 29.6 g/dl (32.0-36.5); MEAN CORPUSCULAR VOLUME 100.7 fl (80.0-96.0); PLATELET COUNT, AUTOMATED 599 10^3/uL (150-450); RED BLOOD COUNT 2.92 10^6/uL (4.30-6.10); WHITE BLOOD COUNT 14.6 10^3/uL (4.0-10.0)
[2024-05-19 07:00] LABS: BLOOD UREA NITROGEN < 5 MG/DL (9-23); CALCIUM LEVEL 8.4 MG/DL (8.5-10.1); CARBON DIOXIDE LEVEL 33 MMOL/L (20-31); CHLORIDE LEVEL 104 MMOL/L (98-107); CREATININE FOR GFR 0.38 MG/DL (0.70-1.30); GLOMERULAR FILTRATION RATE > 60.0 (>60); GLUCOSE, FASTING 79 MG/DL (60-100); SODIUM LEVEL 142 MMOL/L (136-145)
[2024-05-19] MEDS ORDERED: LINEZOLID 600 MG in IV 1 EA IV SCH (10:45)
[2024-05-19] MEDS: LINEZOLID 600MG TABLET (ZYVOX) PO SCH (13:11)
[2024-05-19 20:00] VITALS: BP 120/81; TEMP 98.2; O2SAT 94
[2024-05-20 00:14] VITALS: O2SAT 95
[2024-05-20 04:17] VITALS: BP 103/65; TEMP 98.2; O2SAT 96
[2024-05-20 08:12] LABS: BASO # 0.1 10^3/uL (0.0-0.2); BASO % 0.5 % (0.0-1.0); EOS # 0.3 10^3/uL (0.0-0.5); EOS % 2.2 % (0.0-3.0); HEMATOCRIT 30.8 % (42.0-52.0); LYMPH % 14.8 % (24.0-44.0); MEAN CORPUSCULAR HEMOGLOBIN 29.8 pg (27.0-33.0); MEAN CORPUSCULAR HGB CONC 29.2 g/dl (32.0-36.5); MONO % 7.4 % (2.0-8.0); NEUTROPHILS # 9.7 10^3/uL (1.5-8.5); NEUTROPHILS % 73.2 % (36.0-66.0); PLATELET COUNT, AUTOMATED 601 10^3/uL (150-450); RED BLOOD COUNT 3.02 10^6/uL (4.30-6.10); WHITE BLOOD COUNT 13.3 10^3/uL (4.0-10.0)
[2024-05-20 08:40] LABS: BLOOD UREA NITROGEN < 5 MG/DL (9-23); CALCIUM LEVEL 8.3 MG/DL (8.5-10.1); CARBON DIOXIDE LEVEL 30 MMOL/L (20-31); CHLORIDE LEVEL 103 MMOL/L (98-107); CREATININE FOR GFR 0.41 MG/DL (0.70-1.30); GLOMERULAR FILTRATION RATE > 60.0 (>60); GLUCOSE, FASTING 64 MG/DL (60-100); POTASSIUM SERUM 4.1 MMOL/L (3.5-5.1); SODIUM LEVEL 140 MMOL/L (136-145)
[2024-05-20 08:43] VITALS: O2SAT 98
[2024-05-20 09:16] VITALS: O2SAT 90
[2024-05-20 10:44] LABS: MAGNESIUM LEVEL 1.6 MG/DL (1.8-2.4)
[2024-05-20 10:46] LABS: PERCENT SATURATION 19.5 % (19.7-50.0)
[2024-05-20 10:48] LABS: FERRITIN 465.4 NG/ML (10.5-307.3); FOLATE 15.99 NG/ML (>5.4)
[2024-05-20 12:00] VITALS: BP 106/74; TEMP 98.2; O2SAT 96
[2024-05-20] MEDS: ENOXAPARIN 40MG/0.4ML SYRINGE (J1650 PER 10MG) SC SCH (14:16)
[2024-05-20 20:23] VITALS: BP 116/81; TEMP 98.8; O2SAT 95
[2024-05-21] VITALS (11 sets, daily range): BP systolic 101–114; BP diastolic 68–80; TEMP 98.1–99; O2SAT 90–97
[2024-05-21 05:16] LABS: BASO # 0.1 10^3/uL (0.0-0.2); BASO % 0.7 % (0.0-1.0); EOS # 0.3 10^3/uL (0.0-0.5); EOS % 2.4 % (0.0-3.0); HEMATOCRIT 30.5 % (42.0-52.0); HEMOGLOBIN 9.1 g/dl (13.5-17.5); LYMPH % 15.6 % (24.0-44.0); MEAN CORPUSCULAR HEMOGLOBIN 29.8 pg (27.0-33.0); MEAN CORPUSCULAR HGB CONC 29.8 g/dl (32.0-36.5); MONO # 1.2 10^3/uL (0.0-0.8); MONO % 9.7 % (2.0-8.0); NEUTROPHILS # 8.9 10^3/uL (1.5-8.5); NEUTROPHILS % 69.8 % (36.0-66.0); PLATELET COUNT, AUTOMATED 641 10^3/uL (150-450); RED BLOOD COUNT 3.05 10^6/uL (4.30-6.10); WHITE BLOOD COUNT 12.7 10^3/uL (4.0-10.0)
[2024-05-21 05:46] LABS: BLOOD UREA NITROGEN < 5 MG/DL (9-23); CALCIUM LEVEL 8.1 MG/DL (8.5-10.1); CARBON DIOXIDE LEVEL 32 MMOL/L (20-31); CHLORIDE LEVEL 103 MMOL/L (98-107); CREATININE FOR GFR 0.44 MG/DL (0.70-1.30); GLOMERULAR FILTRATION RATE > 60.0 (>60); GLUCOSE, FASTING 83 MG/DL (60-100); MAGNESIUM LEVEL 1.6 MG/DL (1.8-2.4); POTASSIUM SERUM 4.4 MMOL/L (3.5-5.1); SODIUM LEVEL 140 MMOL/L (136-145)
[2024-05-21] MEDS: MAGNESIUM GLUCONATE 500 MG TAB PO SCH (08:33)
[2024-05-21] MEDS: MAG SULF 1GM/100ML (MAG RUN) 1 GM in IV 1 EA IV SCH (08:35)
[2024-05-21 17:57] LABS: URINE STREP PNEUMONIAE ANTIGEN NOT DETECTED (NOT DETECT)
[2024-05-22] VITALS (16 sets, daily range): BP systolic 97–123; BP diastolic 72–79; TEMP 98.1; O2SAT 79–97
[2024-05-22 04:54] LABS: BASO # 0.1 10^3/uL (0.0-0.2); BASO % 0.5 % (0.0-1.0); EOS # 0.4 10^3/uL (0.0-0.5); EOS % 3.9 % (0.0-3.0); HEMATOCRIT 31.5 % (42.0-52.0); HEMOGLOBIN 9.5 g/dl (13.5-17.5); LYMPH # 1.9 10^3/uL (1.5-5.0); LYMPH % 19.4 % (24.0-44.0); MEAN CORPUSCULAR HEMOGLOBIN 30.2 pg (27.0-33.0); MEAN CORPUSCULAR HGB CONC 30.2 g/dl (32.0-36.5); MONO # 1.2 10^3/uL (0.0-0.8); NEUTROPHILS % 62.4 % (36.0-66.0); PLATELET COUNT, AUTOMATED 677 10^3/uL (150-450); RED BLOOD COUNT 3.15 10^6/uL (4.30-6.10); WHITE BLOOD COUNT 9.6 10^3/uL (4.0-10.0)
[2024-05-22 05:13] LABS: BLOOD UREA NITROGEN < 5 MG/DL (9-23); CALCIUM LEVEL 8.7 MG/DL (8.5-10.1); CARBON DIOXIDE LEVEL 36 MMOL/L (20-31); CHLORIDE LEVEL 103 MMOL/L (98-107); CREATININE FOR GFR 0.43 MG/DL (0.70-1.30); GLOMERULAR FILTRATION RATE > 60.0 (>60); GLUCOSE, FASTING 86 MG/DL (60-100); POTASSIUM SERUM 4.5 MMOL/L (3.5-5.1); SODIUM LEVEL 141 MMOL/L (136-145)
[2024-05-22] MEDS: FUROSEMIDE 20MG/2ML VIAL IV ONE (11:15)
[2024-05-22] MEDS ORDERED: PILL CUTTER 1 EACH XX PRN (13:50)
[2024-05-22] MEDS: FUROSEMIDE 20 MG TAB PO ONE (13:50)
[2024-05-22] MEDS: PANTOPRAZOLE 40MG TAB (PROTONIX) PO SCH (21:24)
[2024-05-23 04:26] VITALS: BP 112/75; TEMP 98.2
[2024-05-23 05:25] LABS: BASO # 0.1 10^3/uL (0.0-0.2); BASO % 1.1 % (0.0-1.0); EOS # 0.5 10^3/uL (0.0-0.5); EOS % 5.5 % (0.0-3.0); HEMATOCRIT 32.7 % (42.0-52.0); HEMOGLOBIN 9.9 g/dl (13.5-17.5); LYMPH % 23.6 % (24.0-44.0); MEAN CORPUSCULAR HEMOGLOBIN 30.6 pg (27.0-33.0); MEAN CORPUSCULAR HGB CONC 30.3 g/dl (32.0-36.5); MEAN CORPUSCULAR VOLUME 100.9 fl (80.0-96.0); MONO # 0.9 10^3/uL (0.0-0.8); MONO % 10.1 % (2.0-8.0); NEUTROPHILS % 58.4 % (36.0-66.0); PLATELET COUNT, AUTOMATED 587 10^3/uL (150-450); RED BLOOD COUNT 3.24 10^6/uL (4.30-6.10); WHITE BLOOD COUNT 8.5 10^3/uL (4.0-10.0)
[2024-05-23 06:10] LABS: BLOOD UREA NITROGEN < 5 MG/DL (9-23); CALCIUM LEVEL 8.7 MG/DL (8.5-10.1); CARBON DIOXIDE LEVEL 34 MMOL/L (20-31); CHLORIDE LEVEL 101 MMOL/L (98-107); GLOMERULAR FILTRATION RATE > 60.0 (>60); GLUCOSE, FASTING 82 MG/DL (60-100); MAGNESIUM LEVEL 1.9 MG/DL (1.8-2.4); POTASSIUM SERUM 5.2 MMOL/L (3.5-5.1); SODIUM LEVEL 140 MMOL/L (136-145)
[2024-05-23 08:06] LABS: BLOOD UREA NITROGEN < 5 MG/DL (9-23); CALCIUM LEVEL 8.6 MG/DL (8.5-10.1); CARBON DIOXIDE LEVEL 35 MMOL/L (20-31); CHLORIDE LEVEL 101 MMOL/L (98-107); CREATININE FOR GFR 0.39 MG/DL (0.70-1.30); GLOMERULAR FILTRATION RATE > 60.0 (>60); GLUCOSE, FASTING 85 MG/DL (60-100); POTASSIUM SERUM 4.5 MMOL/L (3.5-5.1); SODIUM LEVEL 139 MMOL/L (136-145)
[2024-05-23 12:00] VITALS: BP 109/73; TEMP 97.9; O2SAT 94
[2024-05-23] MEDS: FUROSEMIDE 20 MG TAB PO ONE (15:28)
[2024-05-23 18:10] VITALS: BP 147/88; TEMP 99; O2SAT 95
[2024-05-23] MEDS: METOCLOPRAMIDE INJ 10MG/2ML VIAL IV SCH (18:44)
[2024-05-23 20:00] VITALS: BP 98/73; TEMP 98.2; O2SAT 96
[2024-05-23 20:38] VITALS: TEMP 99.1
[2024-05-24] VITALS (8 sets, daily range): BP systolic 98–139; BP diastolic 63–95; TEMP 97.9–99.3; O2SAT 91–97
[2024-05-24 06:31] LABS: BASO # 0.1 10^3/uL (0.0-0.2); BASO % 1.2 % (0.0-1.0); EOS # 0.5 10^3/uL (0.0-0.5); EOS % 5.4 % (0.0-3.0); HEMATOCRIT 34.4 % (42.0-52.0); HEMOGLOBIN 10.4 g/dl (13.5-17.5); LYMPH # 2.4 10^3/uL (1.5-5.0); LYMPH % 26.1 % (24.0-44.0); MEAN CORPUSCULAR HGB CONC 30.2 g/dl (32.0-36.5); MEAN CORPUSCULAR VOLUME 99.1 fl (80.0-96.0); MONO # 0.8 10^3/uL (0.0-0.8); MONO % 8.9 % (2.0-8.0); NEUTROPHILS # 5.3 10^3/uL (1.5-8.5); NEUTROPHILS % 57.3 % (36.0-66.0); PLATELET COUNT, AUTOMATED 640 10^3/uL (150-450); RED BLOOD COUNT 3.47 10^6/uL (4.30-6.10); WHITE BLOOD COUNT 9.2 10^3/uL (4.0-10.0)
[2024-05-24 06:47] LABS: BLOOD UREA NITROGEN < 5 MG/DL (9-23); CALCIUM LEVEL 9.2 MG/DL (8.5-10.1); CARBON DIOXIDE LEVEL 35 MMOL/L (20-31); CHLORIDE LEVEL 97 MMOL/L (98-107); GLOMERULAR FILTRATION RATE > 60.0 (>60); GLUCOSE, FASTING 75 MG/DL (60-100); MAGNESIUM LEVEL 1.8 MG/DL (1.8-2.4); POTASSIUM SERUM 4.6 MMOL/L (3.5-5.1); SODIUM LEVEL 138 MMOL/L (136-145)
[2024-05-24] MEDS: DOCUSATE SODIUM 100MG CAPSULE PO SCH (08:39)
[2024-05-24] MEDS: FUROSEMIDE 20 MG TAB PO ONE (16:33)
[2024-05-24 22:08] LABS: ALBUMIN 2.3 G/DL (3.2-5.2); ALKALINE PHOSPHATASE 108 U/L (40-129); ALT/SGPT < 9 U/L (7.0-40); AST/SGOT 11 U/L (<34); BILIRUBIN,TOTAL 0.2 MG/DL (0.3-1.2); BLOOD UREA NITROGEN 6 MG/DL (9-23); CALCIUM LEVEL 8.9 MG/DL (8.5-10.1); CARBON DIOXIDE LEVEL 32 MMOL/L (20-31); CHLORIDE LEVEL 99 MMOL/L (98-107); CREATININE FOR GFR 0.46 MG/DL (0.70-1.30); GLOMERULAR FILTRATION RATE > 60.0 (>60); GLUCOSE, FASTING 99 MG/DL (60-100); MAGNESIUM LEVEL 1.6 MG/DL (1.8-2.4); POTASSIUM SERUM 4.2 MMOL/L (3.5-5.1); SODIUM LEVEL 137 MMOL/L (136-145)
[2024-05-24] MEDS: MAG SULF 1GM/100ML (MAG RUN) 1 GM in IV 1 EA IV SCH (22:52)
[2024-05-25] VITALS (7 sets, daily range): BP systolic 102–141; BP diastolic 77–96; TEMP 97.6–98.3; O2SAT 92–99
[2024-05-25] MEDS: METOPROLOL TART 12.5 MG PER 1/2 TAB PO ONE (02:10)
[2024-05-25 06:20] LABS: BASO # 0.1 10^3/uL (0.0-0.2); BASO % 1.1 % (0.0-1.0); EOS # 0.5 10^3/uL (0.0-0.5); EOS % 4.2 % (0.0-3.0); HEMATOCRIT 35.7 % (42.0-52.0); LYMPH # 2.6 10^3/uL (1.5-5.0); LYMPH % 24.2 % (24.0-44.0); MEAN CORPUSCULAR HEMOGLOBIN 29.8 pg (27.0-33.0); MEAN CORPUSCULAR HGB CONC 30.8 g/dl (32.0-36.5); MEAN CORPUSCULAR VOLUME 96.7 fl (80.0-96.0); MONO # 0.9 10^3/uL (0.0-0.8); MONO % 8.7 % (2.0-8.0); NEUTROPHILS # 6.5 10^3/uL (1.5-8.5); NEUTROPHILS % 60.9 % (36.0-66.0); PLATELET COUNT, AUTOMATED 645 10^3/uL (150-450); RED BLOOD COUNT 3.69 10^6/uL (4.30-6.10); WHITE BLOOD COUNT 10.6 10^3/uL (4.0-10.0)
[2024-05-25 06:57] LABS: BLOOD UREA NITROGEN < 5 MG/DL (9-23); CALCIUM LEVEL 8.7 MG/DL (8.5-10.1); CARBON DIOXIDE LEVEL 34 MMOL/L (20-31); CHLORIDE LEVEL 98 MMOL/L (98-107); CREATININE FOR GFR 0.44 MG/DL (0.70-1.30); GLOMERULAR FILTRATION RATE > 60.0 (>60); GLUCOSE, FASTING 101 MG/DL (60-100); MAGNESIUM LEVEL 2.4 MG/DL (1.8-2.4); POTASSIUM SERUM 4.5 MMOL/L (3.5-5.1); SODIUM LEVEL 137 MMOL/L (136-145)
[2024-05-25] MEDS: LEVALBUTEROL 1.25MG 0.5ML CONCENTRATE NEB NEB SCH (08:00)
[2024-05-25] MEDS ORDERED: OXYC1TAB23 PO (10:28)
[2024-05-25] MEDS ORDERED: LABE100T6 PO (10:28)
[2024-05-25] MEDS ORDERED: MAGN50TA PO (10:28)
[2024-05-25] MEDS ORDERED: COLA100C5 PO (10:28)
[2024-05-25] MEDS ORDERED: FERR325T3 PO (10:38)
[2024-05-25] MEDS ORDERED: KETO2CR TOP (11:39)
[2024-05-25] MEDS ORDERED: HYDR1CR TOP (11:39)
== END 2024-05-25 15:18 | disposition home health service (06) | DRG 853 ==
LOC: EDBD 19:51 → M ED 20:44 → EEVIPCON 23:21 → M ED INP 23:21 → M ICU 05-07 05:32 → M MSPAV 05-13 17:28
PROVIDERS: ADMIT Student in an Organized Health Care Education/Training Program; ATTEND Internal Medicine
PROC: 30233N1 Transfusion of Nonautologous Red Blood Cells into Peripheral Vein, Percutaneous Approach (ICD-10-PCS; 2024-05-07)
PROC: 0DB80ZZ Excision of Small Intestine, Open Approach (ICD-10-PCS; 2024-05-07)
PROC: 0DTF0ZZ Resection of Right Large Intestine, Open Approach (ICD-10-PCS; 2024-05-07)
PROC: 0WQF0ZZ Repair Abdominal Wall, Open Approach (ICD-10-PCS; 2024-05-07)
PROC: 0DN80ZZ Release Small Intestine, Open Approach (ICD-10-PCS; 2024-05-07)
PROC: 0D1B0Z4 Bypass Ileum to Cutaneous, Open Approach (ICD-10-PCS; 2024-05-07)
PROC: 30233J1 Transfusion of Nonautologous Serum Albumin into Peripheral Vein, Percutaneous Approach (ICD-10-PCS; principal; 2024-05-07 12:30)
PROC: B246ZZZ Ultrasonography of Right and Left Heart (ICD-10-PCS; 2024-05-16)
DX: A41.9 Sepsis, unspecified organism (principal); R57.1 Hypovolemic shock; J18.9 Pneumonia, unspecified organism; R65.21 Severe sepsis with septic shock; R53.2 Functional quadriplegia; K43.3 Parastomal hernia with obstruction, without gangrene; N39.0 Urinary tract infection, site not specified; D62 Acute posthemorrhagic anemia; K55.9 Vascular disorder of intestine, unspecified; E78.5 Hyperlipidemia, unspecified; I95.9 Hypotension, unspecified; I10 Essential (primary) hypertension; E83.52 Hypercalcemia; J45.40 Moderate persistent asthma, uncomplicated; K21.9 Gastro-esophageal reflux disease without esophagitis; E83.42 Hypomagnesemia; E87.6 Hypokalemia; B96.1 Klebsiella pneumoniae [K. pneumoniae] as the cause of diseases classified elsewhere; M79.2 Neuralgia and neuritis, unspecified; F41.0 Panic disorder [episodic paroxysmal anxiety]; F32.A Depression, unspecified; Z79.899 Other long term (current) drug therapy; Z88.6 Allergy status to analgesic agent; Z88.0 Allergy status to penicillin; Z88.1 Allergy status to other antibiotic agents; Z88.8 Allergy status to other drugs, medicaments and biological substances; Z91.040 Latex allergy status

== ENCOUNTER 2024-06-04 18:47 | Inpatient (IN) | payer MEDICAID, MEDICARE, OTHER ==
[~2024-06-04] VITALS: Ht 149.9 cm; Wt 40.9 kg
[~2024-06-04 18:47] MED LIST changes: -HYDR1CRE30 TOP; -LABE100T40 PO
[2024-06-04 20:50] LABS: BASO # 0.2 10^3/uL (0.0-0.2); BASO % 0.6 % (0.0-1.0); EOS # 0.4 10^3/uL (0.0-0.5); EOS % 1.5 % (0.0-3.0); HEMATOCRIT 31.2 % (42.0-52.0); HEMOGLOBIN 9.9 g/dl (13.5-17.5); LYMPH # 3.1 10^3/uL (1.5-5.0); LYMPH % 11.2 % (24.0-44.0); MEAN CORPUSCULAR HEMOGLOBIN 29.7 pg (27.0-33.0); MEAN CORPUSCULAR HGB CONC 31.7 g/dl (32.0-36.5); MEAN CORPUSCULAR VOLUME 93.7 fl (80.0-96.0); MONO # 1.4 10^3/uL (0.0-0.8); MONO % 4.9 % (2.0-8.0); NEUTROPHILS # 21.6 10^3/uL (1.5-8.5); NEUTROPHILS % 77.4 % (36.0-66.0); PLATELET COUNT, AUTOMATED 649 10^3/uL (150-450); RED BLOOD COUNT 3.33 10^6/uL (4.30-6.10); WHITE BLOOD COUNT 27.9 10^3/uL (4.0-10.0)
[2024-06-04] MEDS: fentaNYL 100 MCG/2 ML INJECTION IV ONE (21:50)
[2024-06-04 22:40] LABS: LIPASE 34 U/L (12-53)
[2024-06-04 22:49] LABS: PROCALCITONIN 0.21 ng/ml
[2024-06-04 22:53] LABS: ALBUMIN 2.1 G/DL (3.2-5.2); ALKALINE PHOSPHATASE 157 U/L (40-129); ALT/SGPT 16 U/L (7.0-40); AST/SGOT 21 U/L (<34); BILIRUBIN,DIRECT < 0.1 MG/DL (<0.4); BILIRUBIN,TOTAL 0.2 MG/DL (0.3-1.2); BLOOD UREA NITROGEN 9 MG/DL (9-23); CALCIUM LEVEL 9.6 MG/DL (8.5-10.1); CARBON DIOXIDE LEVEL 25 MMOL/L (20-31); CHLORIDE LEVEL 102 MMOL/L (98-107); CREATININE FOR GFR 0.36 MG/DL (0.70-1.30); GLOMERULAR FILTRATION RATE > 60.0 (>60); GLUCOSE, FASTING 91 MG/DL (60-100); POTASSIUM SERUM 4.9 MMOL/L (3.5-5.1); SODIUM LEVEL 135 MMOL/L (136-145); TOTAL PROTEIN 7.4 G/DL (5.7-8.2)
[2024-06-04] MEDS ORDERED: ISOVUE-370 76% 100ML VIAL As Ordered ONE (23:14)
[2024-06-05] MEDS ORDERED: LABE100T40 PO (01:50)
[2024-06-05] MEDS ORDERED: HOME MED LIST COMPLETE! XX SCH (01:50)
[2024-06-05] MEDS ORDERED: HYDR1CRE30 TOP (01:50)
[2024-06-05] MEDS ORDERED: KETO2CR TOP (01:50)
[2024-06-05] MEDS: MEROPENEM INJ 2 GM in NS 100 ML IV ONE (02:50)
[2024-06-05] MEDS ORDERED: MORPHINE 2 MG/ML 1ML VIAL IV PRN (02:50)
[2024-06-05] MEDS: MORPHINE 2 MG/ML 1ML VIAL IV PRN ×2 (03:09→13:53)
[2024-06-05] MEDS: LR 1,000 ML IV SCH (03:31)
[2024-06-05] MEDS ORDERED: ALBUTEROL SULFATE 2.5MG/0.5ML INH NEB SOLN NEB PRN (03:50)
[2024-06-05 06:35] LABS: HEMATOCRIT 29.3 % (42.0-52.0); HEMOGLOBIN 9.1 g/dl (13.5-17.5); MEAN CORPUSCULAR HEMOGLOBIN 28.9 pg (27.0-33.0); MEAN CORPUSCULAR HGB CONC 31.1 g/dl (32.0-36.5); PLATELET COUNT, AUTOMATED 583 10^3/uL (150-450); RED BLOOD COUNT 3.15 10^6/uL (4.30-6.10); WHITE BLOOD COUNT 23.5 10^3/uL (4.0-10.0)
[2024-06-05 07:00] LABS: BLOOD UREA NITROGEN 7 MG/DL (9-23); CALCIUM LEVEL 9.1 MG/DL (8.5-10.1); CARBON DIOXIDE LEVEL 26 MMOL/L (20-31); CHLORIDE LEVEL 103 MMOL/L (98-107); CREATININE FOR GFR 0.38 MG/DL (0.70-1.30); GLOMERULAR FILTRATION RATE > 60.0 (>60); GLUCOSE, FASTING 93 MG/DL (60-100); POTASSIUM SERUM 4.4 MMOL/L (3.5-5.1); SODIUM LEVEL 136 MMOL/L (136-145)
[2024-06-05] MEDS: IPRATROPIUM 0.5MG/ALBUTEROL 2.5MG INH SOL UD 3ML (DUONEB) NEB SCH (08:09)
[2024-06-05] MEDS: FOLIC ACID 1MG TAB PO SCH (09:00)
[2024-06-05] MEDS ORDERED: ENOXAPARIN 40MG/0.4ML SYRINGE (J1650 PER 10MG) SC SCH (09:00)
[2024-06-05] MEDS: PANTOPRAZOLE 40MG VIAL IV SCH (10:31)
[2024-06-05] MEDS: MEROPENEM INJ 1 GM in IV 1 EA IV SCH (10:31)
[2024-06-05] MEDS: MORPHINE 2 MG/ML 1ML VIAL IV ONE (11:01)
[2024-06-05 12:07] VITALS: BP 132/83; TEMP 98.8; O2SAT 97
[2024-06-05 13:50] VITALS: BP 128/81
[2024-06-05] MEDS: LINEZOLID 600 MG in IV 1 EA IV SCH (14:11)
[2024-06-05] MEDS ORDERED: LIDOCAINE 1% MDV 20ML VIAL As Ordered ONE (14:57)
[2024-06-05] MEDS: ACETAMINOPHEN 325 MG TAB PO PRN (16:36)
[2024-06-05] MEDS: ONDANSETRON 4MG 2ML VIAL IV PRN (18:01)
[2024-06-05 20:00] VITALS: BP 115/76; TEMP 97.9; O2SAT 96
[2024-06-06] VITALS (7 sets, daily range): BP systolic 80–130; BP diastolic 53–84; TEMP 97.1–98.8; O2SAT 94–98
[2024-06-06 05:55] LABS: HEMATOCRIT 29.6 % (42.0-52.0); HEMOGLOBIN 9.1 g/dl (13.5-17.5); MEAN CORPUSCULAR HEMOGLOBIN 29.1 pg (27.0-33.0); MEAN CORPUSCULAR HGB CONC 30.7 g/dl (32.0-36.5); MEAN CORPUSCULAR VOLUME 94.6 fl (80.0-96.0); PLATELET COUNT, AUTOMATED 573 10^3/uL (150-450); RED BLOOD COUNT 3.13 10^6/uL (4.30-6.10); WHITE BLOOD COUNT 14.5 10^3/uL (4.0-10.0)
[2024-06-06 06:15] LABS: BLOOD UREA NITROGEN < 5 MG/DL (9-23); CALCIUM LEVEL 9.1 MG/DL (8.5-10.1); CARBON DIOXIDE LEVEL 29 MMOL/L (20-31); CHLORIDE LEVEL 101 MMOL/L (98-107); CREATININE FOR GFR 0.39 MG/DL (0.70-1.30); GLOMERULAR FILTRATION RATE > 60.0 (>60); GLUCOSE, FASTING 111 MG/DL (60-100); POTASSIUM SERUM 3.8 MMOL/L (3.5-5.1); SODIUM LEVEL 136 MMOL/L (136-145)
[2024-06-06] MEDS ORDERED: ALBUTEROL 90 MCG/ACT 8GM HFA INHALER INH PRN (07:30)
[2024-06-06] MEDS: KETOCONAZOLE 2% CREAM TOP SCH (08:52)
[2024-06-06] MEDS: HYDROCORTISONE 1% CREAM 30GM TOP SCH (08:52)
[2024-06-06] MEDS: PANTOPRAZOLE 40MG TAB (PROTONIX) PO SCH (08:53)
[2024-06-06] MEDS: GABAPENTIN 100 MG CAP PO SCH (08:53)
[2024-06-06] MEDS: LORATADINE 10 MG TAB PO SCH (08:53)
[2024-06-06] MEDS ORDERED: IPRATROPIUM 0.5MG/ALBUTEROL 2.5MG INH SOL UD 3ML (DUONEB) INH SCH (09:00)
[2024-06-06] MEDS: lisinopriL 5 MG TAB PO SCH (09:01)
[2024-06-06] MEDS: LABETALOL 200 MG TAB PO SCH (09:10)
[2024-06-06] MEDS ORDERED: ENOXAPARIN 40MG/0.4ML SYRINGE (J1650 PER 10MG) SC ONE (11:40)
[2024-06-06 14:07] LABS: BASO # 0.1 10^3/uL (0.0-0.2); BASO % 0.6 % (0.0-1.0); EOS # 0.5 10^3/uL (0.0-0.5); EOS % 2.6 % (0.0-3.0); HEMATOCRIT 28.4 % (42.0-52.0); HEMOGLOBIN 8.7 g/dl (13.5-17.5); LYMPH # 2.2 10^3/uL (1.5-5.0); LYMPH % 12.1 % (24.0-44.0); MEAN CORPUSCULAR HEMOGLOBIN 29.2 pg (27.0-33.0); MEAN CORPUSCULAR HGB CONC 30.6 g/dl (32.0-36.5); MEAN CORPUSCULAR VOLUME 95.3 fl (80.0-96.0); MONO % 5.4 % (2.0-8.0); NEUTROPHILS # 13.8 10^3/uL (1.5-8.5); NEUTROPHILS % 77.1 % (36.0-66.0); PLATELET COUNT, AUTOMATED 583 10^3/uL (150-450); RED BLOOD COUNT 2.98 10^6/uL (4.30-6.10)
[2024-06-06] MEDS: LR 1,000 ML IV STA (14:18)
[2024-06-06] MEDS: ENOXAPARIN 40MG/0.4ML SYRINGE (J1650 PER 10MG) SC SCH (14:54)
[2024-06-06] MEDS: LR 1,000 ML IV ONE (15:31)
[2024-06-07 02:39] VITALS: BP 120/71; TEMP 98.3; O2SAT 96
[2024-06-07 05:27] LABS: HEMATOCRIT 28.2 % (42.0-52.0); HEMOGLOBIN 8.8 g/dl (13.5-17.5); MEAN CORPUSCULAR HEMOGLOBIN 29.7 pg (27.0-33.0); MEAN CORPUSCULAR HGB CONC 31.2 g/dl (32.0-36.5); MEAN CORPUSCULAR VOLUME 95.3 fl (80.0-96.0); PLATELET COUNT, AUTOMATED 567 10^3/uL (150-450); RED BLOOD COUNT 2.96 10^6/uL (4.30-6.10); WHITE BLOOD COUNT 16.3 10^3/uL (4.0-10.0)
[2024-06-07 05:49] LABS: BLOOD UREA NITROGEN < 5 MG/DL (9-23); CARBON DIOXIDE LEVEL 31 MMOL/L (20-31); CHLORIDE LEVEL 102 MMOL/L (98-107); CREATININE FOR GFR 0.43 MG/DL (0.70-1.30); GLOMERULAR FILTRATION RATE > 60.0 (>60); GLUCOSE, FASTING 92 MG/DL (60-100); POTASSIUM SERUM 4.2 MMOL/L (3.5-5.1); SODIUM LEVEL 138 MMOL/L (136-145)
[2024-06-07 08:55] VITALS: BP 131/84
[2024-06-07 12:00] VITALS: BP 155/86; TEMP 98; O2SAT 97
[2024-06-07] MEDS: CHLORASEPTIC SPRAY MT PRN (14:09)
[2024-06-07 20:00] VITALS: BP 150/90; TEMP 98.6; O2SAT 92
[2024-06-07] MEDS ORDERED: CARVedilol 6.25 MG TAB PO SCH (21:00)
[2024-06-08 04:11] VITALS: BP 119/93; TEMP 98.4; O2SAT 91
[2024-06-08 05:38] LABS: HEMATOCRIT 31.6 % (42.0-52.0); HEMOGLOBIN 9.6 g/dl (13.5-17.5); MEAN CORPUSCULAR HEMOGLOBIN 29.3 pg (27.0-33.0); MEAN CORPUSCULAR HGB CONC 30.4 g/dl (32.0-36.5); MEAN CORPUSCULAR VOLUME 96.3 fl (80.0-96.0); PLATELET COUNT, AUTOMATED 609 10^3/uL (150-450); RED BLOOD COUNT 3.28 10^6/uL (4.30-6.10); WHITE BLOOD COUNT 15.9 10^3/uL (4.0-10.0)
[2024-06-08 06:03] LABS: BLOOD UREA NITROGEN < 5 MG/DL (9-23); CALCIUM LEVEL 9.2 MG/DL (8.5-10.1); CARBON DIOXIDE LEVEL 31 MMOL/L (20-31); CHLORIDE LEVEL 99 MMOL/L (98-107); CREATININE FOR GFR 0.39 MG/DL (0.70-1.30); GLOMERULAR FILTRATION RATE > 60.0 (>60); GLUCOSE, FASTING 108 MG/DL (60-100); POTASSIUM SERUM 4.5 MMOL/L (3.5-5.1); SODIUM LEVEL 137 MMOL/L (136-145)
[2024-06-08] MEDS: CARVedilol 6.25 MG TAB PO SCH (08:40)
[2024-06-08] MEDS ORDERED: lisinopriL 5 MG TAB PO SCH (09:00)
[2024-06-08 12:00] VITALS: BP 108/85; TEMP 97.5; O2SAT 90
[2024-06-08] MEDS: oxyCODONE 5MG TAB PO PRN (18:35)
[2024-06-08 20:00] VITALS: BP 130/97; TEMP 97.9; O2SAT 93
[2024-06-08] MEDS ORDERED: AUGMENTIN 500MG TAB PO SCH (21:00)
[2024-06-08] MEDS: CEFDINIR 300 MG CAP (OMNICEF) PO SCH (21:03)
[2024-06-08] MEDS: AUGMENTIN 875 MG TAB PO SCH (21:03)
[2024-06-08] MEDS: HYDROMORPHONE HCL 0.5 MG/ 0.5 ML SYRINGE IV ONE (22:07)
[2024-06-09] MEDS: KETOROLAC 30 MG/ML 1ML VIAL IV ONE (02:14)
[2024-06-09 04:00] VITALS: BP 121/82; TEMP 97.9; O2SAT 98
[2024-06-09 06:09] LABS: HEMATOCRIT 32.7 % (42.0-52.0); HEMOGLOBIN 9.9 g/dl (13.5-17.5); MEAN CORPUSCULAR HEMOGLOBIN 28.9 pg (27.0-33.0); MEAN CORPUSCULAR HGB CONC 30.3 g/dl (32.0-36.5); MEAN CORPUSCULAR VOLUME 95.3 fl (80.0-96.0); PLATELET COUNT, AUTOMATED 645 10^3/uL (150-450); RED BLOOD COUNT 3.43 10^6/uL (4.30-6.10)
[2024-06-09 06:34] LABS: BLOOD UREA NITROGEN 5 MG/DL (9-23); CALCIUM LEVEL 9.3 MG/DL (8.5-10.1); CARBON DIOXIDE LEVEL 29 MMOL/L (20-31); CHLORIDE LEVEL 97 MMOL/L (98-107); CREATININE FOR GFR 0.42 MG/DL (0.70-1.30); GLOMERULAR FILTRATION RATE > 60.0 (>60); GLUCOSE, FASTING 113 MG/DL (60-100); POTASSIUM SERUM 4.7 MMOL/L (3.5-5.1); SODIUM LEVEL 134 MMOL/L (136-145)
[2024-06-09] MEDS: MIRALAX *UNIT DOSE* 17GM PACKET PO SCH (09:00)
[2024-06-09] MEDS: METAMUCIL (PSYLLIUM) PACKET PO SCH (09:00)
[2024-06-09] MEDS: ACETAMINOPHEN 500 MG TAB PO SCH (11:10)
[2024-06-09] MEDS: KETOROLAC 30 MG/ML 1ML VIAL IV SCH (11:11)
[2024-06-09 12:00] VITALS: BP 158/110; TEMP 98.4; O2SAT 93
[2024-06-09] MEDS: CARVedilol 6.25 MG TAB PO ONE (12:53)
[2024-06-09 14:31] VITALS: BP 120/86
[2024-06-09 16:58] LABS: HEMATOCRIT 33.2 % (42.0-52.0); HEMOGLOBIN 10.1 g/dl (13.5-17.5); MEAN CORPUSCULAR HEMOGLOBIN 28.9 pg (27.0-33.0); MEAN CORPUSCULAR HGB CONC 30.4 g/dl (32.0-36.5); MEAN CORPUSCULAR VOLUME 95.1 fl (80.0-96.0); PLATELET COUNT, AUTOMATED 698 10^3/uL (150-450); RED BLOOD COUNT 3.49 10^6/uL (4.30-6.10); WHITE BLOOD COUNT 14.9 10^3/uL (4.0-10.0)
[2024-06-09 18:36] LABS: ERYTHROCYTE SEDIMENTATION RATE 100 mm/hr (0-15)
[2024-06-09 18:55] LABS: PROCALCITONIN 0.29 ng/ml
[2024-06-09 20:00] VITALS: BP 118/85; TEMP 98.1; O2SAT 94
[2024-06-10] MEDS: HYDROMORPHONE HCL 0.5 MG/ 0.5 ML SYRINGE IV ONE (01:04)
[2024-06-10 04:00] VITALS: BP 130/89; TEMP 98.4; O2SAT 94
[2024-06-10 06:28] LABS: HEMATOCRIT 34.5 % (42.0-52.0); HEMOGLOBIN 10.3 g/dl (13.5-17.5); MEAN CORPUSCULAR HEMOGLOBIN 28.9 pg (27.0-33.0); MEAN CORPUSCULAR HGB CONC 29.9 g/dl (32.0-36.5); MEAN CORPUSCULAR VOLUME 96.6 fl (80.0-96.0); PLATELET COUNT, AUTOMATED 726 10^3/uL (150-450); RED BLOOD COUNT 3.57 10^6/uL (4.30-6.10); WHITE BLOOD COUNT 16.7 10^3/uL (4.0-10.0)
[2024-06-10 06:55] LABS: BLOOD UREA NITROGEN 7 MG/DL (9-23); CALCIUM LEVEL 9.3 MG/DL (8.5-10.1); CARBON DIOXIDE LEVEL 29 MMOL/L (20-31); CHLORIDE LEVEL 102 MMOL/L (98-107); CREATININE FOR GFR 0.47 MG/DL (0.70-1.30); GLOMERULAR FILTRATION RATE > 60.0 (>60); GLUCOSE, FASTING 107 MG/DL (60-100); SODIUM LEVEL 137 MMOL/L (136-145)
[2024-06-10] MEDS ORDERED: MEROPENEM INJ 2 GM in NS 100 ML IV SCH (10:20)
[2024-06-10 12:00] VITALS: BP 140/90; TEMP 98.2; O2SAT 96
[2024-06-10] MEDS: MEROPENEM INJ 1 GM in IV 1 EA IV SCH (12:13)
[2024-06-10] MEDS: MORPHINE 2 MG/ML 1ML VIAL IV PRN (12:28)
[2024-06-10] MEDS: LINEZOLID 600 MG in IV 1 EA IV SCH (13:07)
[2024-06-10 20:00] VITALS: BP 148/90; TEMP 97.9; O2SAT 95
[2024-06-10] MEDS: CARVedilol 6.25 MG TAB PO SCH (20:30)
[2024-06-11 04:07] VITALS: BP 131/88; TEMP 98.6; O2SAT 95
[2024-06-11 06:20] LABS: HEMATOCRIT 31.9 % (42.0-52.0); HEMOGLOBIN 9.6 g/dl (13.5-17.5); MEAN CORPUSCULAR HEMOGLOBIN 29.4 pg (27.0-33.0); MEAN CORPUSCULAR HGB CONC 30.1 g/dl (32.0-36.5); MEAN CORPUSCULAR VOLUME 97.9 fl (80.0-96.0); PLATELET COUNT, AUTOMATED 647 10^3/uL (150-450); RED BLOOD COUNT 3.26 10^6/uL (4.30-6.10); WHITE BLOOD COUNT 15.3 10^3/uL (4.0-10.0)
[2024-06-11 07:14] LABS: BLOOD UREA NITROGEN 7 MG/DL (9-23); CARBON DIOXIDE LEVEL 30 MMOL/L (20-31); CHLORIDE LEVEL 102 MMOL/L (98-107); CREATININE FOR GFR 0.46 MG/DL (0.70-1.30); GLOMERULAR FILTRATION RATE > 60.0 (>60); GLUCOSE, FASTING 90 MG/DL (60-100); POTASSIUM SERUM 4.5 MMOL/L (3.5-5.1); SODIUM LEVEL 136 MMOL/L (136-145)
[2024-06-11] MEDS ORDERED: MORPHINE 2 MG/ML 1ML VIAL IV PRN (08:15)
[2024-06-11] MEDS: KETOROLAC 30 MG/ML 1ML VIAL IV ONE (08:58)
[2024-06-11] MEDS: MORPHINE 4 MG/ML 1ML VIAL IV ONE (08:59)
[2024-06-11 11:28] VITALS: BP 128/88; TEMP 97.7; O2SAT 96
[2024-06-11] MEDS: MORPHINE 4 MG/ML 1ML VIAL IV PRN ×2 (11:56→18:39)
[2024-06-11] MEDS ORDERED: KETOROLAC 30 MG/ML 1ML VIAL IV PRN (17:00)
[2024-06-11] MEDS: KETOROLAC 30 MG/ML 1ML VIAL IV SCH (17:18)
[2024-06-11 20:40] VITALS: BP 118/71; TEMP 98.4; O2SAT 92
[2024-06-11] MEDS: DOCUSATE SODIUM 100MG CAPSULE PO SCH (20:42)
[2024-06-12 03:53] VITALS: BP 138/86; TEMP 97.7; O2SAT 91
[2024-06-12 08:09] LABS: BASO # 0.1 10^3/uL (0.0-0.2); BASO % 0.8 % (0.0-1.0); EOS # 0.4 10^3/uL (0.0-0.5); EOS % 2.8 % (0.0-3.0); HEMATOCRIT 31.9 % (42.0-52.0); HEMOGLOBIN 9.7 g/dl (13.5-17.5); LYMPH # 1.5 10^3/uL (1.5-5.0); LYMPH % 9.5 % (24.0-44.0); MEAN CORPUSCULAR HEMOGLOBIN 29.4 pg (27.0-33.0); MEAN CORPUSCULAR HGB CONC 30.4 g/dl (32.0-36.5); MEAN CORPUSCULAR VOLUME 96.7 fl (80.0-96.0); MONO # 0.8 10^3/uL (0.0-0.8); MONO % 4.7 % (2.0-8.0); NEUTROPHILS # 12.9 10^3/uL (1.5-8.5); NEUTROPHILS % 81.2 % (36.0-66.0); PLATELET COUNT, AUTOMATED 627 10^3/uL (150-450); WHITE BLOOD COUNT 15.9 10^3/uL (4.0-10.0)
[2024-06-12] MEDS: VITAMIN D 50,000 UNITS CAPSULE (ERGOCALCIFEROL 1.25MG) PO SCH (08:31)
[2024-06-12 08:32] LABS: C REACTIVE PROTEIN QUANTITATIV 6.4 MG/DL (<1.0)
[2024-06-12 08:34] LABS: ALBUMIN 1.8 G/DL (3.2-5.2); ALKALINE PHOSPHATASE 153 U/L (40-129); ALT/SGPT 12 U/L (7.0-40); AST/SGOT 17 U/L (<34); BILIRUBIN,TOTAL < 0.2 MG/DL (0.3-1.2); BLOOD UREA NITROGEN 6 MG/DL (9-23); CALCIUM LEVEL 9.1 MG/DL (8.5-10.1); CARBON DIOXIDE LEVEL 27 MMOL/L (20-31); CHLORIDE LEVEL 103 MMOL/L (98-107); CREATININE FOR GFR 0.42 MG/DL (0.70-1.30); GLOMERULAR FILTRATION RATE > 60.0 (>60); GLUCOSE, FASTING 88 MG/DL (60-100); POTASSIUM SERUM 4.7 MMOL/L (3.5-5.1); SODIUM LEVEL 135 MMOL/L (136-145); TOTAL PROTEIN 6.5 G/DL (5.7-8.2)
[2024-06-12] MEDS ORDERED: KCL 10MEQ/100ML SWI (KRUN) 10 MEQ in IV 1 EA IV SCH (11:00)
[2024-06-12] MEDS: NS (Normal Saline) 0.9% 1,000 ML IV ONE (11:17)
[2024-06-12 11:23] LABS: MAGNESIUM LEVEL 1.5 MG/DL (1.8-2.4)
[2024-06-12 12:27] VITALS: BP 146/90; TEMP 98.6; O2SAT 92
[2024-06-12] MEDS: MAG SULF 1GM/100ML (MAG RUN) 1 GM in IV 1 EA IV SCH (15:10)
[2024-06-12 18:26] VITALS: BP 101/78; TEMP 98.4; O2SAT 92
[2024-06-12 20:02] VITALS: BP 102/77; TEMP 98.2; O2SAT 95
[2024-06-12] MEDS: FLUoxetine 20MG CAP PO SCH (21:34)
[2024-06-13 03:53] VITALS: BP 115/79; TEMP 97; O2SAT 92
[2024-06-13 06:07] LABS: BASO # 0.1 10^3/uL (0.0-0.2); BASO % 0.7 % (0.0-1.0); EOS # 0.4 10^3/uL (0.0-0.5); EOS % 2.1 % (0.0-3.0); HEMATOCRIT 30.3 % (42.0-52.0); HEMOGLOBIN 9.2 g/dl (13.5-17.5); LYMPH % 12.2 % (24.0-44.0); MEAN CORPUSCULAR HEMOGLOBIN 29.6 pg (27.0-33.0); MEAN CORPUSCULAR HGB CONC 30.4 g/dl (32.0-36.5); MEAN CORPUSCULAR VOLUME 97.4 fl (80.0-96.0); NEUTROPHILS # 12.9 10^3/uL (1.5-8.5); NEUTROPHILS % 77.8 % (36.0-66.0); PLATELET COUNT, AUTOMATED 630 10^3/uL (150-450); RED BLOOD COUNT 3.11 10^6/uL (4.30-6.10); WHITE BLOOD COUNT 16.5 10^3/uL (4.0-10.0)
[2024-06-13 06:38] LABS: BLOOD UREA NITROGEN 7 MG/DL (9-23); C REACTIVE PROTEIN QUANTITATIV 7.49 MG/DL (<1.0); CALCIUM LEVEL 8.9 MG/DL (8.5-10.1); CARBON DIOXIDE LEVEL 27 MMOL/L (20-31); CHLORIDE LEVEL 105 MMOL/L (98-107); CREATININE FOR GFR 0.51 MG/DL (0.70-1.30); GLOMERULAR FILTRATION RATE > 60.0 (>60); GLUCOSE, FASTING 98 MG/DL (60-100); POTASSIUM SERUM 4.1 MMOL/L (3.5-5.1); SODIUM LEVEL 139 MMOL/L (136-145)
[2024-06-13 08:00] VITALS: BP 108/75; TEMP 98.1; O2SAT 94
[2024-06-13] MEDS ORDERED: FLUoxetine 20MG CAP PO SCH (09:00)
[2024-06-13 11:49] VITALS: BP 108/75; TEMP 97.5; O2SAT 93
[2024-06-13 19:58] VITALS: BP 110/75; TEMP 98.6; O2SAT 93
[2024-06-14] MEDS: KETOROLAC 30 MG/ML 1ML VIAL IV PRN (01:04)
[2024-06-14 03:50] VITALS: BP 148/93; TEMP 98.2; O2SAT 94
[2024-06-14 05:46] LABS: HEMATOCRIT 30.2 % (42.0-52.0); HEMOGLOBIN 9.3 g/dl (13.5-17.5); MEAN CORPUSCULAR HEMOGLOBIN 29.6 pg (27.0-33.0); MEAN CORPUSCULAR HGB CONC 30.8 g/dl (32.0-36.5); MEAN CORPUSCULAR VOLUME 96.2 fl (80.0-96.0); PLATELET COUNT, AUTOMATED 605 10^3/uL (150-450); RED BLOOD COUNT 3.14 10^6/uL (4.30-6.10); WHITE BLOOD COUNT 17.9 10^3/uL (4.0-10.0)
[2024-06-14 06:12] LABS: BLOOD UREA NITROGEN 7 MG/DL (9-23); CALCIUM LEVEL 8.9 MG/DL (8.5-10.1); CARBON DIOXIDE LEVEL 28 MMOL/L (20-31); CHLORIDE LEVEL 105 MMOL/L (98-107); CREATININE FOR GFR 0.36 MG/DL (0.70-1.30); GLOMERULAR FILTRATION RATE > 60.0 (>60); GLUCOSE, FASTING 94 MG/DL (60-100); POTASSIUM SERUM 4.1 MMOL/L (3.5-5.1); SODIUM LEVEL 138 MMOL/L (136-145)
[2024-06-14 12:00] VITALS: BP 140/92; TEMP 98.2; O2SAT 96
[2024-06-14] MEDS: SODIUM CHLORIDE 0.9% INJ 10 ML SYR IV SCH (15:49)
[2024-06-14 19:36] VITALS: BP 140/100; TEMP 97.9; O2SAT 96
[2024-06-15 04:00] VITALS: BP 118/78; TEMP 97.7; O2SAT 97
[2024-06-15 06:42] LABS: BLOOD UREA NITROGEN 6 MG/DL (9-23); C REACTIVE PROTEIN QUANTITATIV 4.73 MG/DL (<1.0); CALCIUM LEVEL 8.7 MG/DL (8.5-10.1); CARBON DIOXIDE LEVEL 26 MMOL/L (20-31); CHLORIDE LEVEL 105 MMOL/L (98-107); CREATININE FOR GFR 0.39 MG/DL (0.70-1.30); GLOMERULAR FILTRATION RATE > 60.0 (>60); GLUCOSE, FASTING 89 MG/DL (60-100); POTASSIUM SERUM 4.1 MMOL/L (3.5-5.1); SODIUM LEVEL 138 MMOL/L (136-145)
[2024-06-15 07:35] VITALS: BP 119/78; TEMP 97.9; O2SAT 95
[2024-06-15 08:29] LABS: BASO # 0.1 10^3/uL (0.0-0.2); BASO % 0.8 % (0.0-1.0); EOS # 0.2 10^3/uL (0.0-0.5); EOS % 2.3 % (0.0-3.0); HEMATOCRIT 29.3 % (42.0-52.0); HEMOGLOBIN 9.1 g/dl (13.5-17.5); LYMPH # 2.1 10^3/uL (1.5-5.0); LYMPH % 20.5 % (24.0-44.0); MEAN CORPUSCULAR HEMOGLOBIN 30.1 pg (27.0-33.0); MEAN CORPUSCULAR HGB CONC 31.1 g/dl (32.0-36.5); MONO # 0.7 10^3/uL (0.0-0.8); MONO % 6.8 % (2.0-8.0); NEUTROPHILS # 6.9 10^3/uL (1.5-8.5); NEUTROPHILS % 68.6 % (36.0-66.0); PLATELET COUNT, AUTOMATED 526 10^3/uL (150-450); RED BLOOD COUNT 3.02 10^6/uL (4.30-6.10); WHITE BLOOD COUNT 10.1 10^3/uL (4.0-10.0)
[2024-06-15 11:33] VITALS: BP 111/75; TEMP 97.9; O2SAT 97
[2024-06-15 20:00] VITALS: BP 150/104; TEMP 98.2; O2SAT 100
[2024-06-15] MEDS: LINEZOLID 600MG TABLET (ZYVOX) PO SCH (20:18)
[2024-06-16 04:00] VITALS: BP 103/74; TEMP 97.7; O2SAT 99
[2024-06-16 06:04] LABS: HEMATOCRIT 28.4 % (42.0-52.0); HEMOGLOBIN 8.6 g/dl (13.5-17.5); MEAN CORPUSCULAR HEMOGLOBIN 29.7 pg (27.0-33.0); MEAN CORPUSCULAR HGB CONC 30.3 g/dl (32.0-36.5); MEAN CORPUSCULAR VOLUME 97.9 fl (80.0-96.0); PLATELET COUNT, AUTOMATED 430 10^3/uL (150-450); WHITE BLOOD COUNT 7.9 10^3/uL (4.0-10.0)
[2024-06-16 06:31] LABS: C REACTIVE PROTEIN QUANTITATIV 6.34 MG/DL (<1.0)
[2024-06-16 06:32] LABS: BLOOD UREA NITROGEN 9 MG/DL (9-23); CALCIUM LEVEL 8.7 MG/DL (8.5-10.1); CARBON DIOXIDE LEVEL 28 MMOL/L (20-31); CHLORIDE LEVEL 106 MMOL/L (98-107); CREATININE FOR GFR 0.37 MG/DL (0.70-1.30); GLOMERULAR FILTRATION RATE > 60.0 (>60); GLUCOSE, FASTING 93 MG/DL (60-100); POTASSIUM SERUM 4.1 MMOL/L (3.5-5.1); SODIUM LEVEL 140 MMOL/L (136-145)
[2024-06-16 12:00] VITALS: BP 143/99; TEMP 98.1; O2SAT 94
[2024-06-16] MEDS: MORPHINE 2 MG/ML 1ML VIAL IV PRN (17:59)
[2024-06-16 20:00] VITALS: BP 140/90; TEMP 97.7; O2SAT 94
[2024-06-17 03:50] VITALS: BP 140/84; TEMP 98.6; O2SAT 94
[2024-06-17 06:05] LABS: HEMATOCRIT 29.2 % (42.0-52.0); HEMOGLOBIN 8.8 g/dl (13.5-17.5); MEAN CORPUSCULAR HGB CONC 30.1 g/dl (32.0-36.5); MEAN CORPUSCULAR VOLUME 96.4 fl (80.0-96.0); PLATELET COUNT, AUTOMATED 417 10^3/uL (150-450); RED BLOOD COUNT 3.03 10^6/uL (4.30-6.10); WHITE BLOOD COUNT 11.7 10^3/uL (4.0-10.0)
[2024-06-17 06:30] LABS: ALBUMIN 1.6 G/DL (3.2-5.2); ALKALINE PHOSPHATASE 154 U/L (40-129); ALT/SGPT 11 U/L (7.0-40); AST/SGOT 16 U/L (<34); BILIRUBIN,TOTAL 0.2 MG/DL (0.3-1.2); BLOOD UREA NITROGEN 10 MG/DL (9-23); C REACTIVE PROTEIN QUANTITATIV 5.29 MG/DL (<1.0); CALCIUM LEVEL 8.5 MG/DL (8.5-10.1); CARBON DIOXIDE LEVEL 26 MMOL/L (20-31); CHLORIDE LEVEL 105 MMOL/L (98-107); CREATININE FOR GFR 0.38 MG/DL (0.70-1.30); GLOMERULAR FILTRATION RATE > 60.0 (>60); GLUCOSE, FASTING 76 MG/DL (60-100); POTASSIUM SERUM 4.4 MMOL/L (3.5-5.1); SODIUM LEVEL 140 MMOL/L (136-145); TOTAL PROTEIN 5.8 G/DL (5.7-8.2)
[2024-06-17 12:00] VITALS: BP 140/75; TEMP 97.7; O2SAT 96
[2024-06-17] MEDS: oxyCODONE 5MG TAB PO PRN (16:16)
[2024-06-17 20:00] VITALS: BP 103/69; TEMP 98; O2SAT 97
[2024-06-18 04:00] VITALS: BP 134/58; TEMP 97.7; O2SAT 97
[2024-06-18 06:05] LABS: HEMATOCRIT 28.4 % (42.0-52.0); HEMOGLOBIN 8.6 g/dl (13.5-17.5); MEAN CORPUSCULAR HGB CONC 30.3 g/dl (32.0-36.5); PLATELET COUNT, AUTOMATED 358 10^3/uL (150-450); RED BLOOD COUNT 2.87 10^6/uL (4.30-6.10); WHITE BLOOD COUNT 12.7 10^3/uL (4.0-10.0)
[2024-06-18 06:38] LABS: BLOOD UREA NITROGEN 9 MG/DL (9-23); CALCIUM LEVEL 8.8 MG/DL (8.5-10.1); CARBON DIOXIDE LEVEL 25 MMOL/L (20-31); CHLORIDE LEVEL 104 MMOL/L (98-107); CREATININE FOR GFR 0.41 MG/DL (0.70-1.30); GLOMERULAR FILTRATION RATE > 60.0 (>60); GLUCOSE, FASTING 80 MG/DL (60-100); POTASSIUM SERUM 4.3 MMOL/L (3.5-5.1); SODIUM LEVEL 140 MMOL/L (136-145)
[2024-06-18 12:00] VITALS: BP 118/79; TEMP 98.2; O2SAT 98
[2024-06-18 18:05] LABS: APPEARANCE, BODY FLUID CLEAR (CLEAR); ASCITES FL COLOR COLORLESS (COLORLESS); SOURCE, BODY FLUID ASCITES
[2024-06-18 18:19] LABS: SOURCE, BODY FLUID ALBUMIN ASCITES
[2024-06-18 18:23] LABS: SOURCE, BODY FLUID GLUCOSE ASCITES
[2024-06-18 20:00] VITALS: BP 116/79; TEMP 97.7; O2SAT 97
[2024-06-18 20:06] LABS: SOURCE, BODY FLUID TOT PROTEIN ASCITES; TOTAL PROTEIN, BODY FLUID < 2.0 G/DL (NOT ESTABLISHED)
[2024-06-18] MEDS: LINEZOLID 600 MG in IV 1 EA IV SCH (23:15)
[2024-06-19 03:37] VITALS: BP 133/89; TEMP 97.9; O2SAT 95
[2024-06-19 05:43] LABS: HEMATOCRIT 29.2 % (42.0-52.0); HEMOGLOBIN 8.5 g/dl (13.5-17.5); MEAN CORPUSCULAR HEMOGLOBIN 29.7 pg (27.0-33.0); MEAN CORPUSCULAR HGB CONC 29.1 g/dl (32.0-36.5); MEAN CORPUSCULAR VOLUME 102.1 fl (80.0-96.0); RED BLOOD COUNT 2.86 10^6/uL (4.30-6.10); WHITE BLOOD COUNT 8.3 10^3/uL (4.0-10.0)
[2024-06-19 05:45] LABS: PLATELET COUNT, AUTOMATED 255 10^3/uL (150-450)
[2024-06-19 05:57] LABS: C REACTIVE PROTEIN QUANTITATIV 19.93 MG/DL (<1.0)
[2024-06-19 05:58] LABS: BLOOD UREA NITROGEN 7 MG/DL (9-23); CALCIUM LEVEL 8.4 MG/DL (8.5-10.1); CARBON DIOXIDE LEVEL 23 MMOL/L (20-31); CHLORIDE LEVEL 107 MMOL/L (98-107); CREATININE FOR GFR 0.31 MG/DL (0.70-1.30); GLOMERULAR FILTRATION RATE > 60.0 (>60); GLUCOSE, FASTING 85 MG/DL (60-100); POTASSIUM SERUM 4.2 MMOL/L (3.5-5.1); SODIUM LEVEL 141 MMOL/L (136-145)
[2024-06-19 06:52] LABS: ALBUMIN 1.6 G/DL (3.2-5.2)
[2024-06-19 12:17] VITALS: BP 88/50; TEMP 97.9; O2SAT 96
[2024-06-19] MEDS: NS (Normal Saline) 0.9% 1,000 ML IV ONE (12:37)
[2024-06-19 13:37] VITALS: BP 102/61
[2024-06-19 16:19] VITALS: BP 105/63
[2024-06-19] MEDS: SODIUM CHLORIDE 0.9% INJ 10 ML SYR IV PRN (18:00)
[2024-06-19 20:00] VITALS: BP 142/89; TEMP 97.9; O2SAT 94
[2024-06-20] VITALS (9 sets, daily range): BP systolic 74–145; BP diastolic 46–94; TEMP 97.2–98.6; O2SAT 91–98
[2024-06-20 06:15] LABS: BASO % 0.4 % (0.0-1.0); EOS # 0.1 10^3/uL (0.0-0.5); EOS % 0.8 % (0.0-3.0); HEMATOCRIT 25.1 % (42.0-52.0); HEMOGLOBIN 7.8 g/dl (13.5-17.5); LYMPH # 1.3 10^3/uL (1.5-5.0); LYMPH % 11.4 % (24.0-44.0); MEAN CORPUSCULAR HEMOGLOBIN 29.8 pg (27.0-33.0); MEAN CORPUSCULAR HGB CONC 31.1 g/dl (32.0-36.5); MEAN CORPUSCULAR VOLUME 95.8 fl (80.0-96.0); MONO # 0.5 10^3/uL (0.0-0.8); NEUTROPHILS # 9.2 10^3/uL (1.5-8.5); NEUTROPHILS % 82.8 % (36.0-66.0); PLATELET COUNT, AUTOMATED 263 10^3/uL (150-450); RED BLOOD COUNT 2.62 10^6/uL (4.30-6.10); WHITE BLOOD COUNT 11.2 10^3/uL (4.0-10.0)
[2024-06-20 06:40] LABS: BLOOD UREA NITROGEN 7 MG/DL (9-23); C REACTIVE PROTEIN QUANTITATIV 11.01 MG/DL (<1.0); CALCIUM LEVEL 8.5 MG/DL (8.5-10.1); CARBON DIOXIDE LEVEL 28 MMOL/L (20-31); CHLORIDE LEVEL 103 MMOL/L (98-107); CREATININE FOR GFR 0.29 MG/DL (0.70-1.30); GLOMERULAR FILTRATION RATE > 60.0 (>60); GLUCOSE, FASTING 90 MG/DL (60-100); MAGNESIUM LEVEL 1.4 MG/DL (1.8-2.4); POTASSIUM SERUM 3.8 MMOL/L (3.5-5.1); SODIUM LEVEL 139 MMOL/L (136-145)
[2024-06-20] MEDS: ENOXAPARIN 40MG/0.4ML SYRINGE (J1650 PER 10MG) SC SCH (09:17)
[2024-06-20] MEDS: MAG SULF 1GM/100ML (MAG RUN) 1 GM in IV 1 EA IV SCH (09:20)
[2024-06-20] MEDS: METOCLOPRAMIDE INJ 10MG/2ML VIAL IV ONE (11:30)
[2024-06-20 12:23] LABS: HEMATOCRIT 26.3 % (42.0-52.0)
[2024-06-20] MEDS: NS (Normal Saline) 0.9% 1,000 ML IV ONE (13:30)
[2024-06-21 04:00] VITALS: BP 154/98; TEMP 98.6; O2SAT 92
[2024-06-21 06:11] LABS: BASO # 0.1 10^3/uL (0.0-0.2); BASO % 0.7 % (0.0-1.0); EOS # 0.2 10^3/uL (0.0-0.5); EOS % 2.1 % (0.0-3.0); HEMATOCRIT 34.7 % (42.0-52.0); HEMOGLOBIN 11.2 g/dl (13.5-17.5); LYMPH # 1.4 10^3/uL (1.5-5.0); LYMPH % 16.6 % (24.0-44.0); MEAN CORPUSCULAR HEMOGLOBIN 30.8 pg (27.0-33.0); MEAN CORPUSCULAR HGB CONC 32.3 g/dl (32.0-36.5); MEAN CORPUSCULAR VOLUME 95.3 fl (80.0-96.0); MONO # 0.4 10^3/uL (0.0-0.8); MONO % 4.7 % (2.0-8.0); NEUTROPHILS # 6.5 10^3/uL (1.5-8.5); NEUTROPHILS % 75.3 % (36.0-66.0); PLATELET COUNT, AUTOMATED 246 10^3/uL (150-450); RED BLOOD COUNT 3.64 10^6/uL (4.30-6.10); WHITE BLOOD COUNT 8.7 10^3/uL (4.0-10.0)
[2024-06-21 06:30] LABS: BLOOD UREA NITROGEN 6 MG/DL (9-23); C REACTIVE PROTEIN QUANTITATIV 7.49 MG/DL (<1.0); CALCIUM LEVEL 8.2 MG/DL (8.5-10.1); CARBON DIOXIDE LEVEL 27 MMOL/L (20-31); CHLORIDE LEVEL 103 MMOL/L (98-107); CREATININE FOR GFR 0.26 MG/DL (0.70-1.30); GLOMERULAR FILTRATION RATE > 60.0 (>60); GLUCOSE, FASTING 101 MG/DL (60-100); MAGNESIUM LEVEL 2.1 MG/DL (1.8-2.4); POTASSIUM SERUM 4.3 MMOL/L (3.5-5.1); SODIUM LEVEL 137 MMOL/L (136-145)
[2024-06-21] MEDS: METOCLOPRAMIDE INJ 10MG/2ML VIAL IV ONE (08:18)
[2024-06-21 09:10] LABS: CK-MB VALUE MASS < 1.0 NG/ML (<3.6)
[2024-06-21] MEDS: GASTROGRAFIN SOLUTION 30ML PO SCH (09:10)
[2024-06-21 09:12] LABS: CPK CREATINE PHOSPHOKINASE 22 U/L (46-171); MB/CK RELATIVE INDEX 4.54 (< OR =4)
[2024-06-21] MEDS: METOCLOPRAMIDE INJ 10MG/2ML VIAL IV SCH (13:28)
[2024-06-21] MEDS: SCOPOLAMINE 1MG TRANSDERMAL PATCH TOP SCH (13:29)
[2024-06-21] MEDS ORDERED: METOCLOPRAMIDE INJ 10MG/2ML VIAL IV PRN (14:00)
[2024-06-21 14:14] VITALS: BP 129/87
[2024-06-21] MEDS: PERCOCET 5MG/325MG TAB PO PRN (14:31)
[2024-06-21 20:00] VITALS: BP 125/85; TEMP 97.7; O2SAT 96
[2024-06-22] VITALS (7 sets, daily range): BP systolic 136–166; BP diastolic 90–100; TEMP 97.3–98.4; O2SAT 92–96
[2024-06-22 04:54] LABS: HEMATOCRIT 35.3 % (42.0-52.0); HEMOGLOBIN 11.3 g/dl (13.5-17.5); MEAN CORPUSCULAR HEMOGLOBIN 30.3 pg (27.0-33.0); MEAN CORPUSCULAR VOLUME 94.6 fl (80.0-96.0); PLATELET COUNT, AUTOMATED 295 10^3/uL (150-450); RED BLOOD COUNT 3.73 10^6/uL (4.30-6.10); WHITE BLOOD COUNT 9.1 10^3/uL (4.0-10.0)
[2024-06-22 04:55] LABS: BASO # 0.1 10^3/uL (0.0-0.2); BASO % 0.8 % (0.0-1.0); EOS # 0.4 10^3/uL (0.0-0.5); EOS % 4.3 % (0.0-3.0); HEMOGLOBIN 11.2 g/dl (13.5-17.5); LYMPH # 1.6 10^3/uL (1.5-5.0); LYMPH % 18.1 % (24.0-44.0); MEAN CORPUSCULAR HEMOGLOBIN 29.9 pg (27.0-33.0); MEAN CORPUSCULAR VOLUME 93.6 fl (80.0-96.0); MONO # 0.5 10^3/uL (0.0-0.8); MONO % 6.2 % (2.0-8.0); NEUTROPHILS # 6.2 10^3/uL (1.5-8.5); NEUTROPHILS % 70.3 % (36.0-66.0); PLATELET COUNT, AUTOMATED 283 10^3/uL (150-450); RED BLOOD COUNT 3.74 10^6/uL (4.30-6.10); WHITE BLOOD COUNT 8.8 10^3/uL (4.0-10.0)
[2024-06-22 05:19] LABS: BLOOD UREA NITROGEN 7 MG/DL (9-23); C REACTIVE PROTEIN QUANTITATIV 5.72 MG/DL (<1.0); CALCIUM LEVEL 8.2 MG/DL (8.5-10.1); CARBON DIOXIDE LEVEL 29 MMOL/L (20-31); CHLORIDE LEVEL 104 MMOL/L (98-107); GLOMERULAR FILTRATION RATE > 60.0 (>60); GLUCOSE, FASTING 97 MG/DL (60-100); MAGNESIUM LEVEL 1.9 MG/DL (1.8-2.4); POTASSIUM SERUM 3.7 MMOL/L (3.5-5.1); SODIUM LEVEL 140 MMOL/L (136-145)
[2024-06-22] MEDS: CEPHALEXIN 500 MG CAP PO SCH (05:25)
[2024-06-23 04:00] VITALS: BP 156/95; TEMP 98.4; O2SAT 95
[2024-06-23 06:55] LABS: BASO # 0.1 10^3/uL (0.0-0.2); BASO % 0.8 % (0.0-1.0); EOS # 0.3 10^3/uL (0.0-0.5); EOS % 3.4 % (0.0-3.0); HEMATOCRIT 34.9 % (42.0-52.0); HEMOGLOBIN 11.2 g/dl (13.5-17.5); LYMPH # 1.6 10^3/uL (1.5-5.0); LYMPH % 17.9 % (24.0-44.0); MEAN CORPUSCULAR HEMOGLOBIN 30.5 pg (27.0-33.0); MEAN CORPUSCULAR HGB CONC 32.1 g/dl (32.0-36.5); MEAN CORPUSCULAR VOLUME 95.1 fl (80.0-96.0); MONO # 0.9 10^3/uL (0.0-0.8); MONO % 10.1 % (2.0-8.0); NEUTROPHILS # 5.9 10^3/uL (1.5-8.5); NEUTROPHILS % 67.2 % (36.0-66.0); PLATELET COUNT, AUTOMATED 283 10^3/uL (150-450); RED BLOOD COUNT 3.67 10^6/uL (4.30-6.10); WHITE BLOOD COUNT 8.8 10^3/uL (4.0-10.0)
[2024-06-23 07:13] LABS: C REACTIVE PROTEIN QUANTITATIV 5.14 MG/DL (<1.0)
[2024-06-23 07:14] LABS: BLOOD UREA NITROGEN 6 MG/DL (9-23); CALCIUM LEVEL 8.8 MG/DL (8.5-10.1); CARBON DIOXIDE LEVEL 33 MMOL/L (20-31); CHLORIDE LEVEL 103 MMOL/L (98-107); CREATININE FOR GFR 0.26 MG/DL (0.70-1.30); GLOMERULAR FILTRATION RATE > 60.0 (>60); GLUCOSE, FASTING 90 MG/DL (60-100); MAGNESIUM LEVEL 1.8 MG/DL (1.8-2.4); POTASSIUM SERUM 3.8 MMOL/L (3.5-5.1); SODIUM LEVEL 142 MMOL/L (136-145)
[2024-06-23 12:00] VITALS: BP 118/79; TEMP 98.4; O2SAT 96
[2024-06-23 19:50] VITALS: BP 156/96; TEMP 98.4; O2SAT 97
[2024-06-24 04:20] VITALS: BP 148/96; TEMP 97.9; O2SAT 95
[2024-06-24] MEDS ORDERED: METOCLOPRAMIDE INJ 10MG/2ML VIAL IV ONE (04:30)
[2024-06-24] MEDS: MECLIZINE 12.5 MG TAB PO ONE (05:14)
[2024-06-24 07:08] LABS: BASO # 0.1 10^3/uL (0.0-0.2); BASO % 0.9 % (0.0-1.0); EOS # 0.5 10^3/uL (0.0-0.5); EOS % 4.1 % (0.0-3.0); HEMATOCRIT 34.3 % (42.0-52.0); HEMOGLOBIN 10.9 g/dl (13.5-17.5); LYMPH # 1.9 10^3/uL (1.5-5.0); LYMPH % 15.7 % (24.0-44.0); MEAN CORPUSCULAR HEMOGLOBIN 30.4 pg (27.0-33.0); MEAN CORPUSCULAR HGB CONC 31.8 g/dl (32.0-36.5); MEAN CORPUSCULAR VOLUME 95.5 fl (80.0-96.0); MONO # 1.6 10^3/uL (0.0-0.8); MONO % 12.9 % (2.0-8.0); NEUTROPHILS # 7.9 10^3/uL (1.5-8.5); NEUTROPHILS % 65.9 % (36.0-66.0); PLATELET COUNT, AUTOMATED 254 10^3/uL (150-450); RED BLOOD COUNT 3.59 10^6/uL (4.30-6.10); WHITE BLOOD COUNT 12.1 10^3/uL (4.0-10.0)
[2024-06-24 07:37] LABS: C REACTIVE PROTEIN QUANTITATIV 5.29 MG/DL (<1.0)
[2024-06-24 07:38] LABS: BLOOD UREA NITROGEN 5 MG/DL (9-23); CALCIUM LEVEL 8.6 MG/DL (8.5-10.1); CARBON DIOXIDE LEVEL 33 MMOL/L (20-31); CHLORIDE LEVEL 102 MMOL/L (98-107); CREATININE FOR GFR 0.27 MG/DL (0.70-1.30); GLOMERULAR FILTRATION RATE > 60.0 (>60); GLUCOSE, FASTING 103 MG/DL (60-100); MAGNESIUM LEVEL 1.7 MG/DL (1.8-2.4); POTASSIUM SERUM 3.9 MMOL/L (3.5-5.1); SODIUM LEVEL 141 MMOL/L (136-145)
[2024-06-24] MEDS: MAG SULF 1GM/100ML (MAG RUN) 1 GM in IV 1 EA IV ONE (10:45)
[2024-06-24] MEDS: METOCLOPRAMIDE 5 MG TAB PO PRN (11:57)
[2024-06-24 12:00] VITALS: BP 119/81; TEMP 98.1; O2SAT 95
[2024-06-25 04:02] VITALS: BP 140/92; TEMP 98.4; O2SAT 96
[2024-06-25 05:14] LABS: BASO # 0.1 10^3/uL (0.0-0.2); BASO % 0.9 % (0.0-1.0); EOS # 0.5 10^3/uL (0.0-0.5); EOS % 3.9 % (0.0-3.0); HEMATOCRIT 34.4 % (42.0-52.0); HEMOGLOBIN 10.8 g/dl (13.5-17.5); LYMPH # 2.3 10^3/uL (1.5-5.0); MEAN CORPUSCULAR HEMOGLOBIN 29.8 pg (27.0-33.0); MEAN CORPUSCULAR HGB CONC 31.4 g/dl (32.0-36.5); MEAN CORPUSCULAR VOLUME 94.8 fl (80.0-96.0); MONO # 1.7 10^3/uL (0.0-0.8); MONO % 13.5 % (2.0-8.0); NEUTROPHILS % 62.4 % (36.0-66.0); PLATELET COUNT, AUTOMATED 265 10^3/uL (150-450); RED BLOOD COUNT 3.63 10^6/uL (4.30-6.10); WHITE BLOOD COUNT 12.8 10^3/uL (4.0-10.0)
[2024-06-25 05:36] LABS: BLOOD UREA NITROGEN 7 MG/DL (9-23); C REACTIVE PROTEIN QUANTITATIV 8.08 MG/DL (<1.0); CALCIUM LEVEL 8.8 MG/DL (8.5-10.1); CARBON DIOXIDE LEVEL 28 MMOL/L (20-31); CHLORIDE LEVEL 103 MMOL/L (98-107); GLOMERULAR FILTRATION RATE > 60.0 (>60); GLUCOSE, FASTING 101 MG/DL (60-100); MAGNESIUM LEVEL 1.9 MG/DL (1.8-2.4); POTASSIUM SERUM 4.4 MMOL/L (3.5-5.1); SODIUM LEVEL 138 MMOL/L (136-145)
[2024-06-25 05:37] LABS: BLOOD UREA NITROGEN 6 MG/DL (9-23); CARBON DIOXIDE LEVEL 28 MMOL/L (20-31); CHLORIDE LEVEL 103 MMOL/L (98-107); CREATININE FOR GFR 0.38 MG/DL (0.70-1.30); GLOMERULAR FILTRATION RATE > 60.0 (>60); GLUCOSE, FASTING 103 MG/DL (60-100); MAGNESIUM LEVEL 1.9 MG/DL (1.8-2.4); POTASSIUM SERUM 4.5 MMOL/L (3.5-5.1); SODIUM LEVEL 138 MMOL/L (136-145)
[2024-06-25 12:00] VITALS: BP 126/82; TEMP 98.1; O2SAT 99
[2024-06-25] MEDS: FUROSEMIDE 20MG/2ML VIAL IV ONE (15:33)
[2024-06-25] MEDS: metroNIDAZOLE (FLAGYL) 500MG TABLET PO SCH (21:50)
[2024-06-26 04:00] VITALS: BP 142/92; TEMP 97.9; O2SAT 96
[2024-06-26 05:55] LABS: BASO # 0.1 10^3/uL (0.0-0.2); BASO % 0.8 % (0.0-1.0); EOS # 0.6 10^3/uL (0.0-0.5); EOS % 5.2 % (0.0-3.0); HEMATOCRIT 33.4 % (42.0-52.0); HEMOGLOBIN 10.8 g/dl (13.5-17.5); LYMPH # 2.1 10^3/uL (1.5-5.0); MEAN CORPUSCULAR HEMOGLOBIN 30.5 pg (27.0-33.0); MEAN CORPUSCULAR HGB CONC 32.3 g/dl (32.0-36.5); MEAN CORPUSCULAR VOLUME 94.4 fl (80.0-96.0); MONO # 1.8 10^3/uL (0.0-0.8); NEUTROPHILS # 6.9 10^3/uL (1.5-8.5); NEUTROPHILS % 58.3 % (36.0-66.0); PLATELET COUNT, AUTOMATED 309 10^3/uL (150-450); RED BLOOD COUNT 3.54 10^6/uL (4.30-6.10); WHITE BLOOD COUNT 11.8 10^3/uL (4.0-10.0)
[2024-06-26 06:30] LABS: C REACTIVE PROTEIN QUANTITATIV 7.52 MG/DL (<1.0)
[2024-06-26 06:34] LABS: BLOOD UREA NITROGEN 10 MG/DL (9-23); CALCIUM LEVEL 9.2 MG/DL (8.5-10.1); CARBON DIOXIDE LEVEL 28 MMOL/L (20-31); CHLORIDE LEVEL 104 MMOL/L (98-107); CREATININE FOR GFR 0.46 MG/DL (0.70-1.30); GLOMERULAR FILTRATION RATE > 60.0 (>60); GLUCOSE, FASTING 96 MG/DL (60-100); MAGNESIUM LEVEL 1.7 MG/DL (1.8-2.4); POTASSIUM SERUM 4.3 MMOL/L (3.5-5.1); SODIUM LEVEL 136 MMOL/L (136-145)
[2024-06-26 12:00] VITALS: BP 124/84; TEMP 98; O2SAT 96
[2024-06-26] MEDS ORDERED: PERCOCET 5MG/325MG TAB PO PRN (16:05)
[2024-06-26] MEDS: MORPHINE 4 MG/ML 1ML VIAL IV ONE (16:09)
[2024-06-27 04:00] VITALS: BP 107/75; TEMP 98.1; O2SAT 98
[2024-06-27] MEDS: FUROSEMIDE 20 MG TAB PO ONE (06:48)
[2024-06-27 08:18] LABS: BASO # 0.1 10^3/uL (0.0-0.2); EOS # 0.5 10^3/uL (0.0-0.5); EOS % 4.1 % (0.0-3.0); HEMOGLOBIN 10.3 g/dl (13.5-17.5); LYMPH # 1.8 10^3/uL (1.5-5.0); LYMPH % 15.3 % (24.0-44.0); MEAN CORPUSCULAR HEMOGLOBIN 29.9 pg (27.0-33.0); MEAN CORPUSCULAR HGB CONC 31.2 g/dl (32.0-36.5); MEAN CORPUSCULAR VOLUME 95.7 fl (80.0-96.0); MONO # 1.5 10^3/uL (0.0-0.8); MONO % 13.2 % (2.0-8.0); NEUTROPHILS # 7.2 10^3/uL (1.5-8.5); NEUTROPHILS % 62.3 % (36.0-66.0); PLATELET COUNT, AUTOMATED 368 10^3/uL (150-450); RED BLOOD COUNT 3.45 10^6/uL (4.30-6.10); WHITE BLOOD COUNT 11.5 10^3/uL (4.0-10.0)
[2024-06-27 08:58] LABS: BLOOD UREA NITROGEN 14 MG/DL (9-23); CALCIUM LEVEL 9.3 MG/DL (8.5-10.1); CARBON DIOXIDE LEVEL 27 MMOL/L (20-31); CHLORIDE LEVEL 104 MMOL/L (98-107); CREATININE FOR GFR 0.43 MG/DL (0.70-1.30); GLOMERULAR FILTRATION RATE > 60.0 (>60); GLUCOSE, FASTING 98 MG/DL (60-100); POTASSIUM SERUM 4.5 MMOL/L (3.5-5.1); SODIUM LEVEL 140 MMOL/L (136-145)
[2024-06-27] MEDS: oxyCODONE 5MG TAB PO PRN (21:27)
[2024-06-27] MEDS: MORPHINE 2 MG/ML 1ML VIAL IV ONE (23:53)
[2024-06-28 04:28] VITALS: BP 104/66; TEMP 98.1; O2SAT 97
[2024-06-28 06:36] LABS: HEMATOCRIT 33.4 % (42.0-52.0); HEMOGLOBIN 10.5 g/dl (13.5-17.5); MEAN CORPUSCULAR HGB CONC 31.4 g/dl (32.0-36.5); MEAN CORPUSCULAR VOLUME 95.4 fl (80.0-96.0); PLATELET COUNT, AUTOMATED 420 10^3/uL (150-450); WHITE BLOOD COUNT 13.5 10^3/uL (4.0-10.0)
[2024-06-28] MEDS: oxyCODONE 5MG TAB PO PRN (12:09)
[2024-06-28] MEDS: ONDANSETRON 4MG ORAL DISINTEGRATING TAB SL PRN (13:11)
[2024-06-28] MEDS: FUROSEMIDE 20MG/2ML VIAL IV ONE (13:11)
[2024-06-28] MEDS: HYDROCORTISONE 1% CREAM 30GM TOP ONE (21:34)
[2024-06-28] MEDS: KETOCONAZOLE 2% CREAM TOP SCH (21:35)
[2024-06-29 04:00] VITALS: BP 108/78; TEMP 97.7; O2SAT 97
[2024-06-29 06:26] LABS: BASO # 0.1 10^3/uL (0.0-0.2); BASO % 0.4 % (0.0-1.0); EOS # 0.3 10^3/uL (0.0-0.5); EOS % 2.7 % (0.0-3.0); HEMATOCRIT 32.8 % (42.0-52.0); HEMOGLOBIN 10.4 g/dl (13.5-17.5); LYMPH # 1.7 10^3/uL (1.5-5.0); LYMPH % 14.8 % (24.0-44.0); MEAN CORPUSCULAR HEMOGLOBIN 30.8 pg (27.0-33.0); MEAN CORPUSCULAR HGB CONC 31.7 g/dl (32.0-36.5); MONO # 1.3 10^3/uL (0.0-0.8); MONO % 11.8 % (2.0-8.0); NEUTROPHILS # 7.6 10^3/uL (1.5-8.5); NEUTROPHILS % 67.5 % (36.0-66.0); PLATELET COUNT, AUTOMATED 498 10^3/uL (150-450); RED BLOOD COUNT 3.38 10^6/uL (4.30-6.10); WHITE BLOOD COUNT 11.3 10^3/uL (4.0-10.0)
[2024-06-29 06:32] LABS: BLOOD UREA NITROGEN 16 MG/DL (9-23); CALCIUM LEVEL 9.9 MG/DL (8.5-10.1); CARBON DIOXIDE LEVEL 27 MMOL/L (20-31); CHLORIDE LEVEL 105 MMOL/L (98-107); CREATININE FOR GFR 0.36 MG/DL (0.70-1.30); GLOMERULAR FILTRATION RATE > 60.0 (>60); GLUCOSE, FASTING 106 MG/DL (60-100); POTASSIUM SERUM 4.4 MMOL/L (3.5-5.1); SODIUM LEVEL 142 MMOL/L (136-145)
[2024-06-29 07:56] LABS: C REACTIVE PROTEIN QUANTITATIV 17.94 MG/DL (<1.0)
[2024-06-29 08:07] LABS: PROCALCITONIN 0.62 ng/ml
[2024-06-29 22:14] VITALS: BP 127/90; TEMP 97.9; O2SAT 95
[2024-06-29 22:20] VITALS: BP 112/80; TEMP 97.8; O2SAT 96
[2024-06-30 04:16] VITALS: BP 100/76; TEMP 98.1; O2SAT 95
[2024-06-30 07:55] LABS: BASO # 0.1 10^3/uL (0.0-0.2); BASO % 0.6 % (0.0-1.0); EOS # 0.3 10^3/uL (0.0-0.5); EOS % 2.8 % (0.0-3.0); HEMATOCRIT 31.3 % (42.0-52.0); HEMOGLOBIN 9.4 g/dl (13.5-17.5); LYMPH # 1.4 10^3/uL (1.5-5.0); LYMPH % 13.1 % (24.0-44.0); MEAN CORPUSCULAR HEMOGLOBIN 29.5 pg (27.0-33.0); MEAN CORPUSCULAR VOLUME 98.1 fl (80.0-96.0); MONO # 1.1 10^3/uL (0.0-0.8); MONO % 10.1 % (2.0-8.0); NEUTROPHILS # 7.5 10^3/uL (1.5-8.5); NEUTROPHILS % 69.4 % (36.0-66.0); PLATELET COUNT, AUTOMATED 575 10^3/uL (150-450); RED BLOOD COUNT 3.19 10^6/uL (4.30-6.10); WHITE BLOOD COUNT 10.8 10^3/uL (4.0-10.0)
[2024-06-30 08:25] LABS: BLOOD UREA NITROGEN 12 MG/DL (9-23); C REACTIVE PROTEIN QUANTITATIV 14.31 MG/DL (<1.0); CALCIUM LEVEL 9.6 MG/DL (8.5-10.1); CARBON DIOXIDE LEVEL 26 MMOL/L (20-31); CHLORIDE LEVEL 103 MMOL/L (98-107); GLOMERULAR FILTRATION RATE > 60.0 (>60); GLUCOSE, FASTING 96 MG/DL (60-100); POTASSIUM SERUM 4.3 MMOL/L (3.5-5.1); SODIUM LEVEL 139 MMOL/L (136-145)
[2024-06-30 22:41] VITALS: BP 123/90; TEMP 98.1; O2SAT 96
[2024-07-01 04:04] VITALS: BP 99/71; TEMP 98.4; O2SAT 97
[2024-07-01 05:53] LABS: HEMATOCRIT 28.7 % (42.0-52.0); HEMOGLOBIN 8.9 g/dl (13.5-17.5); MEAN CORPUSCULAR HEMOGLOBIN 29.8 pg (27.0-33.0); PLATELET COUNT, AUTOMATED 614 10^3/uL (150-450); RED BLOOD COUNT 2.99 10^6/uL (4.30-6.10); WHITE BLOOD COUNT 9.2 10^3/uL (4.0-10.0)
[2024-07-01 12:14] VITALS: BP 110/77; TEMP 98.1; O2SAT 96
[2024-07-01 20:00] VITALS: BP 112/78; TEMP 97.9; O2SAT 96
[2024-07-02 04:03] VITALS: BP 106/76; TEMP 97.7; O2SAT 96
[2024-07-02 09:00] VITALS: BP 106/76
[2024-07-02 09:53] LABS: BASO # 0.1 10^3/uL (0.0-0.2); EOS # 0.3 10^3/uL (0.0-0.5); EOS % 3.7 % (0.0-3.0); HEMATOCRIT 29.2 % (42.0-52.0); HEMOGLOBIN 8.9 g/dl (13.5-17.5); LYMPH # 1.6 10^3/uL (1.5-5.0); LYMPH % 18.9 % (24.0-44.0); MEAN CORPUSCULAR HEMOGLOBIN 29.8 pg (27.0-33.0); MEAN CORPUSCULAR HGB CONC 30.5 g/dl (32.0-36.5); MEAN CORPUSCULAR VOLUME 97.7 fl (80.0-96.0); MONO # 1.1 10^3/uL (0.0-0.8); MONO % 12.2 % (2.0-8.0); NEUTROPHILS # 5.5 10^3/uL (1.5-8.5); NEUTROPHILS % 63.1 % (36.0-66.0); PLATELET COUNT, AUTOMATED 633 10^3/uL (150-450); RED BLOOD COUNT 2.99 10^6/uL (4.30-6.10); WHITE BLOOD COUNT 8.7 10^3/uL (4.0-10.0)
[2024-07-02 10:22] LABS: BLOOD UREA NITROGEN 13 MG/DL (9-23); C REACTIVE PROTEIN QUANTITATIV 16.39 MG/DL (<1.0); CARBON DIOXIDE LEVEL 29 MMOL/L (20-31); CHLORIDE LEVEL 102 MMOL/L (98-107); CREATININE FOR GFR 0.39 MG/DL (0.70-1.30); GLOMERULAR FILTRATION RATE > 60.0 (>60); GLUCOSE, FASTING 98 MG/DL (60-100); POTASSIUM SERUM 3.7 MMOL/L (3.5-5.1); SODIUM LEVEL 139 MMOL/L (136-145)
[2024-07-02 10:29] LABS: PROCALCITONIN 0.22 ng/ml
[2024-07-02] MEDS ORDERED: OXYC1TAB23 PO (11:41)
[2024-07-02] MEDS ORDERED: FLUO-365 PO (11:41)
[2024-07-02] MEDS ORDERED: CEPH500C PO (11:41)
[2024-07-02] MEDS ORDERED: CARV12.5 PO (11:41)
[2024-07-02] MEDS ORDERED: REGL5TAB2 PO (11:41)
[2024-07-02 12:00] VITALS: BP 108/75; TEMP 98.1; O2SAT 95
[2024-07-05] MEDS ORDERED: LEVO1TAB38 PO (07:32)
== END 2024-07-02 15:33 | disposition home health service (06) | DRG 862 ==
LOC: EDBD 18:47 → M ED 18:47 → M ED INP 06-05 02:36 → M MSPAV 06-05 12:08
PROVIDERS: ADMIT Student in an Organized Health Care Education/Training Program; ATTEND Internal Medicine
PROC: 0W9J30Z Drainage of Pelvic Cavity with Drainage Device, Percutaneous Approach (ICD-10-PCS; principal; 2024-06-05 12:00)
PROC: 0W9G3ZZ Drainage of Peritoneal Cavity, Percutaneous Approach (ICD-10-PCS; 2024-06-18)
PROC: 0W9J30Z Drainage of Pelvic Cavity with Drainage Device, Percutaneous Approach (ICD-10-PCS; 2024-06-18)
PROC: 30233N1 Transfusion of Nonautologous Red Blood Cells into Peripheral Vein, Percutaneous Approach (ICD-10-PCS; 2024-06-20)
DX: T81.43XA Infection following a procedure, organ and space surgical site, initial encounter (principal); A41.9 Sepsis, unspecified organism; K65.1 Peritoneal abscess; R53.2 Functional quadriplegia; L89.154 Pressure ulcer of sacral region, stage 4; L89.114 Pressure ulcer of right upper back, stage 4; G80.0 Spastic quadriplegic cerebral palsy; L89.104 Pressure ulcer of unspecified part of back, stage 4; J90 Pleural effusion, not elsewhere classified; E46 Unspecified protein-calorie malnutrition; I31.39 Other pericardial effusion (noninflammatory); R18.8 Other ascites; K56.7 Ileus, unspecified; T83.518A Infection and inflammatory reaction due to other urinary catheter, initial encounter; K59.89 Other specified functional intestinal disorders; E78.5 Hyperlipidemia, unspecified; N31.9 Neuromuscular dysfunction of bladder, unspecified; Q05.9 Spina bifida, unspecified; D47.3 Essential (hemorrhagic) thrombocythemia; J45.909 Unspecified asthma, uncomplicated; I10 Essential (primary) hypertension; K21.9 Gastro-esophageal reflux disease without esophagitis; E88.09 Other disorders of plasma-protein metabolism, not elsewhere classified; D63.8 Anemia in other chronic diseases classified elsewhere; Z74.01 Bed confinement status; Z93.2 Ileostomy status; B96.20 Unspecified Escherichia coli [E. coli] as the cause of diseases classified elsewhere; B96.1 Klebsiella pneumoniae [K. pneumoniae] as the cause of diseases classified elsewhere; F32.A Depression, unspecified; G89.29 Other chronic pain; Z99.3 Dependence on wheelchair; G62.9 Polyneuropathy, unspecified; F41.9 Anxiety disorder, unspecified; Z86.718 Personal history of other venous thrombosis and embolism; Z98.2 Presence of cerebrospinal fluid drainage device; Z90.49 Acquired absence of other specified parts of digestive tract; Z79.899 Other long term (current) drug therapy; Z88.1 Allergy status to other antibiotic agents; Z88.6 Allergy status to analgesic agent; Z88.8 Allergy status to other drugs, medicaments and biological substances; Z91.040 Latex allergy status; I95.2 Hypotension due to drugs; T44.8X5A Adverse effect of centrally-acting and adrenergic-neuron-blocking agents, initial encounter; Y84.6 Urinary catheterization as the cause of abnormal reaction of the patient, or of later complication, without mention of misadventure at the time of the procedure; Y83.8 Other surgical procedures as the cause of abnormal reaction of the patient, or of later complication, without mention of misadventure at the time of the procedure

== ENCOUNTER → 2024-06-04 | Outpatient (CLI) | payer MEDICARE, MEDICAID ==
[~2024-06-04] MED LIST changes: +COLA100C5 PO; +FERR325T3 PO; +HYDR1CR TOP; +HYDR1CRE30 TOP; +LABE100T40 PO; +LABE100T6 PO; +MAGN50TA PO; +OXYC1TAB23 PO
[2024-06-04 15:09] LABS: HEMATOCRIT 33.3 % (42.0-52.0); HEMOGLOBIN 10.2 g/dl (13.5-17.5); MEAN CORPUSCULAR HEMOGLOBIN 29.5 pg (27.0-33.0); MEAN CORPUSCULAR HGB CONC 30.6 g/dl (32.0-36.5); MEAN CORPUSCULAR VOLUME 96.2 fl (80.0-96.0); PLATELET COUNT, AUTOMATED 583 10^3/uL (150-450); RED BLOOD COUNT 3.46 10^6/uL (4.30-6.10); WHITE BLOOD COUNT 26.4 10^3/uL (4.0-10.0)
[2024-06-04 15:39] LABS: LIPASE 31 U/L (12-53)
[2024-06-04 15:41] LABS: ALKALINE PHOSPHATASE 177 U/L (40-129); ALT/SGPT 15 U/L (7.0-40); AST/SGOT 21 U/L (<34); BILIRUBIN,TOTAL < 0.2 MG/DL (0.3-1.2); BLOOD UREA NITROGEN 9 MG/DL (9-23); CALCIUM LEVEL 9.2 MG/DL (8.5-10.1); CARBON DIOXIDE LEVEL 24 MMOL/L (20-31); CHLORIDE LEVEL 100 MMOL/L (98-107); CREATININE FOR GFR 0.39 MG/DL (0.70-1.30); GLOMERULAR FILTRATION RATE > 60.0 (>60); GLUCOSE, FASTING 78 MG/DL (60-100); MAGNESIUM LEVEL 2.1 MG/DL (1.8-2.4); POTASSIUM SERUM 5.2 MMOL/L (3.5-5.1); SODIUM LEVEL 134 MMOL/L (136-145); TOTAL PROTEIN 7.7 G/DL (5.7-8.2)
[2024-06-04 15:52] LABS: ANISOCYTOSIS 1+; ATYPICAL LYMPH 2 % (0-5); EOSINOPHILS 3 % (0-3); LYMPHOCYTES 10 % (16-44); MONOCYTES 4 % (0-5); NEUTROPHILS 80 % (28-66)
[2024-06-04 15:53] LABS: PLATELET ESTIMATE INCREASED (NORMAL)
[2024-06-04 15:54] LABS: HYPOCHROMASIA 1+
== END ==
LOC: M PLALAB 12:05
PROVIDERS: ATTEND Internal Medicine Infectious Disease
DX: M46.45 Discitis, unspecified, thoracolumbar region (principal); R11.0 Nausea

== ENCOUNTER 2024-07-03 13:24 | Emergency (ER) | payer MEDICARE ==
[~2024-07-03] VITALS: Ht 149.9 cm; Wt 37.7 kg
[~2024-07-03 13:24] MED LIST changes: +CARV12.5 PO; +CEPH500C PO; +FLUO-365 PO; +HYDR1CRE30 TOP; +LABE100T40 PO; +REGL5TAB2 PO
[2024-07-03 15:18] LABS: BASO # 0.1 10^3/uL (0.0-0.2); BASO % 0.6 % (0.0-1.0); EOS # 0.2 10^3/uL (0.0-0.5); EOS % 1.5 % (0.0-3.0); HEMATOCRIT 28.9 % (42.0-52.0); LYMPH # 1.2 10^3/uL (1.5-5.0); LYMPH % 11.1 % (24.0-44.0); MEAN CORPUSCULAR HEMOGLOBIN 29.8 pg (27.0-33.0); MEAN CORPUSCULAR HGB CONC 31.1 g/dl (32.0-36.5); MEAN CORPUSCULAR VOLUME 95.7 fl (80.0-96.0); MONO % 8.8 % (2.0-8.0); NEUTROPHILS # 8.6 10^3/uL (1.5-8.5); NEUTROPHILS % 77.1 % (36.0-66.0); PLATELET COUNT, AUTOMATED 759 10^3/uL (150-450); RED BLOOD COUNT 3.02 10^6/uL (4.30-6.10); WHITE BLOOD COUNT 11.1 10^3/uL (4.0-10.0)
[2024-07-03 15:44] LABS: LIPASE 21 U/L (12-53)
[2024-07-03 15:46] LABS: ALKALINE PHOSPHATASE 160 U/L (40-129); ALT/SGPT < 9 U/L (7.0-40); AST/SGOT 10 U/L (<34); BILIRUBIN,DIRECT 0.1 MG/DL (<0.4); BILIRUBIN,TOTAL 0.3 MG/DL (0.3-1.2); BLOOD UREA NITROGEN 8 MG/DL (9-23); CARBON DIOXIDE LEVEL 30 MMOL/L (20-31); CHLORIDE LEVEL 102 MMOL/L (98-107); CREATININE FOR GFR 0.36 MG/DL (0.70-1.30); GLOMERULAR FILTRATION RATE > 60.0 (>60); GLUCOSE, FASTING 90 MG/DL (60-100); POTASSIUM SERUM 3.7 MMOL/L (3.5-5.1); SODIUM LEVEL 139 MMOL/L (136-145); TOTAL PROTEIN 7.3 G/DL (5.7-8.2)
[2024-07-03] MEDS: MORPHINE 2 MG/ML 1ML VIAL IV ONE (16:17)
[2024-07-03 20:54] VITALS: BP 124/62; TEMP 98.5; O2SAT 96
[2024-07-05] MEDS ORDERED: LEVO1TAB38 PO (07:32)
== END 2024-07-03 21:07 | disposition home or self-care (01) ==
LOC: M ED 13:24 → EDBD 13:24 → M ED 21:07
DX: N30.00 Acute cystitis without hematuria (principal); Z87.448 Personal history of other diseases of urinary system; N31.9 Neuromuscular dysfunction of bladder, unspecified; Z79.899 Other long term (current) drug therapy; Z88.1 Allergy status to other antibiotic agents; Z88.8 Allergy status to other drugs, medicaments and biological substances; Z91.040 Latex allergy status

== ENCOUNTER → 2024-07-16 | Outpatient (CLI) | payer MEDICARE ==
[~2024-07-16] MED LIST changes: +ISOVUE-300 61% 100ML VIAL As Ordered ONE; +LEVO1TAB38 PO; +LIDOCAINE 1% MDV 20ML VIAL As Ordered ONE
[2024-07-16 11:16] VITALS: TEMP 98.5
[2024-07-16 12:15] VITALS: BP 129/84; O2SAT 100
== END ==
LOC: M IRPRO 10:54
PROVIDERS: ATTEND Radiology Diagnostic Radiology
DX: K65.1 Peritoneal abscess (principal)
CPT/HCPCS: 99212; Q9967

== ENCOUNTER → 2024-07-26 | Outpatient (CLI) | payer MEDICARE, MEDICAID ==
[~2024-07-26] MED LIST changes: -ISOVUE-300 61% 100ML VIAL As Ordered ONE; -LIDOCAINE 1% MDV 20ML VIAL As Ordered ONE
[2024-07-26 16:05] LABS: BASO # 0.1 10^3/uL (0.0-0.2); BASO % 0.6 % (0.0-1.0); EOS # 0.4 10^3/uL (0.0-0.5); EOS % 2.5 % (0.0-3.0); HEMATOCRIT 34.6 % (42.0-52.0); HEMOGLOBIN 10.3 g/dl (13.5-17.5); LYMPH % 13.8 % (24.0-44.0); MEAN CORPUSCULAR HEMOGLOBIN 28.2 pg (27.0-33.0); MEAN CORPUSCULAR HGB CONC 29.8 g/dl (32.0-36.5); MEAN CORPUSCULAR VOLUME 94.8 fl (80.0-96.0); MONO # 0.6 10^3/uL (0.0-0.8); MONO % 4.2 % (2.0-8.0); NEUTROPHILS % 77.8 % (36.0-66.0); PLATELET COUNT, AUTOMATED 735 10^3/uL (150-450); RED BLOOD COUNT 3.65 10^6/uL (4.30-6.10); WHITE BLOOD COUNT 14.1 10^3/uL (4.0-10.0)
[2024-07-26 16:15] LABS: ERYTHROCYTE SEDIMENTATION RATE 100 mm/hr (0-15)
[2024-07-26 16:21] LABS: C REACTIVE PROTEIN QUANTITATIV 12.61 MG/DL (<1.0)
[2024-07-26 16:22] LABS: ALBUMIN 2.3 G/DL (3.2-5.2); ALKALINE PHOSPHATASE 189 U/L (40-129); ALT/SGPT 28 U/L (7.0-40); AST/SGOT 25 U/L (<34); BILIRUBIN,TOTAL < 0.2 MG/DL (0.3-1.2); BLOOD UREA NITROGEN 8 MG/DL (9-23); CALCIUM LEVEL 9.3 MG/DL (8.5-10.1); CARBON DIOXIDE LEVEL 25 MMOL/L (20-31); CHLORIDE LEVEL 104 MMOL/L (98-107); CREATININE FOR GFR 0.35 MG/DL (0.70-1.30); GLOMERULAR FILTRATION RATE > 60.0 (>60); GLUCOSE, FASTING 86 MG/DL (60-100); POTASSIUM SERUM 4.2 MMOL/L (3.5-5.1); SODIUM LEVEL 143 MMOL/L (136-145); TOTAL PROTEIN 8.3 G/DL (5.7-8.2)
== END ==
LOC: M PLALAB 11:56
PROVIDERS: ATTEND Internal Medicine Infectious Disease
DX: M46.45 Discitis, unspecified, thoracolumbar region (principal)

== ENCOUNTER → 2024-08-10 | Outpatient (CLI) | payer MEDICARE, MEDICAID ==
[2024-08-10 13:32] LABS: ERYTHROCYTE SEDIMENTATION RATE > 130 mm/hr (0-15)
[2024-08-10 13:39] LABS: BASO # 0.1 10^3/uL (0.0-0.2); BASO % 0.7 % (0.0-1.0); EOS # 0.2 10^3/uL (0.0-0.5); EOS % 2.1 % (0.0-3.0); HEMATOCRIT 40.3 % (42.0-52.0); HEMOGLOBIN 11.7 g/dl (13.5-17.5); LYMPH # 1.4 10^3/uL (1.5-5.0); LYMPH % 14.7 % (24.0-44.0); MEAN CORPUSCULAR HEMOGLOBIN 28.1 pg (27.0-33.0); MEAN CORPUSCULAR VOLUME 96.6 fl (80.0-96.0); MONO # 0.4 10^3/uL (0.0-0.8); MONO % 4.5 % (2.0-8.0); NEUTROPHILS # 7.6 10^3/uL (1.5-8.5); NEUTROPHILS % 77.1 % (36.0-66.0); PLATELET COUNT, AUTOMATED 510 10^3/uL (150-450); RED BLOOD COUNT 4.17 10^6/uL (4.30-6.10); WHITE BLOOD COUNT 9.8 10^3/uL (4.0-10.0)
== END ==
LOC: M PLALAB 10:12
PROVIDERS: ATTEND Internal Medicine Infectious Disease
DX: M46.45 Discitis, unspecified, thoracolumbar region (principal); L89.314 Pressure ulcer of right buttock, stage 4

== ENCOUNTER → 2024-11-15 | Outpatient (CLI) | payer MEDICARE, MEDICAID ==
[2024-11-15 14:07] LABS: BASO # 0.1 10^3/uL (0.0-0.2); BASO % 0.6 % (0.0-1.0); EOS # 0.1 10^3/uL (0.0-0.5); EOS % 1.2 % (0.0-3.0); HEMATOCRIT 44.3 % (42.0-52.0); HEMOGLOBIN 13.4 g/dl (13.5-17.5); LYMPH # 1.8 10^3/uL (1.5-5.0); LYMPH % 15.9 % (24.0-44.0); MEAN CORPUSCULAR HEMOGLOBIN 27.2 pg (27.0-33.0); MEAN CORPUSCULAR HGB CONC 30.2 g/dl (32.0-36.5); MONO # 0.7 10^3/uL (0.0-0.8); MONO % 6.7 % (2.0-8.0); NEUTROPHILS # 8.2 10^3/uL (1.5-8.5); PLATELET COUNT, AUTOMATED 365 10^3/uL (150-450); RED BLOOD COUNT 4.92 10^6/uL (4.30-6.10)
[2024-11-15 14:16] LABS: ERYTHROCYTE SEDIMENTATION RATE 105 mm/hr (0-15)
[2024-11-15 14:29] LABS: C REACTIVE PROTEIN QUANTITATIV 7.19 MG/DL (<1.0)
[2024-11-15 14:30] LABS: ALBUMIN 3.4 G/DL (3.2-5.2); ALKALINE PHOSPHATASE 157 U/L (40-129); ALT/SGPT 51 U/L (7.0-40); AST/SGOT 32 U/L (<34); BILIRUBIN,TOTAL 0.2 MG/DL (0.3-1.2); BLOOD UREA NITROGEN 20 MG/DL (9-23); CALCIUM LEVEL 9.6 MG/DL (8.5-10.1); CARBON DIOXIDE LEVEL 20 MMOL/L (20-31); CHLORIDE LEVEL 103 MMOL/L (98-107); CREATININE FOR GFR 0.45 MG/DL (0.70-1.30); GLOMERULAR FILTRATION RATE > 90.0 (>60); GLUCOSE, FASTING 70 MG/DL (60-100); SODIUM LEVEL 136 MMOL/L (136-145); TOTAL PROTEIN 8.2 G/DL (5.7-8.2)
== END ==
LOC: M PLALAB 11:55
PROVIDERS: ATTEND Internal Medicine Infectious Disease
DX: M46.28 Osteomyelitis of vertebra, sacral and sacrococcygeal region (principal)
CPT/HCPCS: 36415; 80053; 85025; 85652; 86140; G0463